=== PATIENT | male | born 2000 | race African-American/Black ===

== ENCOUNTER 2021-04-18 11:58 | Inpatient (IN) | payer MEDICAID, OTHER ==
--- NOTE | 2021-04-18 12:45 | ED ---
Psych HPI - General Source: patient, family, RN notes reviewed Mode of arrival: ambulatory Limitations: no limitations <Reno Castillo - Last Filed: 04/18/21 12:44> <Roberto Ortiz - Last Filed: 04/18/21 16:31> - General Chief Complaint: Psychiatric Symptoms Stated Complaint: Mental Health Time Seen by Provider: 04/18/21 12:15 - History of Present Illness Initial Comments: This a 21-year-old male presents emergency from for evaluation of psychiatric issues. Patient states he stressed out needs help he is not very forthcoming on information per family patient reportedly has been using drugs. Patient does admit to some drug use but states it was only marijuana reports includes use of acid. Denies being suicidal denies any current L call use but states that he occasionally uses. No physical complaints. (Reno Castillo) - Related Data Allergies Allergy/AdvReac Type Severity Reaction Status Date / Time No Known Allergies Allergy Verified 04/18/21 12:12 Review of Systems ROS Other: All systems not noted in ROS Statement are negative. <Reno Castillo - Last Filed: 04/18/21 12:44> ROS Other: All systems not noted in ROS Statement are negative. <Roberto Ortiz - Last Filed: 04/18/21 16:31> ROS Statement: Those systems with pertinent positive or pertinent negative responses have been documented in the HPI. Past Medical History Past Medical History: No Reported History History of Any Multi-Drug Resistant Organisms: None Reported Past Surgical History: No Surgical Hx Reported Past Psychological History: No Psychological Hx Reported Smoking Status: Vaper Past Alcohol Use History: Occasional Past Drug Use History: Marijuana <Reno Castillo - Last Filed: 04/18/21 12:44> General Exam Limitations: no limitations General appearance: alert, in no apparent distress Head exam: Present: atraumatic, normocephalic, normal inspection Eye exam: Present: normal appearance, PERRL, EOMI. Absent: scleral icterus, conjunctival injection, periorbital swelling ENT exam: Present: normal exam, normal oropharynx, mucous membranes moist Neck exam: Present: normal inspection, full ROM. Absent: tenderness, meningismus, lymphadenopathy Respiratory exam: Present: normal lung sounds bilaterally. Absent: respiratory distress, wheezes, rales, rhonchi, stridor Cardiovascular Exam: Present: regular rate, normal rhythm, normal heart sounds. Absent: systolic murmur, diastolic murmur, rubs, gallop, clicks Neurological exam: Present: alert, oriented X3 Skin exam: Present: warm, dry, intact, normal color. Absent: rash <Reno Castillo - Last Filed: 04/18/21 12:44> Course Vital Signs 04/18/21 12:05 Temperature 97.7 F Pulse Rate 68 Respiratory 18 Rate Blood Pressure 118/76 O2 Sat by Pulse 96 Oximetry Medical Decision Making <Roberto Ortiz - Last Filed: 04/18/21 16:31> - Medical Decision Making Patient reevaluated and reexamined by myself, Dr. Ortiz. Patient resting comfortably in bed. I do agree with. Findings. This includes diagnostic patient and treatment plan. Positive clinical certificate was completed. Patient was earlier seen by mental health services who did recommend admission. (Roberto Ortiz) - Lab Data Lab Results 04/18/21 Range/Units 13:05 Urine Opiates Screen Not Detected (NotDetected) Ur Oxycodone Screen Not Detected (NotDetected) Urine Methadone Screen Not Detected (NotDetected) Ur Propoxyphene Screen Not Detected (NotDetected) Ur Barbiturates Screen Not Detected (NotDetected) U Tricyclic Antidepress Not Detected (NotDetected) Ur Phencyclidine Scrn Not Detected (NotDetected) Ur Amphetamines Screen Not Detected (NotDetected) U Methamphetamines Scrn Not Detected (NotDetected) U Benzodiazepines Scrn Not Detected (NotDetected) Urine Cocaine Screen Not Detected (NotDetected) U Marijuana (THC) Screen Detected H (NotDetected) Disposition <Reno Castillo - Last Filed: 04/18/21 12:44> Is patient prescribed a controlled substance at d/c from ED?: No Decision Time: 16:31 <Roberto Ortiz - Last Filed: 04/18/21 16:31> Clinical Impression: Acute psychosis, Depression Disposition: TRANSFER TO PSYCH HOSP/UNIT Referrals: None,Stated [Primary Care Provider] - 1-2 days
[2021-04-18 13:47] LABS: Amphetamine Screen,Urine Not Detected (NotDetected); Barbiturate Screen,Urine Not Detected (NotDetected); Benzodiazepines Screen,Urine Not Detected (NotDetected); Cocaine Screen,Urine Not Detected (NotDetected); Methadone Screen, Urine Not Detected (NotDetected); Opiate Screen,Urine Not Detected (NotDetected); Oxycodone Screen, Urine Not Detected (NotDetected); Phencyclidine Screen,Urine Not Detected (NotDetected); Tricyclic Antidepressant,Urine Not Detected (NotDetected); Urn Cannabinoid Scrn Detected (NotDetected)
[2021-04-18 20:00] VITALS: RESP 16
[2021-04-18] MEDS ORDERED: LORazepam 2 MG/ML INJ IM PRN (20:17)
[2021-04-18] MEDS ORDERED: HALOPERIDOL LACTATE 5 MG/ML 1 ML VIAL IM STA (20:19)
[2021-04-18] MEDS ORDERED: HALOPERIDOL LACTATE 5 MG/ML 1 ML VIAL IM PRN (20:19)
[2021-04-18] MEDS ORDERED: LORazepam 2 MG/ML INJ IM STA (20:19)
[2021-04-18] MEDS ORDERED: ACETAMINOPHEN TAB 325 MG TAB PO PRN (20:20)
[2021-04-18] MEDS ORDERED: LORazepam 1 MG TAB PO PRN (20:20)
[2021-04-18] MEDS ORDERED: MAGNESIUM HYDROXIDE 2,400 MG/10 ML CUP PO PRN (20:20)
[2021-04-18] MEDS ORDERED: MAG HYDROX/AL HYDROX/SIMETH 30 ML CUP PO PRN (20:20)
--- NOTE | 2021-04-19 00:49 | P.PN ---
Progress Note - Text Progress Note Date: 04/19/21 The patient was sedated and couldn't be evaluated. Will attempt again tomorrow.
[2021-04-19 07:33] LABS: ALT 13 U/L (4-49); AST 29 U/L (17-59); African American GFR (CKD) >90 (>60 ml/min/1.73 sqM); Albumin 4.7 g/dL (3.5-5.0); Alkaline Phosphatase 54 U/L (38-126); Anion Gap 7 mmol/L; Blood Urea Nitrogen 13 mg/dL (9-20); Calcium 9.7 mg/dL (8.4-10.2); Carbon Dioxide 28 mmol/L (22-30); Chloride 105 mmol/L (98-107); Glucose 95 mg/dL (74-99); Non-African American GFR(CKD) >90 (>60 ml/min/1.73 sqM); Potassium 4.4 mmol/L (3.5-5.1); Sodium 140 mmol/L (137-145); Total Bilirubin 1.1 mg/dL (0.2-1.3); Total Protein 7.3 g/dL (6.3-8.2)
[2021-04-19 07:35] LABS: Basophils % (A) 0 %; Eosinophils % (A) 1 %; HCT 44.6 % (39.0-53.0); HGB 14.7 gm/dL (13.0-17.5); Lymphocytes % (A) 29 %; MCHC 33.1 g/dL (31.0-37.0); MCV 87.9 fL (80.0-100.0); Mean Platelet Volume 6.8; Monocytes # (A) 0.2 k/uL (0-1.0); Monocytes % (A) 6 %; Neutrophils # (A) 2.1 k/uL (1.3-7.7); Neutrophils % (A) 62 %; Platelet Count 253 k/uL (150-450); RBC 5.07 m/uL (4.30-5.90); RDW 13.6 % (11.5-15.5); WBC 3.5 k/uL (4.0-11.0)
[2021-04-19] MEDS: OLANZapine 10 MG TAB PO SCH (21:54)
--- NOTE | 2021-04-19 23:18 | HP ---
HISTORY AND PHYSICAL DATE OF SERVICE: 04/19/2021 IDENTIFYING DATA: The patient is a 21-year-old male. He apparently is homeless. He presented to the ED on petition signed by his aunt. CHIEF COMPLAINT: The patient was hallucinating and had disorganized behavior. HISTORY OF PRESENTING ILLNESS: The patient was not able to provide any reliable information about his current circumstances. The purpose for admission is related primarily to what was documented on the petition that the aunt initiated. According to the petition, the patient was responding to internal stimuli. He was "talking to himself and not making any sense. Asking do we hear the voices and whispering that he's hearing. Tell us the TV is asking hi8m to do things. He asked my daughters do they hear the voices, and that if they see the color red or black that it was bad." He was making bizarre and disorganized statements. He made nonsense statements much of the time. He has not had a prior psychiatric hospitalization or other mental health intervention, according to the patient. The patient provided some information and suggested at one point that he was living with his girlfriend though perhaps has moved out. When I questioned this in more detail, he gave conflicting information. He said that he was living on [address], though also said that he had spent the past 2 nights at his aunt's house. His uncle was at the house and had made statements that he was acting very strange. The patient could not provide more information about what was documented in the petition. In fact, he was very adamant about the idea that the petition was not accurate. He said the only difficulties he was having were that he was having spells of being hot and cold. He could not give any more details of how that impacted his coming to the hospital. The patient apparently has not been on any psychotropic medications, either in the recent past or in the more distant past. The patient himself denied having hallucinations, delusions, depression, anxiety or post-traumatic symptoms. On the other hand, the petition clearly documents thought disorder. The patient did not feel he needed to be in the hospital and was requesting discharge. I did make a telephone contact with the patient's aunt with the patient in the room, though she did not answer. I left a message for a return call. The patient is admitted for further evaluation. SUBSTANCE USE HISTORY: The only reliable information is that the urine drug screen was positive for marijuana. The patient seemed to indicate he did not use other abusive substances. PAST MEDICAL HISTORY: None reported. FAMILY AND SOCIAL HISTORY: No information available. MENTAL STATUS EXAMINATION: The patient was quite restless. He gave fairly good eye contact. He would respond to questions with fairly clear thoughts, though mostly he responded in an argumentative way, saying that the questions I was asking him were irrelevant. He tended to ramble and would veer off into different subjects. At times it was hard to follow his train of thought. He would make statements about things in the distant past when I was asking questions about what was documented in the petition. At one point he started making some comments about being forced to wear white underwear, though he could not explain what he meant by that or what that situation could have been. His affect was intense. He had an angry manner. His mood was depressed. He was significantly distressed. He has been having auditory hallucinations and suggestions of paranoid delusions. It was difficult to assess for thoughts of harm. On cognitive exam, the patient did not answer formal cognitive questions. He was aware of circumstances and surroundings. He was able to make reference to recent events that were consistent with what is documented in the medical record. PHYSICAL EXAMINATION: As per medical consultation. ASSESSMENT: This is a 21-year-old male who is diagnosed with psychosis. Given that there is such limited information, it is difficult to make any assessment of what factors may be in play or what might be the most reasonable options for a treatment plan. Strengths include the patient's [place] intelligence. Weaknesses include disorganized thinking. DIAGNOSES: 1. Psychosis not otherwise specified. 2. Marijuana use. RECOMMENDATIONS: Patient will be admitted for comprehensive medical, psychiatric and psychosocial evaluation. We will engage the patient in individual and group therapeutic activities. I indicated to the patient that we could start some medication that might be helpful. The patient was not inclined to be taking medications. I did write an order for Zyprexa 10 mg at bedtime and indicated if he thought that he could use some help in terms of a medication that might improve his thinking and processing, that he could ask for the medication. As noted, I have a telephone call into with a message for a call back. I will make another call in the morning. I had an extensive discussion with the patient regarding the petition process. We will focus on stabilization and discharge planning. ISIAH / TOMY: [id number] / GALINDO
--- NOTE | 2021-04-20 01:10 | P.CONS ---
History of Present Illness - Reason for Consult Consult date: 04/20/21 - History of Present Illness Patient is a 21-year-old male with a PMH of marijuana abuse who presented to the emergency room with complaints of feeling stressed out and needing help. The patient was admitted to the mental health unit where he was seen and evaluated for medical consult. He reported feeling well and denied active complaints. He denied taking any medications including any [id number]-[id number] ones at home. Denied any mental history. Denied chest pain, shortness of breath, fever, chills, cough. Denied abdominal pain, nausea, vomiting, diarrhea. Laboratory evaluation was reviewed and was unremarkable. Review of Systems Pertinent positives and negatives as discussed in HPI, a complete review of systems was performed and all other systems are negative. Past Medical History Past Medical History: No Reported History History of Any Multi-Drug Resistant Organisms: None Reported Past Surgical History: No Surgical Hx Reported Past Psychological History: No Psychological Hx Reported Smoking Status: Vaper Past Alcohol Use History: Occasional Past Drug Use History: Marijuana Medications and Allergies Home Medications Medication Instructions Recorded Confirmed Type No Known Home Medications 04/18/21 04/18/21 History Allergies Allergy/AdvReac Type Severity Reaction Status Date / Time No Known Allergies Allergy Verified 04/18/21 17:01 Physical Exam General: non toxic, no distress, appears at stated age, normal weight Derm: no unusual rashes/lesions no unusual ecchymoses, warm, dry Head: atraumatic, normocephalic, symmetric Eyes: EOMI, no lid lag, anicteric sclera, pupils equal round reactive to light ENT: Nose and ears atraumatic, no thrush, no pharyngeal erythema Neck: No thyromegaly, no cervical lymphadenopathy, trachea midline, supple Mouth: no lip lesion, mucus membranes moist Cardiovascular: S1S2 reg, no murmur, positive posterior tibial pulse bilateral, no edema, capillary refill less than 2 seconds Lungs: CTA bilateral, no rhonchi, no rales , no accessory muscle use Abdominal: soft, nontender to palpation, no guarding, no appreciable organome carly, normal bowel sounds Ext: no gross muscle atrophy, muscle strength 5 out of 5 in all 4 extremities grossly, no contractures, Neuro: CN II-XI grossly intact, light touch intact all 4 extremities, finger to nose within normal limits, Psych: Alert, oriented, appropriate affect Results CBC & Chem 7: 04/19/21 06:45 04/19/21 06:45 Labs: Abnormal Lab Results - Last 24 Hours (Table) 04/19/21 Range/Units 06:45 WBC 3.5 L (4.0-11.0) k/uL Assessment and Plan Plan: Marijuana abuse -Advised on the importance of cessation Psychosis -As per psychiatry Thank you for allowing us to participate in the care of this patient. We will follow peripherally. Do not hesitate to contact us with questions. Someone can be reached from the [facility] hospitalist group at all hours of the day at [phone].
--- NOTE | 2021-04-20 16:41 | PN ---
PROGRESS NOTE DATE OF SERVICE: 04/20/2021. CHIEF COMPLAINT: The patient was hallucinating and had disorganized behavior. INTERVAL HISTORY: The patient has been doing fair. He had a quiet day yesterday. He does come out in the day area some. He does not interact too much with others. He will wander around. He did attend one group in the afternoon. For the most part, he keeps to himself. It is noteworthy that last evening he did except the Zyprexa in spite of the statements he made when I interviewed him that he did not see reason to take any medications. He slept well last night. Today he has been up. Again he has been wandering around some though mostly keeps to himself. When I talked to him today, it was noted that he talked in a very soft voice and had a very constrained manner. He would respond appropriately to questions, though only said 1 or 2 words in response. It is also noted that his thoughts were clear and coherent. He did not make any unusual or disconnected statements. He was polite and appropriate in his manner. His affect was constricted. His mood reserved. He seemed somewhat distressed and appeared to have a worried manner. He does not show any outward signs of disorganized thoughts from his psychotic symptoms he was having. He made no indications of thoughts of harm. He was oriented and alert. ASSESSMENT: I will continue the current diagnosis and treatment plan. We will continue to engage the patient in individual and group therapeutic activities. The patient is showing some progress in terms of his thoughts being a little clearer. That may be the impact of the 1st dose of Zyprexa that he took. At this point, we will continue him on just 10 mg a day. If he shows a little more progress tomorrow, there might be consideration for increasing his dose to potentially benefit him long-term. On the other hand, I am somewhat reluctant about pushing issues regarding medications until he shows some clear comfort with that part of the treatment. We will focus on stabilization and discharge planning. MMAPRYLL / TOMY: [id number] /
[2021-04-20] MEDS: OLANZapine 10 MG TAB PO SCH (20:57)
--- NOTE | 2021-04-21 12:29 | PN ---
PROGRESS NOTE DATE OF SERVICE: 04/21/2021 CHIEF COMPLAINT: The patient was hallucinating and had disorganized behavior. INTERVAL HISTORY: The patient has been doing fair. He had a quiet day yesterday. He comes out on the unit. He will wander about. At times he almost appears as if he has a bewildered manner. He pays some attention to things going on around him. He will interact a little, though he has a very quiet manner in his interaction. He attended two groups yesterday. It is noted that when I saw him for the interview and wrote my progress note, the patient presented in a very calm, reserved manner. He was somewhat apologetic. He was very polite. He had no complaints and seemed to be showing improvement. Later on in the day he came back to the office and he was in a more intense manner. He has gone back to making some complaints about why he is in the hospital and things about the petition process. He said it took him a while to fall asleep last night though he did some reading and got sleepy after he took his evening medication. Today he is up. He did attend a group this morning. Today when he is talking to me it is noted that he is in a very calm way. He, again, said thank you for the treatment that he has been receiving. He said he thinks the medications are helping him and he recognizes that he probably has been needing medications. He was not reluctant at all in regard to continuing in the hospital and continuing on medications. Seemed to be quite accepting of the plan for following through with a likely deferral and then setting up outpatient followup. He says he is comfortable going to [facility]. He anticipates living with his aunt in the interim and then hopefully getting set up in his own living situation. He tolerates his psychotropic medications. MENTAL STATUS: Patient sat with a little slowness in his movements. He gave fairly good eye contact. He talked in a soft voice. His kayleigh was somewhat slow. He answered questions with brief responses. He made some spontaneous comments, mainly in a very pleasant manner. His mood was reserved. He did not seem to be significantly distressed. He expressed no thoughts of harm to self or others. He does seem to suggest some continued issues of thought disorder, though is improving. He is oriented and alert. ASSESSMENT: I will continue the current diagnosis and treatment plan. I will increase Zyprexa to 15 mg at bedtime. The patient does seem to be showing progress. I discussed discharge planning issues with the patient. We will need to work on setting up followup through [facility] and possibly may need to make some contacts with family as far as living circumstances. We will focus on stabilization and discharge planning. ISIAH / TOMY: [id number] /
[2021-04-21 17:21] LABS: Amorphous Sediment,Urine Rare /hpf; Appearance,Urine Turbid (Clear); Bacteria,Urine Occasional /hpf; Bilirubin,Urine Negative (Negative); Blood,Urine Negative (Negative); Color,Urine Yellow; Glucose,Urine (UA) Negative (Negative); Ketones,Urine Negative (Negative); Leukocyte Esterase,Urine Trace (Negative); Mucus,Urine Rare /hpf; Nitrite,Urine Negative (Negative); Protein,Urine 1+ (Negative); RBC,Urine 2 /hpf (0-5); Specific Gravity,Urine 1.022 (1.001-1.035); Squamous Epithelial Cell,Urine 1 /hpf (0-4)
[2021-04-21] MEDS ORDERED: OLANZapine 10 MG TAB PO SCH (21:00)
--- NOTE | 2021-04-22 10:32 | P.PN ---
Progress Note - Text Progress Note Date: 04/22/21 Interval History: Patient was seen lying in his bed this morning and was directable and agreeable to speak with writer technical publications in the office. Patient appears to have fair hygiene and grooming and appeared to have a depressive affect. He spoke briefly about why he came in the hospital and states that he was seen things and hearing voices. He claims that he was hallucinating at home. He was fairly vague about his living situation and claims that now he is "kind of homeless". He claims that he has the motivation now to "buy a car and buy a house and get ". He states that he wants to be discharged so he can accomplish these goals. He was not able to describe the steps that he needs to take to achieve this. He states that his mood is depressed at times. He is denying any anxiety today. He states that she does hear voices at times however understands that they are people walking outside of his room. He states that he did not sleep well last night. At this time patient denies any suicidal or homical ideations, intent or plan. Patient denies any visual hallucinations and denies any paranoia or delusions. Patient denies any side effects from the medications and has been compliant with meds. Mental Status Exam: General Appearance: [Patient appears to be short in stature, well dressed, stated age is alert, directable, and cooperative.] Behavior: [Patient is calmly seated without any agitated behavior.] Constricted Speech: Patient's speech is fluent and nonpressured. Soft tone Mood/Affect: Mood is depressed however improving mildly, affect is congruent and constricted. Suicidality/Homicidality: Patient denies having any suicidal or homicidal ideation intent or plan. Perceptions: Patient denies any visual hallucinations [and denies any auditory hallucinations] Though content/process: Patient rambles, is tangential and circumstantial. Vague. Memory and concentration: AOX3, grossly intact for the purposes of this session Judgment and insight: Poor, Improving mildly Assessment Psychosis unspecified Cannabis use disorder Plan: -Patient continues to meet criteria for inpatient psychiatric admission for symptom stabilization and safety. Patient has [not] signed [adult voluntary form and] [medication consent] and was placed in patient's chart. -Medications: Decrease Zyprexa down to 10 mg daily at bedtime for psychosis/insomnia as patient does look oversedated. Added melatonin 5 mg daily at bedtime for sleep. Added Prozac 20 mg daily for mood/anxiety -When necessary Ativan and Haldol for agitation/aggression. -NRT - not needed as patient does not smoke -SW on board for discharge planning. Encouraged the patient to participate in milieu. Likely discharge in 2-3 days.
[2021-04-22] MEDS: FLUoxetine HCL 20 MG CAP PO SCH (12:08)
[2021-04-22] MEDS ORDERED: OLANZapine 10 MG TAB PO SCH (21:00)
[2021-04-22] MEDS ORDERED: MELATONIN 5 MG TABLET PO SCH (21:00)
[2021-04-23] MEDS: FLUoxetine HCL 20 MG CAP PO SCH (08:25)
[2021-04-23] MEDS ORDERED: diphenhydrAMINE 25 MG CAP PO PRN (10:25)
--- NOTE | 2021-04-23 10:26 | P.PN ---
Progress Note - Text Progress Note Date: 04/23/21 Interval History: Patient was seen lying in his bed this morning and was directable and agreeable to speak with sql report writer in the office. Patient appears to have fair hygiene and grooming. Patient was earlier seen in group. He continues to have a soft tone of voice however appeared to be more logical and communicative with sql report writer today. He claims that the voices have subsided for the most part however continues to state that "I hear voices outside the door" referring to staff and other patients in the hallways. He was fairly vague about his living situation once again however did state that he wants to be discharged today and go to his aunt's house. He continues to display fairly poor insight into his condition however is agreeable to continue with treatment and take his medications. He continues to claim that he wants to be discharged so he can reach his goals of "buy a car and buy a house and get ". He claims that his mood has been improving and is denying any anxiety today. He states that he did not sleep well last night. At this time patient denies any suicidal or homical ideations, intent or plan. Patient denies any visual hallucinations and denies any paranoia or delusions. Patient denies any side effects from the medications and has been compliant with meds. Mental Status Exam: General Appearance: Patient appears to be short in stature, well dressed, stated age is alert, directable, and cooperative. Behavior: Patient is calmly seated without any agitated behavior. Constricted Speech: Patient's speech is fluent and nonpressured. Soft tone Mood/Affect: Mood is improving mildly, affect is congruent and constricted. Suicidality/Homicidality: Patient denies having any suicidal or homicidal ideation intent or plan. Perceptions: Patient denies any visual hallucinations and denies any auditory hallucinations Though content/process: More goal oriented today. Not endorsing any delusions or paranoia. Memory and concentration: AOX3, grossly intact for the purposes of this session Judgment and insight: Improving mildly Assessment Psychosis unspecified Cannabis use disorder Plan: -Patient continues to meet criteria for inpatient psychiatric admission for symptom stabilization and safety. Patient has not signed adult voluntary form and medication consent and was placed in patient's chart. -Medications: Increased Zyprexa down to 15 mg daily at bedtime for psychosis/insomnia. Increased melatonin 10 mg daily at bedtime for sleep. Co ntinue with Prozac 20 mg daily for mood/anxiety. Added Benadryl 25 mg when necessary for insomnia. -When necessary Ativan and Haldol for agitation/aggression. -NRT - not needed as patient does not smoke -SW on board for discharge planning. Encouraged the patient to participate in milieu. Likely discharge in 1-2 days.
[2021-04-23] MEDS ORDERED: MELATONIN 5 MG TABLET PO SCH (21:00)
[2021-04-23] MEDS ORDERED: OLANZapine 5 MG TAB PO SCH (21:00)
[2021-04-24] MEDS: FLUoxetine HCL 20 MG CAP PO SCH (09:54)
[2021-04-24 10:05] VITALS: BP 122/64; PULSE 84; TEMP 97.5
--- NOTE | 2021-04-24 11:15 | P.DS ---
Providers Date of admission: 04/18/21 19:45 Expected date of discharge: 04/24/21 Attending physician: Filiberto Pearce MD Consults: 04/18/21 20:20 Consult Physician Routine Consulting Provider: Rajan Sloan Consult Reason/Comments: history and physical/medical management Do you want consulting provider notified?: Yes Primary care physician: Stated None - Discharge Diagnosis(es) (1) Unspecified psychosis Current Visit: Yes Status: Acute Priority: High (2) Cannabis abuse Current Visit: Yes Status: Acute Priority: Medium Hospital Course: Admission HPI: Admission note was completed by Dr. Huntley "patient is a 21-year-old male. He apparently is homeless. He presented to the ED on petition signed by his aunt. Patient was hallucinating and had disorganized behavior. The patient was not able to provide any reliable information about his current circumstances. The purpose for admission is related primarily to what was documented on the petition that the aunt initiated. According to the petition, the patient was responding to internal stimuli. He was "talking to himself and not making any sense". Asking to hear voices whispering that he is hearing. s do things. He asked my daughter's do they hear the voices, and if they see the color red or black that it was bad." He has not had any prior psychiatric hospitalization or mental health intervention, according to the patient. The patient provided some information and suggested one point that he was living with his girlfriend through though perhaps has moved out. When I questioned this in more detail he gave conflicting information. He said that he was living on [address], though also said that he had spent the last 2 nights it is intense. His uncle was at the house and had made statements that he was acting very strange. The patient could not provide more information about what was documented in the petition. In fact, he was very adamant about the idea that the petition was not accurate. He said the only difficulties he was having where that he was having spells of being hot and cold. He could not give any more details of how that impacted his coming to the hospital. The patient apparently has not been on any psychotropic medications, either in the recent past or in the more distant past. The patient himself denied having hallucinations, delusions, depression, anxiety or PTSD symptoms. On the other hand, the petition clearly documents thought disorder. The patient did not feel he needed to be in the hospital was requesting discharge. I did make a telephone contact with the patient's aunt with the patient in the room though she did not answer. I left a message for a return call. The patient is admitted for further evaluation. " Hospital course: Upon admission to the unit patient was initially bizarre and psychotic. Patient was however initially reluctant to take medications however with time and treatment patient gradually began being more compliant with treatment on the unit. Patient got along well with other patients on the unit and followed unit protocol. Patient was compliant with the medications and denied any side effects throughout hospital course. Patient was started on Zyprexa and titrated to a dose of 15 mg daily at bedtime for psychosis/insomnia. Patient was also started on melatonin and titrated up to dose of 10 mg daily at bedtime for sleep. Patient was also started on Prozac 20 mg daily for mood/anxiety.. Patient spoke of his stressors and engaged in therapy both group and individual. Patient was also seen by medical team for history and physical exam. Throughout the course of the hospitalization patient gradually improved with regards to psychosis, mood, anxiety, sleep and became more future oriented with improved insight and judgment. On the day of discharge patient denied any suicidal or homicidal ideations intent or plan denied any auditory or visual hallucinations. Patient endorsed wanting to live for his future and family and also to get a job in a house. The patient denied any access to guns or weapons. Patient denied any paranoia and did not endorse any delusions. Patient does have a significant history of substance abuse and was counseled on abstaining from all substances including alcohol and marijuana. Patient was offered however declined inpatient substance-abuse rehab. Patient was also counseled on the medications and need for regular compliance and was encouraged to follow-up with their outpatient appointment for mental health and also for primary care. Prior to discharge a family meeting will be arranged by social work msw to answer any questions and ensure safety upon discharge. Mental status exam: General Appearance: Patient appears to be short in stature, well dressed, stated age is alert, pleasant, and cooperative. Patient is in no acute distress and has improved hygiene and grooming Behavior: Patient is calmly seated without any agitated behavior. Speech: Patient's speech is fluent and nonpressured. Mood/Affect: Patient reports their mood is "better", affect is congruent and euthymic. Suicidality/Homicidality: Patient denies having any suicidal or homicidal ideation intent or plan. Perceptions: Patient denies any auditory or visual hallucinations. Though content/process: There is no evidence of any delusional thought content and thought process is linear and goal-directed. Memory and concentration: AOX3, grossly intact for the purposes of this session. Can spell "WORLD" backwards correctly. Judgment and insight: chronically poor, however has improved with guarded prognosis Impression: Psychosis unspecified Cannabis use disorder Plan: -Continue with discharge today as patient has improved and stabilized psychiatrically and is not currently an imminent threat to himself and/or others. Patient will remain at chronically elevated risk for harm to self and/or others due to his substance abuse. -Continue medications: Zyprexa 15 mg daily at bedtime for psychosis/insomnia, melatonin 10 mg for insomnia and prozac 20mg daily for mood/anxiety. -Patient was counseled on the need for medication compliance and appropriate follow-up at mental health and also primary care for medical issues. Patient verbalized understanding and agreed. -Social work to arrange for and conduct family meeting to ensure safety upon discharge and answer any questions/concerns. Social work also to arrange for patients follow up appointments with [facility] for psychiatric care along with follow up with primary care provider. Patient will be going back to stay with his aunt upon discharge. -Patient counseled on abstaining from recreational drugs and marijuana and alcohol. Was informed/educated on the adverse effects on their physical and mental health. Patient verbally agreed and understood. Patient was offered substance abuse treatment however declined at this time. -Patient was instructed to return to the hospital or seek immediate medical care if their psychiatric or medical symptoms do worsen or reoccur. Allergies Allergy/AdvReac Type Severity Reaction Status Date / Time No Known Allergies Allergy Verified 04/18/21 17:01 Laboratory Results WBC 3.5 k/uL (4.0-11.0) L 04/19/21 06:45 RBC 5.07 m/uL (4.30-5.90) 04/19/21 06:45 Hgb 14.7 gm/dL (13.0-17.5) 04/19/21 06:45 Hct 44.6 % (39.0-53.0) 04/19/21 06:45 MCV 87.9 fL (80.0-100.0) 04/19/21 06:45 MCH 29.0 pg (25.0-35.0) 04/19/21 06:45 MCHC 33.1 g/dL (31.0-37.0) 04/19/21 06:45 RDW 13.6 % (11.5-15.5) 04/19/21 06:45 Plt Count 253 k/uL (150-450) 04/19/21 06:45 MPV 6.8 04/19/21 06:45 Neutrophils % 62 % 04/19/21 06:45 Lymphocytes % 29 % 04/19/21 06:45 Monocytes % 6 % 04/19/21 06:45 Eosinophils % 1 % 04/19/21 06:45 Basophils % 0 % 04/19/21 06:45 Neutrophils # 2.1 k/uL (1.3-7.7) 04/19/21 06:45 Lymphocytes # 1.0 k/uL (1.0-4.8) 04/19/21 06:45 Monocytes # 0.2 k/uL (0-1.0) 04/19/21 06:45 Eosinophils # 0.0 k/uL (0-0.7) 04/19/21 06:45 Basophils # 0.0 k/uL (0-0.2) 04/19/21 06:45 Sodium 140 mmol/L (137-145) 04/19/21 06:45 Potassium 4.4 mmol/L (3.5-5.1) 04/19/21 06:45 Chloride 105 mmol/L (98-107) 04/19/21 06:45 Carbon Dioxide 28 mmol/L (22-30) 04/19/21 06:45 Anion Gap 7 mmol/L 04/19/21 06:45 BUN 13 mg/dL (9-20) 04/19/21 06:45 Creatinine 1.09 mg/dL (0.66-1.25) 04/19/21 06:45 Est GFR (CKD-EPI)AfAm >90 (>60 ml/min/1.73 sqM) 04/19/21 06:45 Est GFR (CKD-EPI)NonAf >90 (>60 ml/min/1.73 sqM) 04/19/21 06:45 Glucose 95 mg/dL (74-99) 04/19/21 06:45 Calcium 9.7 mg/dL (8.4-10.2) 04/19/21 06:45 Total Bilirubin 1.1 mg/dL (0.2-1.3) 04/19/21 06:45 AST 29 U/L (17-59) 04/19/21 06:45 ALT 13 U/L (4-49) 04/19/21 06:45 Alkaline Phosphatase 54 U/L (38-126) 04/19/21 06:45 Total Protein 7.3 g/dL (6.3-8.2) 04/19/21 06:45 Albumin 4.7 g/dL (3.5-5.0) 04/19/21 06:45 TSH 2.150 mIU/L (0.465-4.680) 04/19/21 06:45 Urine Color Yellow 04/21/21 17:04 Urine Appearance Turbid (Clear) 04/21/21 17:04 Urine pH 7.0 (5.0-8.0) 04/21/21 17:04 Ur Specific [place] 1.022 (1.001-1.035) 04/21/21 17:04 Urine Protein 1+ (Negative) H 04/21/21 17:04 Urine Glucose (UA) Negative (Negative) 04/21/21 17:04 Urine Ketones Negative (Negative) 04/21/21 17:04 Urine Blood Negative (Negative) 04/21/21 17:04 Urine Nitrite Negative (Negative) 04/21/21 17:04 Urine Bilirubin Negative (Negative) 04/21/21 17:04 Urine Urobilinogen 3.0 mg/dL (<2.0) 04/21/21 17:04 Ur Leukocyte Esterase Trace (Negative) H 04/21/21 17:04 Urine RBC 2 /hpf (0-5) 04/21/21 17:04 Ur Squamous Epith Cells 1 /hpf (0-4) 04/21/21 17:04 Amorphous Sediment Rare /hpf (None) H 04/21/21 17:04 Urine Bacteria Occasional /hpf (None) H 04/21/21 17:04 Urine Mucus Rare /hpf (None) H 04/21/21 17:04 Urine Opiates Screen Not Detected (NotDetected) 04/18/21 13:05 Ur Oxycodone Screen Not Detected (NotDetected) 04/18/21 13:05 Urine Methadone Screen Not Detected (NotDetected) 04/18/21 13:05 Ur Propoxyphene Screen Not Detected (NotDetected) 04/18/21 13:05 Ur Barbiturates Screen Not Detected (NotDetected) 04/18/21 13:05 U Tricyclic Antidepress Not Detected (NotDetected) 04/18/21 13:05 Ur Phencyclidine Scrn Not Detected (NotDetected) 04/18/21 13:05 Ur Amphetamines Screen Not Detected (NotDetected) 04/18/21 13:05 U Methamphetamines Scrn Not Detected (NotDetected) 04/18/21 13:05 U Benzodiazepines Scrn Not Detected (NotDetected) 04/18/21 13:05 Urine Cocaine Screen Not Detected (NotDetected) 04/18/21 13:05 U Marijuana (THC) Screen Detected (NotDetected) H 04/18/21 13:05 Coronavirus (PCR) Not Detected (Not Detectd) 04/18/21 16:11 Vital Signs Temp 97.5 F L 04/24/21 09:56 Pulse 84 04/24/21 09:56 Resp 16 04/24/21 09:56 BP 122/64 04/24/21 09:56 Pulse Ox 96 04/24/21 09:56 Patient Condition at Discharge: Stable Plan - Discharge Summary New Discharge Prescriptions: New Melatonin 10 mg PO HS 30 Days tablet FLUoxetine HCL [PROzac] 20 mg PO DAILY 30 Days cap OLANZapine [ZyPREXA] 15 mg PO HS 30 Days tablet Discharge Medication List FLUoxetine HCL [PROzac] 20 mg PO DAILY 30 Days cap 04/24/21 [Rx] Melatonin 10 mg PO HS 30 Days tablet 04/24/21 [Rx] OLANZapine [ZyPREXA] 15 mg PO HS 30 Days tablet 04/24/21 [Rx] Follow up Appointment(s)/Referral(s): None,Stated [Primary Care Provider] - 1-2 days Activity/Diet/Wound Care/Special Instructions: Activity and diet as tolerated. Avoid the use of street drugs and alcohol. Take all medications as prescribed. When you are in need of refills on your medications please contact your medical provider and/or outpatient psychiatrist to have this done. Please go to scheduled outpatient appointment for aftercare treatment. If symptoms return or become worse, call the crisis line at and/or go to the nearest emergency room for evaluation. Discharge Disposition: HOME SELF-CARE
== END 2021-04-24 15:21 | disposition home or self-care (01) | DRG 885 ==
LOC: EDSEX → EC 11:58 → 3MHU 19:45
PROVIDERS: ADMIT Psychiatry & Neurology Psychiatry; ATTEND Psychiatry & Neurology Psychiatry
DX: F23 Brief psychotic disorder (principal); F32.9 Major depressive disorder, single episode, unspecified; F12.10 Cannabis abuse, uncomplicated; F41.9 Anxiety disorder, unspecified; G47.00 Insomnia, unspecified; Z59.0 Homelessness; Z20.822 Contact with and (suspected) exposure to COVID-19
CPT/HCPCS: 80053; 80306; 81001; 84443; 85025; 87635; 99285

== ENCOUNTER 2021-04-27 21:31 | Inpatient (IN) | payer MEDICAID, OTHER ==
--- NOTE | 2021-04-27 22:22 | ED ---
Psych HPI - General Chief Complaint: Psychiatric Symptoms Stated Complaint: Mental Health Time Seen by Provider: 04/27/21 22:14 Source: patient, police, RN notes reviewed, old records reviewed Mode of arrival: ambulatory Limitations: no limitations - History of Present Illness Initial Comments: This is a 21 old male to the ER for evaluation patient presents today for evaluation regarding mental health. A short PD under petition. Patient's hearing hallucinations seeing things and acutely psychotic. Poor historian history obtained from EMS PD and patient's prior charting MD Complaint: altered mental status -: unknown Associated Psychiatric Symptoms: racing thoughts, auditory hallucinations Quality: constant Improves With: none Worsens With: none Context: not taking psychiatric medications, significant life stressor Associated Symptoms: denies other symptoms Treatments Prior to Arrival: placed on mental health hold - Related Data Previous Rx's Medication Instructions Recorded FLUoxetine HCL [PROzac] 20 mg PO DAILY 30 Days cap 04/24/21 Melatonin 10 mg PO HS 30 Days tablet 04/24/21 OLANZapine [ZyPREXA] 15 mg PO HS 30 Days tablet 04/24/21 Allergies Allergy/AdvReac Type Severity Reaction Status Date / Time No Known Allergies Allergy Verified 04/28/21 07:53 Review of Systems ROS Statement: Those systems with pertinent positive or pertinent negative responses have been documented in the HPI. ROS Other: All systems not noted in ROS Statement are negative. Past Medical History Past Medical History: No Reported History History of Any Multi-Drug Resistant Organisms: None Reported Past Surgical History: No Surgical Hx Reported Past Psychological History: Bipolar, Depression Smoking Status: Vaper Past Alcohol Use History: Occasional Past Drug Use History: Marijuana General Exam Limitations: no limitations General appearance: alert, in no apparent distress Head exam: Present: atraumatic, normocephalic, normal inspection Eye exam: Present: normal appearance, PERRL, EOMI. Absent: scleral icterus, conjunctival injection, periorbital swelling ENT exam: Present: normal exam, mucous membranes moist Neck exam: Present: normal inspection. Absent: tenderness, meningismus, lymphadenopathy Respiratory exam: Present: normal lung sounds bilaterally. Absent: respiratory distress, wheezes, rales, rhonchi, stridor Cardiovascular Exam: Present: regular rate, normal rhythm, normal heart sounds. Absent: systolic murmur, diastolic murmur, rubs, gallop, clicks GI/Abdominal exam: Present: soft, normal bowel sounds. Absent: distended, tenderness, guarding, rebound, rigid Extremities exam: Present: normal inspection, full ROM, normal capillary refill. Absent: tenderness, pedal edema, joint swelling, calf tenderness Back exam: Present: normal inspection Neurological exam: Present: alert, oriented X3, CN II-XII intact Psychiatric exam: Present: normal affect, normal mood Skin exam: Present: warm, dry, intact, normal color. Absent: rash Course Vital Signs 04/27/21 21:59 Temperature 97.8 F Pulse Rate 67 Respiratory 20 Rate Blood Pressure 115/76 O2 Sat by Pulse 99 Oximetry - Reevaluation(s) Reevaluation #1: Medically clear for psychiatric evaluation Medical Decision Making - Medical Decision Making 21 male seen evaluation psychiatry, patient be admitted for psychiatric evaluation and treatment - Lab Data Lab Results 04/27/21 04/27/21 Range/Units 22:26 23:28 Urine Color Colorless Urine Appearance Clear (Clear) Urine pH 6.0 (5.0-8.0) Ur Specific [place] 1.004 (1.001-1.035) Urine Protein Negative (Negative) Urine Glucose (UA) Negative (Negative) Urine Ketones Negative (Negative) Urine Blood Negative (Negative) Urine Nitrite Negative (Negative) Urine Bilirubin Negative (Negative) Urine Urobilinogen <2.0 (<2.0) mg/dL Ur Leukocyte Esterase Negative (Negative) Urine Opiates Screen Not Detected (NotDetected) Ur Oxycodone Screen Not Detected (NotDetected) Urine Methadone Screen Not Detected (NotDetected) Ur Propoxyphene Screen Not Detected (NotDetected) Ur Barbiturates Screen Not Detected (NotDetected) U Tricyclic Antidepress Not Detected (NotDetected) Ur Phencyclidine Scrn Not Detected (NotDetected) Ur Amphetamines Screen Not Detected (NotDetected) U Methamphetamines Scrn Not Detected (NotDetected) U Benzodiazepines Scrn Not Detected (NotDetected) Urine Cocaine Screen Not Detected (NotDetected) U Marijuana (THC) Screen Detected H (NotDetected) Coronavirus (PCR) Not Detected (Not Detectd) Disposition Clinical Impression: Acute psychosis, Unspecified psychosis Disposition: TRANSFER TO PSYCH HOSP/UNIT Condition: Fair Is patient prescribed a controlled substance at d/c from ED?: No
[2021-04-27 22:36] LABS: Appearance,Urine Clear (Clear); Bilirubin,Urine Negative (Negative); Blood,Urine Negative (Negative); Color,Urine Colorless; Glucose,Urine (UA) Negative (Negative); Ketones,Urine Negative (Negative); Leukocyte Esterase,Urine Negative (Negative); Nitrite,Urine Negative (Negative); Protein,Urine Negative (Negative); Specific Gravity,Urine 1.004 (1.001-1.035); Urobilinogen,Urine <2.0 mg/dL (<2.0)
[2021-04-27 22:45] LABS: Amphetamine Screen,Urine Not Detected (NotDetected); Barbiturate Screen,Urine Not Detected (NotDetected); Benzodiazepines Screen,Urine Not Detected (NotDetected); Cocaine Screen,Urine Not Detected (NotDetected); Methadone Screen, Urine Not Detected (NotDetected); Opiate Screen,Urine Not Detected (NotDetected); Oxycodone Screen, Urine Not Detected (NotDetected); Phencyclidine Screen,Urine Not Detected (NotDetected); Tricyclic Antidepressant,Urine Not Detected (NotDetected); Urn Cannabinoid Scrn Detected (NotDetected)
[2021-04-28] MEDS ORDERED: MAG HYDROX/AL HYDROX/SIMETH 30 ML CUP PO PRN (00:21)
[2021-04-28] MEDS ORDERED: ACETAMINOPHEN TAB 325 MG TAB PO PRN (00:21)
[2021-04-28] MEDS ORDERED: MAGNESIUM HYDROXIDE 2,400 MG/10 ML CUP PO PRN (00:21)
[2021-04-28] MEDS: OLANZapine 7.5 MG TAB PO SCH ×2 (01:21→20:13)
[2021-04-28] MEDS: HALOPERIDOL LACTATE 5 MG/ML 1 ML VIAL IM PRN (02:05)
[2021-04-28] MEDS: LORazepam 2 MG/ML INJ IM PRN (02:05)
[2021-04-28] MEDS ORDERED: chlorproMAZINE 25 MG/ML 2 ML AMP IM STA (02:34)
[2021-04-28] MEDS ORDERED: LORazepam 2 MG/ML INJ IM STA (02:35)
--- NOTE | 2021-04-28 02:43 | P.MHFACE ---
Face to Face Restrain/Seclus - Evaluation Patient's Immediate Situation: Violent behavior, Other (see comment) Patient's Immediate Situation - Comment: not following care orders , not cooperative with staff. violent behavior resisting care Patient's Reaction to the Intervention: Appropriate, Calm, Relaxed, Cooperative Patient's Medical & Behavioral Condition: Awake, Alert, Follows directions Need to Continue or Terminate Restraint or Seclusion: Terminate Face to Face Eval of Restraint Date: 04/28/21 Face to Face Eval of Restraint Time: 02:30
[2021-04-28] MEDS: FLUoxetine HCL 20 MG CAP PO SCH ×2 (11:22→11:52)
[2021-04-28] MEDS: NICOTINE 21MG/24HR PATCH TRANSDERM SCH ×2 (11:22→11:52)
--- NOTE | 2021-04-28 13:03 | P.HP ---
Psychiatric H&P - . H&P Date: 04/28/21 History & Physical: IDENTIFYING Data: Alexx Castaneda is a 21-year-old single male, who is currently homeless, unemployed, has psychiatric history of psychosis, and no reported medical history who was discharged from this unit last week, and brought back yesterday by the police because of psychotic and disorganized behavior. The patient has been admitted to our inpatient psychiatric services after been transferred from ED. The patient has been admitted on involuntary basis to our service. CHIEF COMPLAINT: Patient presented confused, disorganized and not able to give any specific complaint but states "I shouldn't be here" HISTORY OF PRESENT ILLNESS: the patient was recently discharged from this unit on 04/24/21 with discharge diagnosis of psychosis and was prescribed on discharge Prozac 20 mg daily, Zyprexa 15 mg at bedtime, and melatonin at bedtime. The patient was brought back to the hospital by the police yesterday after apparently his aunt called them. As per petition paper by the uniform patrol police officer; the patient presented confused, disoriented, and speaking statement didn't make sense such as "he couldn't be himself if he was facing the wall". According to his aunt "Vandana" the patient was not taking his medications and was hallucinating. Patient was saying people on the TV are out to get him and he was hearing erratic conversation on the TV. Also, she added patient was always acting very agitated. After the patient brought to the hospital and admitted to the unit, he became very agitated at the unit,refused admission, resisted security and was trying to get out of the wheelchair and probably elope. According to the nursing note, patient continued to be agitated was bizarre thoughts. Patient begun to take threatening position with clenching his fists and ready to fight. He refused to cooperate, and started to flight staff. More supportive the staff called to the unit and the patient was medicated with Haldol 5 mg IM and Ativan 1 mg and the patient was placed in 4-point restraints for safety. Based on evaluation today,the patient was calm but not cooperative, very guarded, paranoid, and internally preoccupied. The patient was not able to give informative history, or explain why he was brought back to the hospital. He was talking about try to get his phone from his aunt, and he should not be here. Patient was talking bizarre and nonsensical that when he asking about paranoid thoughts or any delusions, answered "I'm feeling alone", "I have abandonment issue". Patient reports that he doesn't like to be around people but he didn't answer questions about delusions, hallucinations, or paranoid thoughts. He was asking me to write down that his thoughts are in peace. Didn't answer question if he was taking medications are not after discharge, but apparently he was not taking medications. Patient refused to sign consent to take his psychiatric medications during this hospitalization after he read the consent for more than 10 minutes. Patient continued to state "I shouldn't be here", but he didn't show any aggressive or agitated behavior today. Patient didn't answer anymore questions, and he left. Generally, the patient presented disorganized, with very poor eye contact and at times confused. PAST PSYCHIATRIC HISTORY: Previous diagnoses: psychosis NOS, cannabis use disorder Previous psychiatric hospitalizations: patient was recently discharged from this unit on 04/24/21. Previous suicide attempts: none reported Previous outpatient psychiatric treatment: none reported. Patient reports didn't follow with any outpatient treatment. Current psychiatric medications: patient was discharged last week on medications Zyprexa, Prozac, and melatonin SUBSTANCE ABUSE HISTORY: patient is very poor historian due to disorganized thoughts. No information available, but according to his previous admission he was positive for marijuana. This time drug screen was negative. Social History: no information available. Patient is homeless, on Social Security disability. Patient refused to give consent to speak to his aunt. History of psychological trauma: none reported FAMILY HISTORY: no information available Medical History: none reported MENTAL STATUS EVALUATION: Appearance: Appears stated age, not-well groomed, average body built, and no specific features. Gait/ posture: Steady gait, normal arm swinging, no abnormal movements, with relaxed posture. Attitude and Behavior: Not cooperative, not engaged, poor eye contact during course of interview. Motor Activity: decreased psychomotor activity. Speech: spontaneous, slow rate, rhythm, and articulation. soft volume. Not pressured. Mood: "anxious" Affect: flat Thought process: disorganized. Thought content: Paranoid delusions, no report of suicidal thoughts, homicidal thoughts, intentions, or plans. Perception: Patient seems internally preoccupied. Reportedly has auditory hallucinations. Alertness: No impairment. Concentration: impaired Orientation: Oriented to time, place, person and situation Insight regarding psychiatric condition: very limited Judgment regarding daily activities and social situation: limited Impulse control: limited Strengths: stable general medical condition. Financial income. Challenges: poor compliance with treatment. Homeless. Limited social supports. Allergies Allergy/AdvReac Type Severity Reaction Status Date / Time No Known Allergies Allergy Verified 04/28/21 07:53 Vital Signs Temp 97.4 F L 04/28/21 02:10 Pulse 80 04/28/21 02:10 Resp 18 04/28/21 02:10 BP 114/56 04/28/21 02:10 Pulse Ox 97 04/28/21 02:10 Intake & Output 04/27/21 04/28/21 04/28/21 18:59 06:59 18:59 Weight 68.039 kg Review of Lab results: Laboratory Last Values Urine Color Colorless 04/27/21 22:26 Urine Appearance Clear (Clear) 04/27/21 22:26 Urine pH 6.0 (5.0-8.0) 04/27/21 22:26 Ur Specific [place] 1.004 (1.001-1.035) 04/27/21 22:26 Urine Protein Negative (Negative) 04/27/21 22:26 Urine Glucose (UA) Negative (Negative) 04/27/21 22:26 Urine Ketones Negative (Negative) 04/27/21 22:26 Urine Blood Negative (Negative) 04/27/21 22:26 Urine Nitrite Negative (Negative) 04/27/21 22:26 Urine Bilirubin Negative (Negative) 04/27/21 22:26 Urine Urobilinogen <2.0 mg/dL (<2.0) 04/27/21 22:26 Ur Leukocyte Esterase Negative (Negative) 04/27/21 22:26 Urine Opiates Screen Not Detected (NotDetected) 04/27/21 22:26 Ur Oxycodone Screen Not Detected (NotDetected) 04/27/21 22:26 Urine Methadone Screen Not Detected (NotDetected) 04/27/21 22:26 Ur Propoxyphene Screen Not Detected (NotDetected) 04/27/21 22:26 Ur Barbiturates Screen Not Detected (NotDetected) 04/27/21 22:26 U Tricyclic Antidepress Not Detected (NotDetected) 04/27/21 22:26 Ur Phencyclidine Scrn Not Detected (NotDetected) 04/27/21 22:26 Ur Amphetamines Screen Not Detected (NotDetected) 04/27/21 22:26 U Methamphetamines Scrn Not Detected (NotDetected) 04/27/21 22:26 U Benzodiazepines Scrn Not Detected (NotDetected) 04/27/21 22:26 Urine Cocaine Screen Not Detected (NotDetected) 04/27/21 22:26 U Marijuana (THC) Screen Detected (NotDetected) H 04/27/21 22:26 Coronavirus (PCR) Not Detected (Not Detectd) 04/27/21 23:28 Assessment: psychosis unspecified. Rule out schizoaffective disorder. Rule out schizophrenia. TREATMENT PLAN/RECOMMENDATIONS: Medical Decision making: The patient presented with psychotic bizarre behavior. The patient at high risk to hurt self and others if he is not in the inpatient setting. The patient's psychiatric symptoms are not stable and he needs further management of psychiatric medications and further planning for discharge. Therefore, inpatient level of care is needed. Continue the patient inpatient for safety. Continue the patient under 15 minutes safe check for safety. Continue treatment of psychotic and mood symptoms. Psych education regarding his diagnosis, and treatment option. The patient will also be provided with individual therapy, group therapy, substance abuse counseling, gain insight, and coping skills. Consider medical consultation if any acute medical issue arise. Medications: Continue previous psychiatric medications including Prozac 20 mg daily for depression, Zyprexa 10 mg at bedtime for psychosis and mood stabilization, and melatonin 10 mg at bedtime for insomnia Labs: none Prognosis is guarded, contingent on patient compliance with his medications and has been followed up closely with outpatient mental health provider after discharge. The patient will be assessed on daily basis, and will be discharged back to his outpatient mental health provider upon stabilization. EXPECTED LENGTH OF STAY: 7 days. 04/28/21 12:25
[2021-04-28] MEDS: MELATONIN 5 MG TABLET PO SCH (22:00)
[2021-04-29] MEDS: NICOTINE 21MG/24HR PATCH TRANSDERM SCH (08:51)
[2021-04-29] MEDS: FLUoxetine HCL 20 MG CAP PO SCH (08:52)
--- NOTE | 2021-04-29 10:07 | P.PN ---
Progress Note - Text Progress Note Date: 04/29/21 Interval History: Patient was seen laying in his bed this morning with the sheets covering his f sabi. Patient did not respond to advertising writer when he was called and simply "his eyes looked up advertising writer and then continue to close his eyes. He did not respond to any verbal commands. According to RN today patient was very hesitant in taking his a.m. medications. patient has been compliant with his medications for the most part well on the unit. Patient refused to answer any questions with advertising writer carleen winter the evaluation. Mental Status Exam: General Appearance: Patient appears to be stated age, short in stature, is somnolent and uncooperative. Behavior: Patient is calmly laying in his bed without any agitated behavior. somnolent Speech: unable to assess Mood/Affect: unable to assess Suicidality/Homicidality: unable to assess Perceptions: unable to assess. Though content/process: unable to assess Memory and concentration: unable to assess Judgment and insight: poor Assessment psychosis unspecified Cannabis use disorder Nicotine dependence Plan: -Patient continues to meet criteria for inpatient psychiatric admission for symptom stabilization and safety. Patient has signed [adult voluntary form and was placed in patient's chart. -Medications: discontinued Prozac and Zyprexa due to patient's noncompliance. We will start paliperidone by mouth 3 mg daily at bedtime for psychosis and also started Zoloft on Thursday 50 mg daily for mood -When necessary Ativan and Haldol for agitation/aggression. -NRT - nicotine patch -SW on board for discharge planning. Encouraged the patient to participate in milieu. Currently awaiting deferral with trust and estates attorney and court date
--- NOTE | 2021-04-29 15:22 | P.HPMEDMHU ---
History of Present Illness H&P Date: 04/29/21 Chief Complaint: Brought in by police for psychotic behavior Patient is a 21-year-old male with past medical history of psychosis and is currently homeless who was brought in by police for psychotic and disorganized behavior. Patient was recently discharged from the inpatient psych unit one week ago. Patient currently states that he feels fine and he does not believe he needs to be in the hospital. Patient refused physical exam. Patient states that he does not take any medications. Review of Systems 10 ROS reviewed and are negative except as noted in HPI Past Medical History Past Medical History: No Reported History History of Any Multi-Drug Resistant Organisms: None Reported Past Surgical History: No Surgical Hx Reported Past Psychological History: Bipolar, Depression Smoking Status: Former smoker Past Alcohol Use History: None Reported Additional Past Alcohol Use History / Comment(s): pt states that he has not smoked for the past month. pt denies having used vape pen. Past Drug Use History: Marijuana Medications and Allergies Home Medications Medication Instructions Recorded Confirmed Type FLUoxetine HCL [PROzac] 20 mg PO DAILY 30 Days cap 04/24/21 04/28/21 Rx Melatonin 10 mg PO HS 30 Days tablet 04/24/21 04/28/21 Rx OLANZapine [ZyPREXA] 15 mg PO HS 30 Days tablet 04/24/21 04/28/21 Rx Allergies Allergy/AdvReac Type Severity Reaction Status Date / Time No Known Allergies Allergy Verified 04/28/21 07:53 Physical Exam Vitals: Vital Signs Temp Pulse Resp BP 04/29/21 09:26 97.8 F 04/29/21 07:29 97.7 F 52 L 16 101/55 Intake and Output 04/29/21 04/29/21 04/29/21 06:59 14:59 22:59 Other: Weight 60.8 kg Patient refused physical exam Cranial Nerve Examination - Cranial Nerves Cranial Nerve II- Optic: Intact (Patient refused all examination) Cranial Nerve III- Oculomotor: Intact Cranial Nerve IV- Trochlear: Intact Cranial Nerve V- Trigeminal: Intact Cranial Nerve - Abducens: Intact Cranial Nerve VII- Facial: Intact Cranial Nerve VIII- Auditory: Intact Cranial Nerve IX- Glossopharyngeal: Intact Cranial Nerve X- Vagus: Intact Cranial Nerve XI- Accessory: Intact Cranial Nerve XII- Hypoglossal: Intact Thrombosis Risk Factor Assmnt - Choose All That Apply Any of the Below Risk Factors Present?: No Other Risk Factors: No Other congenital or acquired thrombophilia - If yes, enter type in comment: No Thrombosis Risk Factor Assessment Level: Very Low Risk Assessment and Plan Assessment: -As per your psychiatry management Marijuana abuse -Patient counseled on cessation Thank you for allowing us to participate in the care of this patient. We will follow peripherally. Do not hesitate to contact us with questions.
[2021-04-29] MEDS ORDERED: PALIPERIDONE 3 MG TAB.ER.24 PO SCH (21:00)
[2021-04-29] MEDS: MELATONIN 5 MG TABLET PO SCH (21:11)
[2021-04-30] MEDS: NICOTINE 21MG/24HR PATCH TRANSDERM SCH (08:28)
--- NOTE | 2021-04-30 09:30 | P.PN ---
Progress Note - Text Progress Note Date: 04/30/21 Interval History: Patient was seen wandering the hallways this morning and was agreeable to speak to real estate underwriter in the office. Patient was fairly argumentative with real estate underwriter today and continues to demand discharge. He has very poor insight into his mental illness and his need for hospitalization and treatment. He continues to say "I don't have a mental illness out of need to be her in the hospital at me go". He claims that the hospital is violating his rights. He did not offer any overnight complaints and states that he slept fairly. He is denying any depression or anxiety today. He claims that he is taking his medications however states that when he leaves the hospital she does not want to take any more medications". Today patient is denying any auditory or visual hallucinations and denying any suicidal or homicidal ideations intent or plan. Mental Status Exam: General Appearance: Patient appears to be stated age, short in stature, is alert, well-dressed, uncooperative and argumentative. Behavior: Patient is sitting in the chair, no agitation. Uncooperative. Speech: Fluent and nonpressured. Mood/Affect: Patient claims that his mood is "fine" and affect is incongruent. Suicidality/Homicidality: Denies Perceptions: Denies any auditory or visual hallucinations. Though content/process: Preoccupied with discharge. Very poor insight into his condition. Argumentative and demanding. Memory and concentration: Alert and oriented 3, fair attention span. Judgment and insight: poor Assessment psychosis unspecified Cannabis use disorder Nicotine dependence Plan: -Patient continues to meet criteria for inpatient psychiatric admission for symptom stabilization and safety. Patient has not signed adult voluntary form and was placed in patient's chart. -Medications: Increased paliperidone by mouth 6 mg daily at bedtime for psychosis. start Zoloft on Thursday 50 mg daily for mood -When necessary Ativan and Haldol for agitation/aggression. -NRT - nicotine patch -SW on board for discharge planning. Encouraged the patient to participate in milieu. Demand for hearing was filed and waiting on court date.
[2021-04-30] MEDS: haloperidoL 5 MG TAB PO PRN (14:11)
[2021-04-30] MEDS: LORazepam 1 MG TAB PO PRN (14:11)
[2021-04-30] MEDS ORDERED: LORazepam 2 MG/ML INJ IM STA (14:20)
[2021-04-30] MEDS ORDERED: LORazepam 1 MG TAB PO STA (14:20)
[2021-04-30] MEDS: MELATONIN 5 MG TABLET PO SCH (20:48)
[2021-04-30] MEDS ORDERED: PALIPERIDONE 6 MG TAB.ER.24 PO SCH (21:00)
[2021-05-01] MEDS: SERTRALINE 50 MG TAB PO SCH (08:20)
[2021-05-01] MEDS: NICOTINE 21MG/24HR PATCH TRANSDERM SCH (08:20)
--- NOTE | 2021-05-01 09:15 | P.PN ---
Progress Note - Text Progress Note Date: 05/01/21 Interval History: Patient was seen wandering the hallways this morning and was up near the nurse's desk requesting his court papers and was agreeable to speak to ad writer in the office. Patient was very fixated today once again on being discharged and answered questions very superficially and quickly changes the subject back to his discharge. He continues to state that "I'm doing everything you want you guys are still violating my rights". He wanted to keep the door open in the office as he states that "I dont know what shenanigans you guys are doing and I want people to hear this". He was fairly paranoid today. He claims that he has been taking his medications and is denying any side effects. He claims that he is eating fairly and taking a shower. He continues to state that he wants to be with his family and continues to display very poor insight and judgment. He did not offer any overnight complaints and states that he slept fairly. He is denying any depression or anxiety today. Today patient is denying any auditory or visual hallucinations and denying any suicidal or homicidal ideations intent or plan. Mental Status Exam: General Appearance: Patient appears to be stated age, short in stature, is alert, well-dressed, uncooperative and argumentative. Behavior: Patient is sitting in the chair, no agitation. Demanding Speech: Fluent and nonpressured. Mood/Affect: Patient claims that his mood is "ok" and affect is incongruent and constricted. Suicidality/Homicidality: Denies Perceptions: Denies any auditory or visual hallucinations. Though content/process: Preoccupied with discharge. Very poor insight into his condition. Argumentative and demanding. Memory and concentration: Alert and oriented 3, fair attention span. Judgment and insight: poor Assessment psychosis unspecified Cannabis use disorder Nicotine dependence Plan: -Patient continues to meet criteria for inpatient psychiatric admission for symptom stabilization and safety. Patient has not signed adult voluntary form and was placed in patient's chart. -Medications: changed paliperidone by mouth 6 mg daily for psychosis. continue with Zoloft 50 mg daily for mood -When necessary Ativan and Haldol for agitation/aggression. -NRT - nicotine patch -SW on board for discharge planning. Encouraged the patient to participate in milieu. Patient has his demand court date set for 05/15/21
[2021-05-01] MEDS: LORazepam 1 MG TAB PO PRN (09:27)
[2021-05-01] MEDS: PALIPERIDONE 6 MG TAB.ER.24 PO SCH (09:27)
[2021-05-01] MEDS: MELATONIN 5 MG TABLET PO SCH (20:59)
[2021-05-02] MEDS: PALIPERIDONE 6 MG TAB.ER.24 PO SCH (08:22)
[2021-05-02] MEDS: NICOTINE 21MG/24HR PATCH TRANSDERM SCH (08:22)
[2021-05-02] MEDS: SERTRALINE 50 MG TAB PO SCH (08:22)
--- NOTE | 2021-05-02 12:33 | P.PN ---
Progress Note - Text Progress Note Date: 05/02/21 Interval History: Patient was seen wandering the hallways this morning and was up near the nurse's desk and was agreeable to seek to show card writer in the office today. Patient continues to be fairly preoccupied with discharged. He states that he is willing to sign "anything" and is agreeable to sign the waive and stip to agree to the treatment. He continues to have fairly poor insight and judgment however today he was more cooperative and less argumentative with show card writer. He was more directable during the conversation. He claims that his mood and anxiety have been gradually improving on the unit. He states that he has been dealing with depression for several years now. He claims that he is able to sleep fairly last night however did not have appetite this morning. Today patient is denying any auditory or visual hallucinations and denying any suicidal or homicidal ideations intent or plan. Mental Status Exam: General Appearance: Patient appears to be stated age, short in stature, is alert, well-dressed, more cooperative today. Behavior: Patient is sitting in the chair, no agitation. less Demanding Speech: Fluent and nonpressured. Mood/Affect: Patient claims that his mood is "fine" and affect is incongruent and constricted. Suicidality/Homicidality: Denies Perceptions: Denies any auditory or visual hallucinations. Though content/process: Preoccupied with discharge. Very poor insight into his condition. Calmer today. Memory and concentration: Alert and oriented 3, fair attention span. Judgment and insight: poor, improving mildly Assessment psychosis unspecified Cannabis use disorder Nicotine dependence Plan: -Patient continues to meet criteria for inpatient psychiatric admission for symptom stabilization and safety. Patient has not signed adult voluntary form and was placed in patient's chart. -Medications: Continue with paliperidone by mouth 6 mg daily for psychosis. Will adjust invega accordingly and likely transition patient onto Invega sustenna AKERS to ensure compliance. continue with Zoloft 50 mg daily for mood -When necessary Ativan and Haldol for agitation/aggression. -NRT - nicotine patch -SW on board for discharge planning. Encouraged the patient to participate in milieu. Patient has his demand court date set for 05/15/21. Patient was requestin g to sign the waive and stip with his claim attorney.
[2021-05-02] MEDS: MELATONIN 5 MG TABLET PO SCH (21:26)
[2021-05-03] MEDS: PALIPERIDONE 6 MG TAB.ER.24 PO SCH (08:38)
[2021-05-03] MEDS: SERTRALINE 50 MG TAB PO SCH (08:38)
[2021-05-03] MEDS: NICOTINE 21MG/24HR PATCH TRANSDERM SCH (08:42)
[2021-05-03] MEDS: LORazepam 1 MG TAB PO PRN ×2 (11:22→16:47)
[2021-05-03] MEDS ORDERED: PALIPERIDONE IM 234 MG/1.5 ML SYG IM STA (12:08)
[2021-05-03] MEDS: haloperidoL 5 MG TAB PO PRN (16:47)
[2021-05-03] MEDS: HALOPERIDOL LACTATE 5 MG/ML 1 ML VIAL IM PRN (16:59)
[2021-05-03] MEDS: LORazepam 2 MG/ML INJ IM PRN (16:59)
--- NOTE | 2021-05-03 18:38 | PN ---
PROGRESS NOTE DATE OF SERVICE: 05/03/2021 CHIEF COMPLAINT: The patient was confused, disorganized, and was hallucinating. He was just discharged on 04/24/2021 from this unit. INTERVAL HISTORY: The patient has been doing fair. He continues with ups and downs in his function as well as thought process. Yesterday he was out in the day area a fair amount. He will make random comments. It is not clear he really interacts to any significant degree with others. He did attend groups. Sometimes he seems more organized in his thoughts and other times not. He often will approach staff mainly hoping to be discharged. He had his court hearing and is now under a treatment order. He slept fairly well last night. Today he has been up. He continues to do about the same. He wanders about. He will often approach staff where he will bring up a subject and then can perseverate on that. One example was around 12:30 he kept seeking out staff saying he was hungry even though he knew lunch was ready at 1:00. He got into an episode this morning where he started swearing and became verbally aggressive towards others. He said he wanted something to calm down though when offered a p.r.n. he declined it. He requested a snack and then declined the snack as well. Eventually he seemed to be able to get back to his baseline where he would walk around. He would have a slight smile on his face. He continues to seem quite confused and disorganized in thoughts. He tolerates his psychotropic medications. MENTAL STATUS: Patient was a little restless. He responded to questions in a soft, at times almost airy voice. He generally would give answers that were somewhat tangential. He perseverated on discharge as well as needing lunch. He had a blunted affect. His mood was down. He seemed moderately distressed. He continues to show indications of paranoid delusions and does respond to apparent internal stimuli night. He voiced no thoughts of harm to self. He did make an effort to answer formal cognitive questions though was oriented to circumstances and surroundings. ASSESSMENT: I will continue the current diagnosis and treatment plan. The patient is currently on Invega 6 mg oral now that he has the treatment order and within his history it is noted that he does not comply with his medications when outside the hospital. I will initiate Invega Sustenna 234 mg IM. I reviewed issues with the patient in regards to management of long-acting injectables. We discussed discharge planning. The patient understands that we likely need several more days to see how he does with the IM injectable as well as to see if he is responding to his medications. We may need to look towards going up on his oral Invega. He will be due for a followup injection of Invega Sustenna 156 mg IM next Thursday. We will focus on stabilization and discharge planning. MMAPRYLL / IJN: [id number] /
[2021-05-03] MEDS: MELATONIN 5 MG TABLET PO SCH (21:44)
[2021-05-04] MEDS: NICOTINE 21MG/24HR PATCH TRANSDERM SCH (09:26)
[2021-05-04] MEDS: SERTRALINE 50 MG TAB PO SCH (09:26)
[2021-05-04] MEDS: PALIPERIDONE 6 MG TAB.ER.24 PO SCH (09:26)
--- NOTE | 2021-05-04 12:50 | P.PN ---
Progress Note - Text Progress Note Date: 05/04/21 Interval History: Patient was seen seen in his room and was directable and agreeable to speak with screen writer . He is very preoccupied with his discharge. He was admitted about one week ago with psychosis. He told me he can be his own doctor and that he should be released. He stated that he does not need a doctor. He is not sleeping well.. At this time patient denies any suicidal or homical ideations, intent or plan. Patient denies any auditory, visual hallucinations and denies any paranoia or delusions. Patient denies any side effects from the medications and has been compliant with meds. Mental Status Exam: General Appearance: Patient appears to be stated age and is not cooperative. Behavior: Patient is showing agitation and his behavior. Speech: Patient's speech is fluent and pressured. Mood/Affect: Mood is angry and affect is labile. Suicidality/Homicidality: Patient denies having any suicidal or homicidal ideation intent or plan. Perceptions: Patient denies any visual hallucinations and denies any auditory hallucinations Though content/process: Patient does show evidence of disorder of thought content but not thought process. Memory and concentration: His concentration is poor and her memory could not be tested Judgment and insight: He has no insight into his problems. Assessment: This patient continues to show symptoms of psychosis and is out of touch with reality. Plan: -Patient continues to meet criteria for inpatient psychiatric admission for symptom stabilization and safety. -Medications: Continue medication as such -When necessary Ativan and Haldol for agitation/aggression. -SW on board for discharge planning. Encouraged the patient to participate in milieu.
[2021-05-04] MEDS: MELATONIN 5 MG TABLET PO SCH (21:35)
[2021-05-05] MEDS: SERTRALINE 50 MG TAB PO SCH (09:32)
[2021-05-05] MEDS: PALIPERIDONE 6 MG TAB.ER.24 PO SCH (09:32)
[2021-05-05] MEDS: NICOTINE 21MG/24HR PATCH TRANSDERM SCH (09:34)
--- NOTE | 2021-05-05 13:08 | P.PN ---
Progress Note - Text Progress Note Date: 05/05/21 Interval History: Patient was seen in the room and was directable and agreeable to speak with verse writer. He continues to be preoccupied with his discharge and does not want to talk about anything else. He has been observed to be talking to himself.. At this time patient denies any suicidal or homical ideations, intent or plan. Patient denies any side effects from the medications and has been compliant with meds. Mental Status Exam: General Appearance: Patient appears to be stated age Behavior: Patient is calm without any agitated behavior. Speech: Patient's speech is fluent and pressured. Mood/Affect: Mood is improving mildly, affect is labile. Suicidality/Homicidality: Patient denies having any suicidal or homicidal ideation intent or plan. Perceptions: Patient appears to be responding to some unknown internal stimuli Though content/process: This patient is a paranoid] Memory and concentration: This patient is not able to concentrate on task Judgment and insight: His insight is poor and judgment is impaired Assessment This patient was admitted to Hospital with the symptoms of psychosis. He is taking his medication and psychosis is less than before. He has no insight into his problems Plan: -Patient continues to meet criteria for inpatient psychiatric admission for symptom stabilization and safety. -Medications: Continue medication as before -When necessary Ativan and Haldol for agitation/aggression. -SW on board for discharge planning. Encouraged the patient to participate in milieu.
[2021-05-05 15:43] LABS: Appearance,Urine Clear (Clear); Bilirubin,Urine Negative (Negative); Blood,Urine Negative (Negative); Color,Urine Light Yellow; Glucose,Urine (UA) Negative (Negative); Ketones,Urine Negative (Negative); Leukocyte Esterase,Urine Trace (Negative); Mucus,Urine Rare /hpf; Nitrite,Urine Negative (Negative); PH, Urine 7.5 (5.0-8.0); Protein,Urine Negative (Negative); RBC,Urine <1 /hpf (0-5); Specific Gravity,Urine 1.009 (1.001-1.035); Squamous Epithelial Cell,Urine <1 /hpf (0-4); Urobilinogen,Urine <2.0 mg/dL (<2.0); WBC,Urine 2 /hpf (0-5)
[2021-05-05] MEDS: MELATONIN 5 MG TABLET PO SCH (20:56)
[2021-05-06] MEDS: SERTRALINE 50 MG TAB PO SCH ×2 (09:12→12:07)
[2021-05-06] MEDS: PALIPERIDONE 6 MG TAB.ER.24 PO SCH ×2 (09:13→12:07)
[2021-05-06] MEDS: NICOTINE 21MG/24HR PATCH TRANSDERM SCH (09:13)
--- NOTE | 2021-05-06 09:30 | P.PN ---
Progress Note - Text Progress Note Date: 05/06/21 Interval History: Patient was seen sitting in the lounge this morning and was agreeable to seek to technical writer and editor in the office today. Patient continues to be fairly preoccupied with discharged. He claims that he had no issues over the weekend. He claims that he misses his "baby girl". He continues to have very poor insight into his condition and also into the court process. Sheet Metal Foreman explained to patient once again about the court hearing and also the treatment order and patient continues to claim that he does not need medications and refused to take it this morning. He states that he has been going to groups however was fairly concrete and did not share much about what he is learning. He states that his mood is "okay" and is denying any anxiety today. States that he was able sleep 7 hours last night. He is less argumentative with technical writer and editor. He was more directable during the conversation. Today patient is denying any auditory or visual hallucinations and denying any suicidal or homicidal ideations intent or plan. Mental Status Exam: General Appearance: Patient appears to be stated age, short in stature, is alert, well-dressed, more cooperative today. Behavior: Patient is sitting in the chair, no agitation. less Demanding Speech: Fluent and nonpressured. Mood/Affect: Patient claims that his mood is "ok" and affect is incongruent and constricted. Suicidality/Homicidality: Denies Perceptions: Denies any auditory or visual hallucinations. Though content/process: Preoccupied with discharge. Very poor insight into his condition. Calmer today. Memory and concentration: Alert and oriented 3, fair attention span. Judgment and insight: poor, improving mildly Assessment psychosis unspecified Cannabis use disorder Nicotine dependence Plan: -Patient continues to meet criteria for inpatient psychiatric admission for symptom stabilization and safety. Patient has not signed adult voluntary form and was placed in patient's chart. -Medications: Continue with paliperidone by mouth 6 mg daily for psychosis. Will adjust invega accordingly and likely transition patient onto Invega sustenna AKERS to ensure compliance. continue with Zoloft 50 mg daily for mood. Patient refused his meds today. -When necessary Ativan and Haldol for agitation/aggression. -NRT - nicotine patch -SW on board for discharge planning. Encouraged the patient to participate in milieu. Patient has his demand court date set for 05/15/21.
[2021-05-06] MEDS ORDERED: flUPHENAZine 2.5 MG/ML (MDV) 10 ML VIAL IM PRN (11:11)
[2021-05-06] MEDS: MELATONIN 5 MG TABLET PO SCH (21:00)
[2021-05-07] MEDS: SERTRALINE 50 MG TAB PO SCH (08:10)
[2021-05-07] MEDS: NICOTINE 21MG/24HR PATCH TRANSDERM SCH (08:10)
[2021-05-07] MEDS ORDERED: PALIPERIDONE 3 MG TAB.ER.24 PO SCH (09:00)
--- NOTE | 2021-05-07 09:55 | P.PN ---
Progress Note - Text Progress Note Date: 05/07/21 Interval History: Patient was seen sitting in the [facility] attending group this morning and was ag reeable to seek to teletypewriter installer in the office today. Patient was more cooperative and calmer with teletypewriter installer during interview today. He was not as persistent on discharge today and is argumentative and irritable. He claims that he spoke with his girlfriend yesterday and claims that he misses her and that she misses him as well. Patient's insight and judgment have been gradually improving with the current medications. He states that he is going to group and mainly listening to other people speak and participate. He states that his mood is "okay" and is denying any anxiety today. States that he was able sleep 6-7 hours last night. He was more directable during the conversation. Today patient is denying any auditory or visual hallucinations and denying any suicidal or homicidal ideations intent or plan. Mental Status Exam: General Appearance: Patient appears to be stated age, short in stature, is alert, well-dressed, more cooperative today. Behavior: Patient is sitting in the chair, no agitation. less Demanding Speech: Fluent and nonpressured. Mood/Affect: Patient claims that his mood is "fine" and affect is incongruent and constricted. Suicidality/Homicidality: Denies Perceptions: Denies any auditory or visual hallucinations. Though content/process: more gola oriented. Poor insight into his condition, improving mildly. Calmer today. Memory and concentration: Alert and oriented 3, fair attention span. Judgment and insight: poor, improving mildly Assessment psychosis unspecified Cannabis use disorder Nicotine dependence Plan: -Patient continues to meet criteria for inpatient psychiatric admission for symptom stabilization and safety. Patient has not signed adult voluntary form and was placed in patient's chart. -Medications: Continue with paliperidone by mouth 3 mg daily for psychosis. Patient received Invega sustenna 234mg IM loading dose on 05/03 and will be due for his 156 mg IM dose on 05/09 and maintenance dose of 117mg IM next on 05/30/21. continue with Zoloft 50 mg daily for mood. -When necessary Ativan and Haldol for agitation/aggression. -NRT - nicotine patch -SW on board for discharge planning. Encouraged the patient to participate in milieu. Patient has signed a waive and stip and agreeable to court order on 05/02. Likely discharge after second dose on thursday.
[2021-05-07] MEDS: MELATONIN 5 MG TABLET PO SCH (21:34)
[2021-05-08] MEDS ORDERED: PALIPERIDONE 3 MG TAB.ER.24 PO STA (08:39)
--- NOTE | 2021-05-08 08:45 | P.PN ---
Progress Note - Text Progress Note Date: 05/08/21 Interval History: Patient was seen this morning and was agreeable to seek to narrative writer in the office today. Her to be fairly frustrated today and stated multiple times "I'm tired of people messing with my head, I'm sick and tired of taking medications". She was persistent once again today about being discharged and wanting to see his "girl". He states that he is doing "fine" and has an incongruent affect. He denied any problems asleep last night. He did endorse some paranoia towards other people on the unit today and was difficult to redirect today due to his frustration and irritability. He continues to have poor insight and judgment when speaking about his medications and treatment. Today patient is denying any auditory or visual hallucinations and denying any suicidal or homicidal ideations intent or plan. Mental Status Exam: General Appearance: Patient appears to be stated age, short in stature, is alert, well-dressed, attempts to be cooperative Behavior: Patient is sitting in the chair, no agitation. Demanding. Speech: Fluent and nonpressured. Mood/Affect: Patient claims that his mood is "ok" and affect is incongruent and constricted. Suicidality/Homicidality: Denies Perceptions: Denies any auditory or visual hallucinations. Though content/process: more goal oriented. Poor insight into his condition. Focused on discharge. Memory and concentration: Alert and oriented 3, fair attention span. Judgment and insight: poor Assessment psychosis unspecified Cannabis use disorder Nicotine dependence Plan: -Patient continues to meet criteria for inpatient psychiatric admission for symptom stabilization and safety. Patient has not signed adult voluntary form and was placed in patient's chart. -Medications: Increased paliperidone by mouth 6 mg daily for psychosis. Patient received Invega sustenna 234mg IM loading dose on 05/03 and will be due for his 156 mg IM dose on 05/09 and maintenance dose of 156mg IM next on 05/30/21. continue with Zoloft 50 mg daily for mood. -When necessary Ativan and Haldol for agitation/aggression. -NRT - nicotine patch -SW on board for discharge planning. Encouraged the patient to participate in milieu. Patient has signed a waive and stip and agreeable to court order on 05/02. Likely discharge after second dose on thursday.
[2021-05-08] MEDS: PALIPERIDONE 6 MG TAB.ER.24 PO SCH (09:51)
[2021-05-08] MEDS: NICOTINE 21MG/24HR PATCH TRANSDERM SCH (09:51)
[2021-05-08] MEDS: SERTRALINE 50 MG TAB PO SCH (09:51)
[2021-05-08 12:04] VITALS: BMI 24.8
[2021-05-08] MEDS: MELATONIN 5 MG TABLET PO SCH (22:14)
[2021-05-09 07:15] VITALS: RESP 18
[2021-05-09] MEDS: NICOTINE 21MG/24HR PATCH TRANSDERM SCH (09:29)
[2021-05-09] MEDS: PALIPERIDONE 6 MG TAB.ER.24 PO SCH (09:30)
[2021-05-09] MEDS: SERTRALINE 50 MG TAB PO SCH (09:30)
[2021-05-09] MEDS ORDERED: PALIPERIDONE IM 156 MG/ML SYG IM STA (11:29)
--- NOTE | 2021-05-09 12:29 | P.PN ---
Progress Note - Text Progress Note Date: 05/09/21 Interval History: Patient was seen this morning and was agreeable to speek to song writer in the office today. Today patient once again asked about discharge and the different steps that he needs to accomplish to get discharged from the hospital. He states that he slept fairly last night and is denying any overnight problems. She continues to have chronically poor insight into his condiiton. First he was surprised that he was getting get a second injection however quickly became agreeable to it once again. He believes that he is under voluntary admission. He continues to state that he misses his "girl" and spoke about her briefly. He states that he's been talking with her over the phone. He states that he is doing "fine" and has an incongruent affect. He denied any problems asleep last night. He is denying any paranoia today and not endorsing any delusions. Today patient is denying any auditory or visual hallucinations and denying any suicidal or homicidal ideations intent or plan. Mental Status Exam: General Appearance: Patient appears to be stated age, short in stature, is alert, well-dressed, attempts to be cooperative Behavior: Patient is sitting in the chair, no agitation. Demanding. Speech: Fluent and nonpressured. Mood/Affect: Patient claims that his mood is "fine" and affect is incongruent and constricted. Suicidality/Homicidality: Denies Perceptions: Denies any auditory or visual hallucinations. Though content/process: more goal oriented. Poor insight into his condition. Focused on discharge. Memory and concentration: Alert and oriented 3, fair attention span. Judgment and insight: Chronically poor Assessment psychosis unspecified Cannabis use disorder Nicotine dependence Plan: -Patient continues to meet criteria for inpatient psychiatric admission for symptom stabilization and safety. Patient has not signed adult voluntary form and was placed in patient's chart. -Medications: Continue with paliperidone by mouth 6 mg daily for psychosis. Patient received Invega sustenna 234mg IM loading dose on 05/03 and will be due for his 156 mg IM dose on 05/09 and maintenance dose of 156mg IM next on 05/30/21. continue with Zoloft 50 mg daily for mood. -When necessary Ativan and Haldol for agitation/aggression. -NRT - nicotine patch -SW on board for discharge planning. Encouraged the patient to participate in milieu. Patient has signed a waive and stip and agreeable to court order on 05/02. Likely discharge after second dose on thursday.
[2021-05-10] MEDS: MELATONIN 5 MG TABLET PO SCH ×2 (00:53→21:29)
[2021-05-10] MEDS: SERTRALINE 50 MG TAB PO SCH (09:23)
[2021-05-10] MEDS: NICOTINE 21MG/24HR PATCH TRANSDERM SCH (09:23)
[2021-05-10] MEDS: PALIPERIDONE 6 MG TAB.ER.24 PO SCH (09:23)
--- NOTE | 2021-05-10 11:36 | P.PN ---
Progress Note - Text Progress Note Date: 05/10/21 Interval History: Patient was seen this morning and was agreeable to speek to financial underwriter in the office today. Patient was fairly persistent once again with financial underwriter to be discharged. He was only wanting to speak about discharge and "holding my end of the bargain". He continues to believe that he does not have a mental illness and does not need medications. He continues to have poor frustration tolerance and lack of insight. He is denying any overnight complaints and states that he slept well. He claims that he has been taking his medications. Patient apparently was agitated and paranoid/bizarre with the nurse yesterday and was not directable. During team meeting, staff members claims that patient continues to endorse paranoia and acting bizarre while on the unit at times and has been inappropriate. He states that he is doing "fine" and has an incongruent affect. He denied any problems asleep last night. He is denying any paranoia today and not endorsing any delusions. Today patient is denying any auditory or visual hallucinations and denying any suicidal or homicidal ideations intent or plan. Paper Baling Machine Operator spoke with Velma, pts girlfriend at [phone] claims that for the past few months patient has been more bizarre and has been fairly fixated on seeing her. She states that whenever he is ready to be discharged that she can pick him up and drive him to his mother's house in [place]. Paper Baling Machine Operator also spoke with patient's mother Yulisa over the phone at [phone] who states that she spoke with patient on several occasions during his hospitalization. She states that he has made bizarre statements to her over the phone and continues to claim that he is not going to take his medications when he leaves. She claims that he does have a long history of mental illness and it runs in the family. She states that he has received care from numerous psychiatric clinics in [place] however he went into foster care and she lost touch with him and what was happening with his mental health until recently. She claims that she does not feel comfortable taking patient at this time due to his mental state however claims that she will take him and once he is stabilized. Mental Status Exam: General Appearance: Patient appears to be stated age, short in stature, is alert, well-dressed, argumentative today and confrontational Behavior: Patient is sitting in the chair, no agitation. Demanding. Speech: Fluent and nonpressured. Mood/Affect: Patient claims that his mood is "fine" and affect is incongruent and constricted. Suicidality/Homicidality: Denies Perceptions: Denies any auditory or visual hallucinations. Though content/process: Bizarre at times. Paranoia. Poor insight into his condition. Focused on discharge. Memory and concentration: Alert and oriented 3, fair attention span. Judgment and insight: Chronically poor Assessment psychosis unspecified Cannabis use disorder Nicotine dependence Plan: -Patient continues to meet criteria for inpatient psychiatric admission for symptom stabilization and safety. Patient has not signed adult voluntary form and was placed in patient's chart. -Medications: d/c invega po as pt received Invega sustenna 234mg IM loading dose on 05/03 and 156 mg IM dose on 05/09 and maintenance dose of 156mg IM next on 05/30/21. continue with Zoloft 50 mg daily for mood. -When necessary Ativan and Haldol for agitation/aggression. -NRT - nicotine patch -SW on board for discharge planning. Encouraged the patient to participate in [facility]. Patient has signed a waive and stip and agreeable to court order on 05/02.
[2021-05-11] MEDS: SERTRALINE 50 MG TAB PO SCH (08:26)
[2021-05-11] MEDS: LORazepam 1 MG TAB PO PRN (08:27)
[2021-05-11] MEDS: NICOTINE 21MG/24HR PATCH TRANSDERM SCH (08:48)
[2021-05-11] MEDS ORDERED: PALIPERIDONE 3 MG TAB.ER.24 PO ONE (09:00)
[2021-05-11] MEDS ORDERED: PALIPERIDONE 3 MG TAB.ER.24 PO SCH (09:00)
[2021-05-11] MEDS: MELATONIN 5 MG TABLET PO SCH (21:18)
--- NOTE | 2021-05-11 21:34 | P.PN ---
Progress Note - Text Progress Note Date: 05/11/21 Subjective: Patient was seen today as a cross coverage for Dr. Pearce. The patient was evaluated, chart reviewed, case discussed with the treatment team. Patient reports fair sleep last night, and appetite was reported as "great". Patient has been going to groups and other unit activities. The patient is compliant with his medications and denies any adverse reactions. Pt. reports feeling stable emotionally and denies any active symptoms of depression, anxiety, or severe mood swings. Denies any manic or psychotic symptoms. Objective: Vitals has been reviewed. Mental status examination; Appearance: The patient appears stated age, adequately groomed and dressed, no specific features. Gait/posture: Normal gait, Normal arm swinging: No abnormal movements. Attitude and behavior: engaged, cooperative, eye contact. Motor activity: Normal psychomotor activity Speech: Normal rate, tone. Mood: "fine" Affect: Constricted Thought form: goal-directed, linear, coherent. Thought content: Non-delusional, denies suicidal thoughts, denies homicidal thoughts, denies intentions or plans. Perception: Denies any auditory or visual hallucinations Attention: No impairment. Orientation: Patient patient was fully oriented to time place person and situation. Insight: Patient has fair insight about his psychiatric disorder. Judgment: Patient has fair judgment about his psychiatric treatment. Assessment: psychosis unspecified Cannabis use disorder Nicotine dependence Plan: Continue inpatient level of care due to need for further monitoring and discharge planning Precautions: Continue 15 minutes check for safety. Consider medical consultation if any acute medical issues arise. Provide the patient individual, group therapy, substance use disorder counseling to give better insight and learn coping skills. Medications: Zoloft for depression and anxiety, Melatonin for insomnia, and NRT Pt received Invega Sustenna loading dose 234 mg im and maintenance dose of 156 mg Continue as needed medications for psychiatric emergencies including psychosis, agitation and anxiety. Continue non-psychiatric medications for medical conditions as recommended by the medical team. Discharge patient to OUTPATIENT services upon a stabilization
[2021-05-12 06:48] VITALS: BP 104/51; PULSE 55; TEMP 97.7
[2021-05-12] MEDS: SERTRALINE 50 MG TAB PO SCH (08:27)
[2021-05-12] MEDS: NICOTINE 21MG/24HR PATCH TRANSDERM SCH (08:27)
[2021-05-12] MEDS: MELATONIN 5 MG TABLET PO SCH (21:42)
--- NOTE | 2021-05-13 00:39 | P.PN ---
Progress Note - Text Progress Note Date: 05/12/21 Subjective: Patient was seen today as a cross coverage for Dr. Pearce. The patient was evaluated, chart reviewed, case discussed with the treatment team. Patient reports feeling stable emotionally and he denies any active symptoms of depression, anxiety, or mood instability. He denies any suicidal or homicidal ideation. He denies any hallucinations, paranoid ideation, or delusions. No manic symptoms reported or noticed. Patient continues to have fair sleep and appetite, attends groups and other unit activities, and takes his medications as prescribed with no side effects reported. He requested discharge and was educated to discuss discharge planning with primary team. Objective: Vitals has been reviewed. Mental status examination; Appearance: The patient appears stated age, adequately groomed and dressed, no specific features. Gait/posture: Normal gait, Normal arm swinging: No abnormal movements. Attitude and behavior: engaged, cooperative, eye contact. Motor activity: Normal psychomotor activity Speech: Normal rate, tone. Mood: "fine" Affect: Constricted Thought form: goal-directed, linear, coherent. Thought content: Non-delusional, denies suicidal thoughts, denies homicidal thoughts, denies intentions or plans. Perception: Denies any auditory or visual hallucinations Attention: No impairment. Orientation: Patient patient was fully oriented to time place person and situation. Insight: Patient has fair insight about his psychiatric disorder. Judgment: Patient has fair judgment about his psychiatric treatment. Assessment: psychosis unspecified Cannabis use disorder Nicotine dependence Plan: Continue inpatient level of care due to need for further monitoring and discharge planning Precautions: Continue 15 minutes check for safety. Consider medical consultation if any acute medical issues arise. Provide the patient individual, group therapy, substance use disorder counseling to give better insight and learn coping skills. Medications: Zoloft for depression and anxiety, Melatonin for insomnia, and NRT Pt received Invega Sustenna loading dose 234 mg im and maintenance dose of 156 mg Continue as needed medications for psychiatric emergencies including psychosis, agitation and anxiety. Continue non-psychiatric medications for medical conditions as recommended by the medical team. Discharge patient to OUTPATIENT services upon a stabilization
[2021-05-13] MEDS: MELATONIN 5 MG TABLET PO SCH (01:24)
[2021-05-13] MEDS: SERTRALINE 50 MG TAB PO SCH (09:57)
[2021-05-13] MEDS: NICOTINE 21MG/24HR PATCH TRANSDERM SCH (09:58)
--- NOTE | 2021-05-13 11:34 | P.DS ---
Providers Date of admission: 04/27/21 23:55 Expected date of discharge: 05/13/21 Attending physician: Filiberto Pearce MD Consults: 04/28/21 00:21 Consult Physician Routine Consulting Provider: Rajan Physician Consult Reason/Comments: h and p Do you want consulting provider notified?: Yes, Notify in am Primary care physician: Stated None - Discharge Diagnosis(es) (1) Unspecified psychosis Current Visit: Yes Status: Acute Priority: High (2) Cannabis use disorder, mild, abuse Current Visit: Yes Status: Acute Priority: High (3) Nicotine dependence Current Visit: Yes Status: Acute Priority: Low Hospital Course: Admission HPI: Admission note was completed by Dr. Huerta "Alexx Castaneda is a 21-year-old single male, who is currently homeless, unemployed, has psychiatric history of psychosis, and no reported medical history who was discharged from this unit last week, and brought back yesterday by the police because of psychotic and disorganized behavior. The patient has been admitted to our inpatient psychiatric services after been transferred from ED. The patient has been admitted on involuntary basis to our service. Patient presented confused, disorganized and not able to give any specific complaint but states "I shouldn't be here" the patient was recently discharged from this unit on 04/24/21 with discharge diagnosis of psychosis and was prescribed on discharge Prozac 20 mg daily, Zyprexa 15 mg at bedtime, and melatonin at bedtime. The patient was brought back to the hospital by the police yesterday after apparently his aunt called them. As per petition paper by the police lieutenant precinct; the patient presented confused, disoriented, and speaking statement didn't make sense such as "he couldn't be himself if he was facing the wall". According to his aunt "Vandana" the patient was not taking his medications and was hallucinating. Patient was saying people on the TV are out to get him and he was hearing erratic conversation on the TV. Also, she added patient was always acting very agitated. After the patient brought to the hospital and admitted to the unit, he became very agitated at the unit,refused admission, resisted security and was trying to get out of the wheelchair and probably elope. According to the nursing note, patient continued to be agitated was bizarre thoughts. Patient begun to take threatening position with clenching his fists and ready to fight. He refused to cooperate, and started to flight staff. More supportive the staff called to the unit and the patient was medicated with Haldol 5 mg IM and Ativan 1 mg and the patient was placed in 4-point restraints for safety. Based on evaluation today,the patient was calm but not cooperative, very guarded, paranoid, and internally preoccupied. The patient was not able to give informative history, or explain why he was brought back to the hospital. He was talking about try to get his phone from his aunt, and he should not be here. Patient was talking bizarre and nonsensical that when he asking about paranoid thoughts or any delusions, answered "I'm feeling alone", "I have abandonment issue". Patient reports that he doesn't like to be around people but he didn't answer questions about delusions, hallucinations, or paranoid thoughts. He was asking me to write down that his thoughts are in peace. Didn't answer question if he was taking medications are not after discharge, but apparently he was not taking medications. Patient refused to sign consent to take his psychiatric medications during this hospitalization after he read the consent for more than 10 minutes. Patient continued to state "I shouldn't be here", but he didn't show any aggressive or agitated behavior today. Patient didn't answer anymore questions, and he left. Generally, the patient presented disorganized, with very poor eye contact and at times confused." Hospital course: Upon admission to the unit patient was initially was psychotic and argumentative. Patient was however admitted on a deferral involuntarily and a court heaering was scheduled due to non compliance of meds and rehsopitalization. Patient ended up singing a waive and stip and was agreeable to the court order on 05/02 with his commonwealth attorney. Patient got along well with other patients on the unit and followed unit protocol. Patient was compliant with the medications and denied any side effects throughout hospital course. Patient was started on paliperidone by mouth and was transitioned onto Invega Sustenna 234 mg IM loading dose which was given on 05/03 and patient received his second dose on 05/09 of 156 mg IM and will be due for his next maintenance dose of 156 mg IM on . Patient was also placed on Zoloft 50 mg daily for mood and melatonin 10 mg daily at bedtime for insomnia. Patient spoke of his stressors and engaged in therapy both group and individual. Patient was also seen by medical team for history and physical exam. Throughout the course of the hospitalization patient gradually improved with regards to mood, anxiety, psychosis, sleep and had improvement in his insight and judgment despite it being relatively chronically poor. On the day of discharge patient denied any suicidal or homicidal ideations intent or plan denied any auditory or visual hallucinations. Patient endorsed wanting to live for his health and family. The patient denied any access to guns or weapons. Patient denied any paranoia and did not endorse any delusions. Patient does have a significant history of substance abuse and was counseled on abstaining from all substances including alcohol and marijuana. Patient elected to do outpatient substance use treatment program through [facility]. Patient was also counseled on the medications and need for regular compliance and was encouraged to follow-up with their outpatient appointment for mental health and also for primary care. Prior to discharge a family meeting will be arranged by social services specialist to answer any questions and ensure safety upon discharge. Patient will be getting picked up by his girlfriend and taken to his mother in [place] where he will be staying. Mental status exam: General Appearance: Patient appears to be short in stature, stated age is alert, directable, and cooperative. Patient is in no acute distress and has improved hygiene and grooming Behavior: Patient is calmly seated without any agitated behavior. Speech: Patient's speech is fluent and nonpressured. Mood/Affect: Patient reports their mood is "better", affect is congruent and constricted Suicidality/Homicidality: Patient denies having any suicidal or homicidal ideation intent or plan. Perceptions: Patient denies any auditory or visual hallucinations. Though content/process: There is no evidence of any delusional thought content and thought process is linear and goal-directed. [place] Memory and concentration: AOX3, grossly intact for the purposes of this session. Can spell "WORLD" backwards correctly. Judgment and insight: chronically poor, however has improved with guarded prognosis Impression: Psychosis unspecified, likely schizophrenia Cannabis use disorder Nicotine dependence Plan: -Continue with discharge today as patient has improved and stabilized psychiatrically and is not currently an imminent threat to himself and/or others. Patient will remain at chronically elevated risk for harm to self and/or others due to his impulsivity and substance abuse. -Continue medications: Patient had received 234 mg IM loading dose of Invega Sustenna on 05/03 and also given 156 mg IM dose on 05/09 and maintenance dose of 156 mg IM will be due on . Continue with Zoloft 50 mg daily for mood and melatonin 10 mg daily at bedtime for insomnia. -Patient was counseled on the need for medication compliance and appropriate follow-up at mental health and also primary care for medical issues. Patient verbalized understanding and agreed. -Social work to arrange for and conduct family meeting to ensure safety upon discharge and answer any questions/concerns. Social work also to arrange for patients follow up appointments with [facility] for psychiatric care along with follow up with primary care provider. -Patient counseled on abstaining from recreational drugs and marijuana and alcohol. Was informed/educated on the adverse effects on their physical and mental health. Patient verbally agreed and understood. -Patient was instructed to return to the hospital or seek immediate medical care if their psychiatric or medical symptoms do worsen or reoccur. Allergies Allergy/AdvReac Type Severity Reaction Status Date / Time No Known Allergies Allergy Verified 04/28/21 07:53 Laboratory Results Urine Color Light Yellow 05/05/21 15:30 Urine Appearance Clear (Clear) 05/05/21 15:30 Urine pH 7.5 (5.0-8.0) 05/05/21 15:30 Ur Specific [place] 1.009 (1.001-1.035) 05/05/21 15:30 Urine Protein Negative (Negative) 05/05/21 15:30 Urine Glucose (UA) Negative (Negative) 05/05/21 15:30 Urine Ketones Negative (Negative) 05/05/21 15:30 Urine Blood Negative (Negative) 05/05/21 15:30 Urine Nitrite Negative (Negative) 05/05/21 15:30 Urine Bilirubin Negative (Negative) 05/05/21 15:30 Urine Urobilinogen <2.0 mg/dL (<2.0) 05/05/21 15:30 Ur Leukocyte Esterase Trace (Negative) H 05/05/21 15:30 Urine RBC <1 /hpf (0-5) 05/05/21 15:30 Urine WBC 2 /hpf (0-5) 05/05/21 15:30 Ur Squamous Epith Cells <1 /hpf (0-4) 05/05/21 15:30 Urine Mucus Rare /hpf (None) H 05/05/21 15:30 Urine Opiates Screen Not Detected (NotDetected) 04/27/21 22:26 Ur Oxycodone Screen Not Detected (NotDetected) 04/27/21 22:26 Urine Methadone Screen Not Detected (NotDetected) 04/27/21 22:26 Ur Propoxyphene Screen Not Detected (NotDetected) 04/27/21 22:26 Ur Barbiturates Screen Not Detected (NotDetected) 04/27/21 22:26 U Tricyclic Antidepress Not Detected (NotDetected) 04/27/21 22:26 Ur Phencyclidine Scrn Not Detected (NotDetected) 04/27/21 22:26 Ur Amphetamines Screen Not Detected (NotDetected) 04/27/21 22:26 U Methamphetamines Scrn Not Detected (NotDetected) 04/27/21 22:26 U Benzodiazepines Scrn Not Detected (NotDetected) 04/27/21 22:26 Urine Cocaine Screen Not Detected (NotDetected) 04/27/21 22:26 U Marijuana (THC) Screen Detected (NotDetected) H 04/27/21 22:26 Coronavirus (PCR) Not Detected (Not Detectd) 04/27/21 23:28 Vital Signs Temp 97.7 F 05/12/21 06:48 Pulse 55 L 05/12/21 06:48 Resp 18 05/12/21 06:48 BP 104/51 05/12/21 06:48 Pulse Ox 97 05/10/21 16:06 Intake & Output 05/12/21 05/13/21 05/13/21 18:59 06:59 18:59 Weight 62.2 kg Patient Condition at Discharge: Stable Plan - Discharge Summary Discharge Rx Participant: No New Discharge Prescriptions: New Paliperidone IM [Invega Sustenna] 156 mg IM QMONTHLY #1 syr Nicotine 21Mg/24Hr Patch [Habitrol] 1 patch TRANSDERM DAILY 14 Days patch Sertraline [Zoloft] 50 mg PO DAILY 30 Days tab Continue Melatonin 10 mg PO HS 30 Days tablet Discontinued FLUoxetine HCL [PROzac] 20 mg PO DAILY 30 Days cap OLANZapine [ZyPREXA] 15 mg PO HS 30 Days tablet Discharge Medication List Melatonin 10 mg PO HS 30 Days tablet 05/13/21 [Rx] Nicotine 21Mg/24Hr Patch [Habitrol] 1 patch TRANSDERM DAILY 14 Days patch 05/13/21 [Rx] Paliperidone IM [Invega Sustenna] 156 mg IM QMONTHLY #1 syr 05/13/21 [Rx] Sertraline [Zoloft] 50 mg PO DAILY 30 Days tab 05/13/21 [Rx] Follow up Appointment(s)/Referral(s): None,Stated [Primary Care Provider] - 1-2 days Activity/Diet/Wound Care/Special Instructions: Activity and diet as tolerated. Avoid the use of street drugs and alcohol. Take all medications as prescribed. When you are in need of refills on your medications please contact your medical provider and/or outpatient psychiatrist to have this done. Please go to scheduled outpatient appointment for aftercare treatment. If symptoms return or become worse, call the crisis line at and/or go to the nearest emergency room for evaluation. Discharge Disposition: HOME SELF-CARE
== END 2021-05-13 14:46 | disposition home or self-care (01) | DRG 885 ==
LOC: EC 21:31 → 3MHU 23:55
PROVIDERS: ADMIT Psychiatry & Neurology Psychiatry; ATTEND Psychiatry & Neurology Psychiatry
DX: F20.9 Schizophrenia, unspecified (principal); F31.9 Bipolar disorder, unspecified; Z59.0 Homelessness; Z78.1 Physical restraint status; F12.10 Cannabis abuse, uncomplicated; F17.200 Nicotine dependence, unspecified, uncomplicated; G47.00 Insomnia, unspecified; Z91.14 Patient's other noncompliance with medication regimen; Z20.822 Contact with and (suspected) exposure to COVID-19
CPT/HCPCS: 80306; 81001; 81003; 82075; 87635; 99285

== ENCOUNTER 2022-01-22 18:35 | Emergency (ER) | payer OTHER ==
--- NOTE | 2022-01-22 20:35 | ED ---
General Adult HPI - General Chief complaint: Nausea/Vomiting/Diarrhea Stated complaint: vomiting Time Seen by Provider: 01/22/22 20:17 Source: patient Mode of arrival: ambulatory Limitations: no limitations - History of Present Illness Initial comments: This 22-year-old male presents emergency department requesting "I need a clearance to go back to work." Patient states today he ate a really spicey [employer] meat stick, which he has never had an about 1-2 hours later he vomited that up. Patient states he was sent here by work to get cleared to go back to work. Patient currently denies nausea, vomiting, fever. Patient states "I feel great and I don't have any complaints, I just need a note for work that I don't have Covid." Patient denies any hemoptysis, hematochezia. Patient denies any upper respiratory symptoms, chest pain, shortness of breath, abdominal pain, headache, dizziness, lightheadedness, blurred vision, visual changes, change in bowel or bladder, back pain. - Related Data Home Medications Medication Instructions Recorded Confirmed No Known Home Medications 01/22/22 01/22/22 Allergies Allergy/AdvReac Type Severity Reaction Status Date / Time No Known Allergies Allergy Verified 01/22/22 20:43 Review of Systems ROS Statement: Those systems with pertinent positive or pertinent negative responses have been documented in the HPI. ROS Other: All systems not noted in ROS Statement are negative. Past Medical History Past Medical History: No Reported History History of Any Multi-Drug Resistant Organisms: None Reported Past Surgical History: No Surgical Hx Reported Past Psychological History: Bipolar, Depression Smoking Status: Vaper Past Alcohol Use History: Occasional Past Drug Use History: Marijuana General Exam Limitations: no limitations General appearance: alert, in no apparent distress Head exam: Present: atraumatic, normocephalic Eye exam: Present: normal appearance, PERRL, EOMI Pupils: Present: normal accommodation ENT exam: Present: mucous membranes moist Neck exam: Present: full ROM Respiratory exam: Present: normal lung sounds bilaterally. Absent: respiratory distress, wheezes, rales, rhonchi, stridor Cardiovascular Exam: Present: regular rate, normal rhythm, normal heart sounds. Absent: systolic murmur, diastolic murmur, rubs, gallop, clicks GI/Abdominal exam: Present: soft, normal bowel sounds. Absent: distended, tenderness, guarding, rebound, rigid Extremities exam: Present: full ROM, normal capillary refill. Absent: pedal edema, joint swelling, calf tenderness Back exam: Present: full ROM. Absent: tenderness, CVA tenderness (R), CVA tenderness (L), paraspinal tenderness, vertebral tenderness Neurological exam: Present: alert, oriented X3, CN II-XII intact, normal gait Psychiatric exam: Present: normal affect, normal mood Skin exam: Present: warm, dry, intact, normal color. Absent: rash Course Vital Signs 01/22/22 01/22/22 19:14 22:03 Temperature 98.1 F 98 F Pulse Rate 71 78 Respiratory 20 22 Rate Blood Pressure 97/61 105/63 O2 Sat by Pulse 99 97 Oximetry Medical Decision Making - Medical Decision Making This 22-year-old male presents emergency department for clearance for work after having one episode of vomiting earlier today. Vital signs unremarkable. Physical exam unremarkable. COVID-19 and influenza A and B both negative. Patient without any complaints and states he feels like usual. He denies any nausea, vomiting, abdominal pain or any other symptoms at this time. Strict return precautions were discussed. Patient to follow-up with primary care provider with any changes in the next couple of days. Patient verbally agreed to plan. Patient sent home in stable condition. Case discussed with my attending, . - Lab Data Lab Results 01/22/22 01/22/22 Range/Units 20:52 21:18 Coronavirus (PCR) Not Detected (Not Detectd) Influenza Type A RNA Not Detected (Not Detectd) Influenza Type B (PCR) Not Detected (Not Detectd) Disposition Clinical Impression: Vomiting, COVID-19 ruled out by laboratory testing Disposition: HOME SELF-CARE Condition: Stable Instructions (If sedation given, give patient instructions): Acute Nausea and Vomiting (ED) Additional Instructions: Please return to emergency department if any new, worsening, or concerning symptoms. Please follow up with primary care provider next 24-48 hours. Is patient prescribed a controlled substance at d/c from ED?: No Referrals: None,Stated [Primary Care Provider] - 1-2 days Time of Disposition: 21:50
[2022-01-22 22:04] VITALS: BP 105/63; PULSE 78; RESP 22; TEMP 98
== END 2022-01-22 22:04 | disposition home or self-care (01) ==
LOC: EC 18:35
DX: R11.10 Vomiting, unspecified (principal); F31.9 Bipolar disorder, unspecified; F17.290 Nicotine dependence, other tobacco product, uncomplicated; F12.90 Cannabis use, unspecified, uncomplicated; Z20.822 Contact with and (suspected) exposure to COVID-19
CPT/HCPCS: 87502; 87635; 99284

== ENCOUNTER 2022-03-19 11:07 | Inpatient (IN) | payer MEDICAID, OTHER ==
[2022-03-19] MEDS ORDERED: ZIPRASIDONE 20 MG VIAL IM STA (12:12)
[2022-03-19] MEDS ORDERED: LORazepam 2 MG/ML INJ IM STA (12:13)
--- NOTE | 2022-03-19 13:29 | ED ---
General Adult HPI - General Source: patient, family, RN notes reviewed, old records reviewed Mode of arrival: ambulatory Limitations: no limitations <Yeison Agustin - Last Filed: 03/19/22 14:59> <Az Lilly - Last Filed: 03/19/22 16:47> - General Chief complaint: Psychiatric Symptoms Stated complaint: Mental health Time Seen by Provider: 03/19/22 11:17 - History of Present Illness Initial comments: This is a 22-year-old male who presents emergency Department with a friend per the friend he is been brought in because he is acting bizarre. Patient himself is babbling and is very tangential thinking is not able to answer questions accurately and makes statements that are definitely not in reality. Patient is occasionally rapping a conversation but again even the rapping it does not make sense. Friend made the statement that the patient is making suicidal comments however he has not made any of those in my presence. (Yeison Agustin) - Related Data Home Medications Medication Instructions Recorded Confirmed No Known Home Medications 01/22/22 03/19/22 Allergies Allergy/AdvReac Type Severity Reaction Status Date / Time No Known Allergies Allergy Verified 03/19/22 14:30 Review of Systems ROS Other: All systems not noted in ROS Statement are negative. <Yeison Agustin - Last Filed: 03/19/22 14:59> ROS Other: All systems not noted in ROS Statement are negative. <Az Lilly - Last Filed: 03/19/22 16:47> ROS Statement: Those systems with pertinent positive or pertinent negative responses have been documented in the HPI. Past Medical History Past Medical History: No Reported History History of Any Multi-Drug Resistant Organisms: None Reported Past Surgical History: No Surgical Hx Reported Past Psychological History: Bipolar, Depression Smoking Status: Vaper Past Alcohol Use History: Occasional Past Drug Use History: Marijuana <Yeison Agustin - Last Filed: 03/19/22 14:59> General Exam Limitations: no limitations <Yeison Agustin - Last Filed: 03/19/22 14:59> - General Exam Comments Initial Comments: GENERAL: Patient is well-developed and well-nourished. Patient is nontoxic and well- hydrated and is in no acute distress. ENT: Neck is soft and supple. No significant lymphadenopathy is noted. Oropharynx is clear. Moist mucous membranes. Neck has full range of motion without eliciting any pain. EYES: The sclera were anicteric and conjunctiva were pink and moist. Extraocular movements were intact and pupils were equal round and reactive to light. Eyelids were unremarkable. PULMONARY: Unlabored respirations. Good breath sounds bilaterally. No audible rales rhonchi or wheezing was noted. CARDIOVASCULAR: There is a regular rate and rhythm without any murmurs gallops or rubs. ABDOMEN: Soft and nontender with normal bowel sounds. SKIN: Skin is clear with no lesions or rashes and otherwise unremarkable. NEUROLOGIC: Patient is alert and oriented 1. Cranial nerves II through XII are grossly intact. Motor and sensory are also intact. Normal speech, volume and content. Symmetrical smile. MUSCULOSKELETAL: Normal extremities with adequate strength and full range of motion. LYMPHATICS: No significant lymphadenopathy is noted PSYCHIATRIC: Patient is not making sense and making very bizarre statements. Patient is unable to focus at times answer even the simplest questions. (Yeison Agustin) Course Vital Signs 03/19/22 11:09 Temperature 97.6 F Pulse Rate 68 Respiratory 16 Rate Blood Pressure 119/79 O2 Sat by Pulse 98 Oximetry Procedures - Restraint - Face to Face Restraint Occurrence 1 Patient's Immediate Situation: Endangers self safety, Endangers others' safety Patient's Reaction to the Intervention: Uncooperative, Hostile, Belligerent, Aggressive, Combative Patient's Medical & Behavioral Condition: Awake, Alert Face to Face Eval of Restraint Date: 03/19/22 Face to Face Eval of Restraint Time: 12:12 <Yeison Agustin - Last Filed: 03/19/22 14:59> Medical Decision Making <Yeison Agustin - Last Filed: 03/19/22 14:59> <Az Lilly - Last Filed: 03/19/22 16:47> - Medical Decision Making Dr. Lilly will be taking over the care of this patient at 3 PM (Yeison Agustin) Patient's care is signed out at shift change awaiting EPS evaluation. Patient has been petitioned. He is under court order for mental health evaluation. His behavior is erratic and disorganized. He is paranoid. I did complete a clinical certification on this patient and the patient will be admitted to this institution for further psychiatric evaluation treatment. (Az Lilly) - Lab Data Lab Results 03/19/22 Range/Units 15:25 Urine Opiates Screen Not Detected (NotDetected) Ur Oxycodone Screen Not Detected (NotDetected) Urine Methadone Screen Not Detected (NotDetected) Ur Propoxyphene Screen Not Detected (NotDetected) Ur Barbiturates Screen Not Detected (NotDetected) U Tricyclic Antidepress Not Detected (NotDetected) Ur Phencyclidine Scrn Not Detected (NotDetected) Ur Amphetamines Screen Not Detected (NotDetected) U Methamphetamines Scrn Not Detected (NotDetected) U Benzodiazepines Scrn Not Detected (NotDetected) Urine Cocaine Screen Not Detected (NotDetected) U Marijuana (THC) Screen Detected H (NotDetected) Disposition <Yeison Agustin - Last Filed: 03/19/22 14:59> Is patient prescribed a controlled substance at d/c from ED?: No Time of Disposition: 16:47 <Az Lilly - Last Filed: 03/19/22 16:47> Clinical Impression: Acute psychosis, Unspecified psychosis Disposition: ADMITTED IP TO THIS [facility] Condition: Stable Referrals: None,Stated [Primary Care Provider] - 1-2 days
[2022-03-19 15:45] LABS: Amphetamine Screen,Urine Not Detected (NotDetected); Barbiturate Screen,Urine Not Detected (NotDetected); Benzodiazepines Screen,Urine Not Detected (NotDetected); Cocaine Screen,Urine Not Detected (NotDetected); Methadone Screen, Urine Not Detected (NotDetected); Opiate Screen,Urine Not Detected (NotDetected); Oxycodone Screen, Urine Not Detected (NotDetected); Phencyclidine Screen,Urine Not Detected (NotDetected); Tricyclic Antidepressant,Urine Not Detected (NotDetected); Urn Cannabinoid Scrn Detected (NotDetected)
[2022-03-19] MEDS ORDERED: NICOTINE 7MG/24HR PATCH TRANSDERM STA (16:28)
[2022-03-19] MEDS ORDERED: ACETAMINOPHEN TAB 325 MG TAB PO PRN (19:02)
[2022-03-19] MEDS ORDERED: MAG HYDROX/AL HYDROX/SIMETH 30 ML CUP PO PRN (19:02)
[2022-03-19] MEDS ORDERED: MAGNESIUM HYDROXIDE 2,400 MG/10 ML CUP PO PRN (19:02)
[2022-03-19] MEDS ORDERED: LORazepam 2 MG/ML INJ IM PRN (19:06)
[2022-03-19] MEDS ORDERED: QUEtiapine 50 MG TAB PO PRN (19:07)
[2022-03-19] MEDS ORDERED: ONDANSETRON 4 MG TAB PO PRN (19:08)
[2022-03-19] MEDS ORDERED: LORazepam 1 MG TAB PO STA (19:08)
[2022-03-19] MEDS ORDERED: diphenhydrAMINE 50 MG/ML 1 ML VIAL IM STA (19:51)
[2022-03-19] MEDS: HALOPERIDOL LACTATE 5 MG/ML 1 ML VIAL IM PRN (19:55)
--- NOTE | 2022-03-19 23:37 | P.MHFACE ---
Face to Face Restrain/Seclus - Evaluation Patient's Immediate Situation: Endangers self safety, Violent behavior Patient's Reaction to the Intervention: Calm, Uncooperative Patient's Medical & Behavioral Condition: Sleeping Need to Continue or Terminate Restraint or Seclusion: Continue Face to Face Eval of Restraint Date: 03/19/22 Face to Face Eval of Restraint Time: 21:08
--- NOTE | 2022-03-19 23:40 | P.CONS ---
History of Present Illness - Reason for Consult Consult date: 03/19/22 medical eval Requesting physician: Christopher Rockwell - Chief Complaint acute psychosis - History of Present Illness patient is in seclusion , initially was sleeping, but when awaken , she seemed agitated, not cooperating with exam or interview Review of Systems ROS unobtainable: due to mental status Past Medical History Past Medical History: No Reported History History of Any Multi-Drug Resistant Organisms: None Reported Past Surgical History: No Surgical Hx Reported Past Psychological History: Bipolar, Depression Smoking Status: Vaper Past Alcohol Use History: Occasional Past Drug Use History: Marijuana - Past Family History family Family Medical History: Unable to Obtain Medications and Allergies Home Medications Medication Instructions Recorded Confirmed Type No Known Home Medications 01/22/22 03/19/22 History Allergies Allergy/AdvReac Type Severity Reaction Status Date / Time No Known Allergies Allergy Verified 03/19/22 14:30 Physical Exam Vitals: Vital Signs Temp Pulse Pulse Resp BP BP Pulse Ox 03/19/22 20:15 97.1 F L 92 20 116/73 03/19/22 18:52 97.4 F L 55 L 18 121/81 100 03/19/22 11:09 97.6 F 68 16 119/79 98 Intake and Output 03/19/22 03/19/22 03/20/22 14:59 22:59 06:59 Other: Weight 53.524 kg 52.4 kg patient aggressive agitated, unable to exam at this time, uncooperative Results Labs: Abnormal Lab Results - Last 24 Hours (Table) 03/19/22 Range/Units 15:25 U Marijuana (THC) Screen Detected H (NotDetected) Assessment and Plan Assessment: acute psychosis and bizarre behavior management per psych follow up labs Thank you for allowing us to participate in the care of this patient. We will follow peripherally. Do not hesitate to contact us with questions. Someone can be reached from the [facility] hospitalist group at all hours of the day at [phone].
[2022-03-20] MEDS ORDERED: traZODone HCL 50 MG TAB PO PRN (09:02)
--- NOTE | 2022-03-20 09:05 | P.HP ---
Psychiatric H&P - . H&P Date: 03/20/22 History & Physical: Allergies Allergy/AdvReac Type Severity Reaction Status Date / Time No Known Allergies Allergy Verified 03/19/22 14:30 Vital Signs Temp 97.1 F L 03/19/22 20:15 Pulse 92 03/19/22 20:15 Resp 20 03/19/22 20:15 BP 116/73 03/19/22 20:15 Pulse Ox 100 03/19/22 18:52 Intake & Output 03/19/22 03/20/22 03/20/22 18:59 06:59 18:59 Weight 53.524 kg 52.4 kg Laboratory Last Values Urine Opiates Screen Not Detected (NotDetected) 03/19/22 15:25 Ur Oxycodone Screen Not Detected (NotDetected) 03/19/22 15:25 Urine Methadone Screen Not Detected (NotDetected) 03/19/22 15:25 Ur Propoxyphene Screen Not Detected (NotDetected) 03/19/22 15:25 Ur Barbiturates Screen Not Detected (NotDetected) 03/19/22 15:25 U Tricyclic Antidepress Not Detected (NotDetected) 03/19/22 15:25 Ur Phencyclidine Scrn Not Detected (NotDetected) 03/19/22 15:25 Ur Amphetamines Screen Not Detected (NotDetected) 03/19/22 15:25 U Methamphetamines Scrn Not Detected (NotDetected) 03/19/22 15:25 U Benzodiazepines Scrn Not Detected (NotDetected) 03/19/22 15:25 Urine Cocaine Screen Not Detected (NotDetected) 03/19/22 15:25 U Marijuana (THC) Screen Detected (NotDetected) H 03/19/22 15:25 Coronavirus (PCR) Not Detected (Not Detectd) 03/19/22 17:55 03/20/22 08:03 IDENTIFYING DATA: Patient is a 22-year-old male, claims that he currently lives with his girlfriend in an apartment, has no kids. HPI: Patient presented to the hospital yesterday accompanied by his friend. Apparently patient was acting bizarre and was tangential, disorganized in his speech and thoughts. Patient apparently was also wrapping in the ER however was not making much sense. Patient had a UDS which was positive for THC. He was admitted involuntarily to the mental health unit on a petition and certificate. Patient apparently was also in restraints last night for aggressive behavior and unable to be redirected. Patient has a history of psychosis and on his last psychiatric hospitalization one year ago, patient was placed on Invega Sustenna. Patient was seen today by mortgage loan underwriter. Patient wanted to speak in the hallways. He was fairly illogical, disorganized in his thought process and also his speech. Patient was difficult to redirect and answered questions inappropriately during conversations. He spoke about "needing space" and "people all up in my business". He claims that he does not know why he came to the hospital and was demanding to be discharged. He spoke negatively about medications and also previously being on a court order. He made several bizarre statements which were inappropriate. He appeared to be responding to internal stimuli and laughing at times. He claims that he is not going to take medications at this time and does not feel he needs antipsychotics. He claims that he has been smoking marijuana heavily daily. He also smokes cigarettes. He claims that his sleep has been fair, denying any mood symptoms or anxiety. Patient denies any suicidal or homicidal ideations intent or plan. At this time patient denies any auditory or visual hallucinations. Patient was previously on a court order for mental health treatment however this October 2021. PAST PSYCHIATRIC HISTORY: Patient has a history of psychosis and cannabis use. Patient was previously on Zoloft, melatonin and Invega Sustenna 156 mg IM maintenance. Patient has had several psychiatric admissions in the past and his last hospitalization on the mental health unit was in 04/19. Patient was following up with [facility]. He was previously on a court order however this in October 2021. Patient denies any history of suicide attempts in the past. PMH:denies ALLERGIES: as per EMR CHEMICAL DEPENDENCY HISTORY: as per HPI FAMILY PSYCHIATRIC/SUBSTANCE USE HISTORY: denies SOCIAL HISTORY: Quenching Machine Operator was unable to gather appropriate social history due to patient's mental status. He is currently living with his girlfriend and apartment has no kids. MENTAL STATUS EXAM: General Appearance: Patient appears to be short in stature, thin, stated age is alert, bizarre and difficult to redirect. Patient appears to have poor hygiene and grooming. Behavior: Patient is seated without any agitated behavior. Laughing at times inappropriately. Responding to internal stimuli. Speech: Patient's speech is disorganized. Mood/Affect: Patient reports their mood is "fine", affect is congruent and constricted. Suicidality/Homicidality: Patient denies having any homicidal ideation intent or plan. Denies any suicidal ideations intent or plan Perceptions: Patient denies any visual hallucinations and denies any auditory hallucinations Though content/process: Patient is rambling, illogical, loose associations. Bizarre statements. Inappropriately. Memory and concentration: AOX3, grossly intact for the purposes of this session. Can spell "WORLD" backwards Judgment and insight: poor STRENGTHS/WEAKNESSES: strength is that patient is resilient. Weakness is that patient has poor judgment and is impulsive INTELLECT: average IMPRESSIONS: Schizophrenia Cannabis use disorder Nicotine dependence PLAN: -Patient is admitted under involuntary status to MHU for stabilization of psychiatric symptoms and safety. Patient has not signed adult voluntary form and medication consent and is placed in patient's chart. A second certification was completed and along with petition will be filed for court. -Medications : Will start patient on paliperidone 3 mg daily at bedtime for psychosis. Plan will be to transition patient back on to [facility] due to high likelihood of noncompliance. trazodone 50 mg qhs prn for sleep. -Ativan and Haldol PRN for agitation/aggression -Patient was informed of the risks, benefits and side effects of the medication, patient claims that he will not take meds or sign the med consent form. -Internal Medicine consult to perform medical evaluation and physical. -NRT - nicotine patch -SW on board for discharge planning. Encourage patient to participate in groups to work on coping skills. Will await deferral and court date.
[2022-03-20] MEDS: NICOTINE 14MG/24HR PATCH TRANSDERM SCH (09:31)
[2022-03-20] MEDS: haloperidoL 5 MG TAB PO PRN (17:02)
[2022-03-20] MEDS ORDERED: PALIPERIDONE 3 MG TAB.ER.24 PO SCH (21:00)
[2022-03-21] MEDS: haloperidoL 5 MG TAB PO PRN ×2 (04:49→17:09)
[2022-03-21] MEDS: NICOTINE 14MG/24HR PATCH TRANSDERM SCH (08:15)
--- NOTE | 2022-03-21 09:14 | P.PN ---
Progress Note - Text Progress Note Date: 03/21/22 Interval History: Patient was seen wandering the hallways and was directable and agreeable to kelby ji with health technical writer in the office. Patient continues to ramble at times, tangential and continues to endorse some paranoia. He states that he wants to "take care of my business" and was fairly vague about the reasons why he wants to be discharged from the unit. He continues to have very poor insight and judgment. He states that he did take the medications last night however does not believe that he needs it. We spoke about the court process. He continues to mention bizarre comments at times and continues to be focused on discharge and "getting back to business". He states that he slept fairly last night and has a fair appetite. At this time patient denies any suicidal or homical ideations, intent or plan. Patient denies any auditory, visual hallucinations. Patient denies any side effects from the medications and has been compliant with meds. Mental Status Exam: General Appearance: Patient appears to be short in stature, thin, stated age is alert, bizarre and difficult to redirect, improving mildly. Patient appears to have improving hygiene and grooming. Behavior: Patient is seated without any agitated behavior. not Responding to internal stimuli. bizarre at times Speech: Patient's speech is disorganized. Mood/Affect: Patient reports their mood is "ok", affect is congruent and constricted. Suicidality/Homicidality: Patient denies having any homicidal ideation intent or plan. Denies any suicidal ideations intent or plan Perceptions: Patient denies any visual hallucinations and denies any auditory hallucinations Though content/process: Patient is rambling, illogical, loose associations. Bizarre statements. Focused on discharge. Memory and concentration: AOX3, grossly intact for the purposes of this session Judgment and insight: poor, improving mildly. IMPRESSIONS: Schizophrenia Cannabis use disorder Nicotine dependence Plan: -Patient continues to meet criteria for inpatient psychiatric admission for symptom stabilization and safety. Patient has not signed adult voluntary form and medication consent and was placed in patient's chart. -Medications: paliperidone 3 mg daily at bedtime for psychosis for tonight, then increase to 6 mg tomorrow night. Plan will be to transition patient back on to [facility] due to high likelihood of noncompliance. trazodone 50 mg qhs prn for sleep. -When necessary Ativan and Haldol for agitation/aggression. -NRT - nicotine patch -SW on board for discharge planning. Encouraged the patient to participate in milieu. Currently awaiting deferral with commercial litigation attorney and court date.
[2022-03-21] MEDS: HALOPERIDOL LACTATE 5 MG/ML 1 ML VIAL IM PRN (10:45)
[2022-03-21] MEDS: LORazepam 2 MG/ML INJ IM PRN (10:46)
[2022-03-21] MEDS: LORazepam 1 MG TAB PO PRN (17:09)
[2022-03-21] MEDS ORDERED: PALIPERIDONE 3 MG TAB.ER.24 PO ONE (21:00)
[2022-03-22] MEDS: HALOPERIDOL LACTATE 5 MG/ML 1 ML VIAL IM PRN (14:10)
[2022-03-22] MEDS: LORazepam 2 MG/ML INJ IM PRN (14:10)
[2022-03-22] MEDS: NICOTINE 14MG/24HR PATCH TRANSDERM SCH (14:29)
[2022-03-22] MEDS ORDERED: haloperidoL 5 MG TAB PO STA (15:29)
--- NOTE | 2022-03-22 20:27 | P.PN ---
Progress Note - Text Progress Note Date: 03/22/22 Interval History: Patient was evaluated in the conference room and is eating a bag of chips. Patient denies auditory or visual hallucinations. He does not endorse paranoid ideations. Thoughts are disorganized, difficult to follow. At this time patient denies any suicidal or homical ideations, intent or plan. Patient denies any auditory, visual hallucinations. Patient denies any side effects from the medications, except for drooling which objectively he does not appear to drool, and has been compliant with meds. Mental Status Exam: General Appearance: Patient appears to be thin, stated age. Hygiene is fair. Behavior: Patient is seated without any agitated behavior, but is odd. Speech: Patient's speech is disorganized. Mood/Affect: Patient reports their mood is "ok", affect is congruent and constricted. Suicidality/Homicidality: Patient denies having any homicidal or suicidal ideation intent or plan. Perceptions: Patient denies any visual hallucinations and denies any auditory hallucinations. Though content/process: Patient is rambling with loose associations. Memory and concentration: Grossly intact for the purposes of this session Judgment and insight: poor, improving mildly. IMPRESSIONS: Schizophrenia Cannabis use disorder Nicotine dependence Plan: -Patient continues to meet criteria for inpatient psychiatric admission for symptom stabilization and safety. Patient has not signed adult voluntary form and medication consent and was placed in patient's chart. -Medications: Increase Invega to 6 mg QHS starting tonight. Plan will be to transition patient back on to Invega Sustenna due to high likelihood of noncompliance. Continue Trazodone 50 mg qhs prn for sleep. -When necessary Ativan and Haldol for agitation/aggression. -NRT - nicotine patch -SW on board for discharge planning. Encouraged the patient to participate in milieu. Currently awaiting deferral with energy attorney and court date.
[2022-03-22] MEDS: PALIPERIDONE 6 MG TAB.ER.24 PO SCH (20:59)
[2022-03-23] MEDS: NICOTINE 14MG/24HR PATCH TRANSDERM SCH (08:08)
[2022-03-23] MEDS: LORazepam 1 MG TAB PO PRN ×2 (09:48→20:43)
[2022-03-23] MEDS: haloperidoL 5 MG TAB PO PRN ×2 (09:49→20:42)
--- NOTE | 2022-03-23 19:44 | P.PN ---
Progress Note - Text Progress Note Date: 03/23/22 Interval History: Patient was evaluated in the conference room. He was agitated earlier today and received Haldol 5 mg po x 1 and Ativan 1 mg po x 1 for agitation. He is calmer currently and does not become agitated. He denies medication side effects and is complaint with his medications. Patient denies auditory or visual hallucinations. He does not endorse paranoid ideations. Thought process is improving but still loosely organized. At this time patient denies any suicidal or homical ideations, intent or plan. Mental Status Exam: General Appearance: Patient appears to be thin, stated age. Hygiene is improved. Behavior: Patient is seated without any agitated behavior, but is odd. Speech: Patient's speech is disorganized but improving. Mood/Affect: Patient reports their mood is "ok", affect is congruent and constricted. Suicidality/Homicidality: Patient denies having any homicidal or suicidal ideation intent or plan. Perceptions: Patient denies any visual hallucinations and denies any auditory hallucinations. Though content/process: Patient is rambling with loose associations. Memory and concentration: Grossly intact for the purposes of this session Judgment and insight: poor, improving mildly. IMPRESSIONS: Schizophrenia Cannabis use disorder Nicotine dependence Plan: -Patient continues to meet criteria for inpatient psychiatric admission for symptom stabilization and safety. Patient has not signed adult voluntary form and medication consent and was placed in patient's chart. -Medications: Increase Invega to 6 mg QHS plus 3 mg daily in the morning starting tomorrow morning. Plan will be to transition patient back on to Invega Sustenna due to high likelihood of noncompliance. Continue Trazodone 50 mg qhs prn for sleep. -When necessary Ativan and Haldol for agitation/aggression. -NRT - nicotine patch -SW on board for discharge planning. Encouraged the patient to participate in milieu. Currently awaiting deferral with packaging sales consultant and court date.
[2022-03-23] MEDS: PALIPERIDONE 6 MG TAB.ER.24 PO SCH (20:18)
--- NOTE | 2022-03-24 11:02 | PN ---
PROGRESS NOTE INTERVAL HISTORY: The patient was seen today for psychiatric followup. He was noted to be attending group this morning. He was directable today and answering most questions appropriately. He states that he is doing better. He continues to have very superficial insight into his condition and believes that he came into the hospital for a "sore stomach." He claims that the medications have been helping; however, he was fairly vague as to what they are helping him with. He states that his hand is feeling much better and claims that he was "very upset" before punching the wall on Thursday. He appears to have a constricted affect. More directable today. He states that he is sleeping fairly throughout the night. He made some bizarre statements during conversation. He continues to be focused on discharge. It was explained that the pastry chef will come and speak with him today regarding his options for court versus signing a deferral. Patient does not report any suicidal or homicidal ideations, intent or plan today. He is not reporting any auditory or visual hallucinations. MENTAL STATUS EXAM: Patient appears to be short in stature, directable today, continues to be superficial. Improving hygiene and grooming. Patient's speech is concrete, fluent. He reports that his mood is "fine" and is denying any depression today. Affect is fairly constricted. Patient does not report any auditory or visual hallucinations, does not report any suicidal or homicidal ideations, intent or plan. His concentration and memory are alert and oriented x3 and concentration appears to be improving. Insight and judgment are poor, improving mildly. ASSESSMENT AND PLAN: Patient will continue with current assessment. Continue with current medications as prescribed. Patient will likely need to be transitioned back onto long-acting injection due to history of noncompliance with medications and treatment. Patient is currently involuntary and will be meeting with his pastry chef today for deferral. Continue to encourage patient's participation in milieu and group activities. Likely discharge in 2 to 3 days. MMODL / IJN: [id number] /
[2022-03-24] MEDS: PALIPERIDONE 3 MG TAB.ER.24 PO SCH (16:26)
[2022-03-24] MEDS: NICOTINE 14MG/24HR PATCH TRANSDERM SCH (16:26)
[2022-03-24] MEDS: PALIPERIDONE 6 MG TAB.ER.24 PO SCH (20:47)
[2022-03-25] MEDS: NICOTINE 14MG/24HR PATCH TRANSDERM SCH (08:19)
[2022-03-25] MEDS: PALIPERIDONE 3 MG TAB.ER.24 PO SCH (08:20)
--- NOTE | 2022-03-25 10:13 | P.PN ---
Progress Note - Text Progress Note Date: 03/25/22 Interval History: Patient was seen wandering the hallways and was directable and agreeable to sp pavank with development writer. Patient was attending group however left group early to speak with development writer. He is offering no complaints however does appear to be constricted in his affect. He states that he is not depressed or anxious today. He has poverty of content today in his speech. He denied any overnight complaints. He did make some bizarre statements at times however was fairly focused on discharge. Information Technology Manager asked patient what he spoke about with the claim attorney and he states "I have to take meds" however was fairly superficial. He continues to have very poor insight and judgment. Patient has been refusing his morning dose of invega for the past two days. we also spoke about transitioning him onto a long acting medication however he opposed this initially however was agreeable afterwards. He states that he slept fairly last night and has a fair appetite. At this time patient denies any suicidal or homical ideations, intent or plan. Patient denies any auditory, visual hallucinations. Patient denies any side effects from the medications and has been compliant with meds. Mental Status Exam: General Appearance: Patient appears to be short in stature, thin, stated age is alert, difficult to redirect, improving mildly. Patient appears to have improving hygiene and grooming. Behavior: Patient is seated without any agitated behavior. Not Responding to internal stimuli. Speech: Patient's speech is disorganized. Mood/Affect: Patient reports their mood is "fine", affect is congruent and constricted. Suicidality/Homicidality: Patient denies having any homicidal ideation intent or plan. Denies any suicidal ideations intent or plan Perceptions: Patient denies any visual hallucinations and denies any auditory hallucinations Though content/process: Patient is more logical today, loose associations. some Bizarre statements. Focused on discharge. Memory and concentration: AOX3, grossly intact for the purposes of this session Judgment and insight: chronically poor, improving mildly. IMPRESSIONS: Schizophrenia Cannabis use disorder Nicotine dependence Plan: -Patient continues to meet criteria for inpatient psychiatric admission for symptom stabilization and safety. Patient has not signed adult voluntary form and medication consent and was placed in patient's chart. -Medications: increase paliperidone 9 mg daily at bedtime for psychosis. Plan will be to transition patient back on to Invega Sustenna due to high likelihood of noncompliance, ordered loading dose of Invega sustenna today. trazodone 50 mg qhs prn for sleep. -When necessary Ativan and Haldol for agitation/aggression. -NRT - nicotine patch -SW on board for discharge planning. Encouraged the patient to participate in milieu. Patient signed the deferral with his claim attorney.
[2022-03-25] MEDS ORDERED: PALIPERIDONE IM 234 MG/1.5 ML SYG IM ONE (12:00)
[2022-03-25] MEDS ORDERED: PALIPERIDONE 3 MG TAB.ER.24 PO SCH (21:00)
[2022-03-26] MEDS: NICOTINE 14MG/24HR PATCH TRANSDERM SCH (08:02)
--- NOTE | 2022-03-26 11:28 | P.PN ---
Progress Note - Text Progress Note Date: 03/26/22 Interval History: Patient was seen wandering the hallways and was directable and agreeable to sp margy with service writer. Patient states that he is going to group and attempting to participate. He appeared to be less impulsive today and more directable during the interview. He states that he is doing "okay" and denies any overnight complaints. He states that he is sleeping fairly. He claims that he took the long-acting injection yesterday and tolerated it well. He states that he feels "calmer". He is denying any racing thoughts or flight of ideas today. Not responding to internal stimuli. Fair appetite. Continues to have superficial insight into his condition and is chronically poor. Patient was focused on discharge. At this time patient denies any suicidal or homical ideations, intent or plan. Patient denies any auditory, visual hallucinations. Patient denies any side effects from the medications and has been compliant with meds. Mental Status Exam: General Appearance: Patient appears to be short in stature, thin, stated age is alert, more directable, improving mildly. Patient appears to have improving hygiene and grooming. Behavior: Patient is seated without any agitated behavior. Not Responding to internal stimuli. Speech: Patient's speech is more organized today. concrete Mood/Affect: Patient reports their mood is "ok", affect is congruent and constricted. Suicidality/Homicidality: Patient denies having any homicidal ideation intent or plan. Denies any suicidal ideations intent or plan Perceptions: Patient denies any visual hallucinations and denies any auditory hallucinations Though content/process: Patient is more logical today, Focused on discharge. sup erficial insight into his need for meds and hospitalization. Memory and concentration: AOX3, grossly intact for the purposes of this session Judgment and insight: chronically poor, improving mildly. IMPRESSIONS: Schizophrenia Cannabis use disorder Nicotine dependence Plan: -Patient continues to meet criteria for inpatient psychiatric admission for symptom stabilization and safety. Patient has not signed adult voluntary form and medication consent and was placed in patient's chart. -Medications: paliperidone 9 mg daily at bedtime for psychosis then decrease down to 6 mg tomorrow. he received Invega Sustenna 234 mg IM on 03/25 and will be due for his next dose on 03/30 of 156 mg IM. trazodone 50 mg qhs prn for sleep. -When necessary Ativan and Haldol for agitation/aggression. -NRT - nicotine patch -SW on board for discharge planning. Encouraged the patient to participate in milieu. Patient signed the deferral with his commercial litigation attorney. patient will need to be hospitalized on the MHU until he receives his second dose of AKERS scheduled for thursday. likely discharge thursday.
[2022-03-26] MEDS: LORazepam 2 MG/ML INJ IM PRN (14:49)
[2022-03-26] MEDS: HALOPERIDOL LACTATE 5 MG/ML 1 ML VIAL IM PRN (14:49)
--- NOTE | 2022-03-26 17:43 | P.MHFACE ---
Face to Face Restrain/Seclus - Evaluation Patient's Immediate Situation - Comment: Pts immediate situation resolved, and now no longer requiring restraints. Patient's Reaction to the Intervention: Appropriate, Calm, Relaxed, Cooperative Patient's Medical & Behavioral Condition: Awake, Alert, Follows directions Need to Continue or Terminate Restraint or Seclusion: Terminate Face to Face Eval of Restraint Date: 03/26/22 Face to Face Eval of Restraint Time: 16:15
[2022-03-26] MEDS ORDERED: PALIPERIDONE 3 MG TAB.ER.24 PO ONE (21:00)
[2022-03-27] MEDS: NICOTINE 14MG/24HR PATCH TRANSDERM SCH (07:55)
--- NOTE | 2022-03-27 09:52 | P.PN ---
Progress Note - Text Progress Note Date: 03/27/22 Interval History: Patient was seen wandering the hallways and was directable and agreeable to sp eak with television script writer. Patient was fairly persistent in wanting to speak with television script writer this morning. He continues to be fairly concrete and superficial. He acknowledged that he went into seclusion yesterday however was fairly vague about why that occurred. He apologized for this incident to television script writer and states "it won't happen again". Pulverizer Tender also asked patient why he is hanging around the doors and attempting to elope and patient states that "I don't do that anymore I know I can't leave". He continues to be fairly superficial and focused on discharge. He was fairly concrete. Thought process appears to be mildly improving and he is less impulsive today. He did have an episode yesterday where he was agitated and not directable and needed seclusion late afternoon. He states that he feels "calmer". He is denying any racing thoughts or flight of ideas today. Not responding to internal stimuli. Fair appetite. Continues to have superficial insight into his condition and is chronically poor. At this time patient denies any suicidal or homical ideations, intent or plan. Patient denies any auditory, visual hallucinations. Patient denies any side effects from the medications and has been compliant with meds. Mental Status Exam: General Appearance: Patient appears to be short in stature, thin, stated age is alert, more directable, improving mildly. Patient appears to have improving hyg iene and grooming. Behavior: Patient is seated without any agitated behavior. Not Responding to internal stimuli. Superficial. Speech: Patient's speech is more organized today. concrete Mood/Affect: Patient reports their mood is "fine", affect is congruent and constricted. Suicidality/Homicidality: Patient denies having any homicidal ideation intent or plan. Denies any suicidal ideations intent or plan Perceptions: Patient denies any visual hallucinations and denies any auditory hallucinations Though content/process: Patient is more logical today, Focused on discharge. superficial insight Memory and concentration: AOX3, grossly intact for the purposes of this session Judgment and insight: chronically poor and superficial, improving mildly. IMPRESSIONS: Schizophrenia Cannabis use disorder Nicotine dependence Plan: -Patient continues to meet criteria for inpatient psychiatric admission for symptom stabilization and safety. Patient has not signed adult voluntary form and medication consent and was placed in patient's chart. -Medications: Continue with paliperidone 9 mg daily at bedtime for psychosis. he received Invega Sustenna 234 mg IM on 03/25 and will be due for his next dose on 03/30 of 156 mg IM if appropriate. if patient continues to worsen then will consider switching patient onto prolixin instead. trazodone 50 mg qhs prn for sleep. -When necessary Ativan and Haldol for agitation/aggression. -NRT - nicotine patch -SW on board for discharge planning. Encouraged the patient to participate in milieu. Patient signed the deferral with his compliance attorney. patient will need to be hospitalized on the [facility] until he receives his second dose of AKERS and is improving psychiatrically. possible discharge thursday.
[2022-03-27] MEDS: PALIPERIDONE 6 MG TAB.ER.24 PO SCH ×2 (21:12→21:14)
--- NOTE | 2022-03-28 11:35 | P.PN ---
Progress Note - Text Progress Note Date: 03/28/22 Interval History: Patient was seen wandering the hallways and was directable and agreeable to sp margy with keno writer. The patient did appear to be fairly polite with keno writer. He states that he did not take his medications last night and apparently was claiming that he was trying to prove that he does not need medications and can function without it. Patient appears to have some mild improvement in his insight however continues to be oppositional at times and disruptive on the unit. Patient sometimes is difficult to redirect during conversation. He claims that he does not have a problem with being on the unit. He states that he is not depressed or anxious. He is denying any racing thoughts or flight of ideas today. Not responding to internal stimuli. He claims that his sleep was fair last night. At this time patient denies any suicidal or homical ideations, intent or plan. Patient denies any auditory, visual hallucinations. He is denying any side effects. Mental Status Exam: General Appearance: Patient appears to be short in stature, thin, stated age is alert, more directable, improving mildly. Patient appears to have improving hygiene and grooming. Behavior: Patient is seated without any agitated behavior. Not Responding to internal stimuli. Superficial. Speech: Patient's speech is more organized today. concrete Mood/Affect: Patient reports their mood is "ok", affect is incongruent and constricted. Suicidality/Homicidality: Patient denies having any homicidal ideation intent or plan. Denies any suicidal ideations intent or plan Perceptions: Patient denies any visual hallucinations and denies any auditory hallucinations Though content/process: Patient is more logical today, Focused on discharge. superficial insight. This evening at times. Memory and concentration: AOX3, grossly intact for the purposes of this session Judgment and insight: chronically poor and superficial IMPRESSIONS: Schizophrenia Cannabis use disorder Nicotine dependence Plan: -Patient continues to meet criteria for inpatient psychiatric admission for symptom stabilization and safety. Patient has not signed adult voluntary form and medication consent and was placed in patient's chart. -Medications: Continue with paliperidone 6 mg daily at bedtime for psychosis. he received Invega Sustenna 234 mg IM on 03/25 and will be due for his next dose likely thursday. if patient continues to worsen then will consider switching patient onto prolixin instead. trazodone 50 mg qhs prn for sleep. -When necessary Ativan and Haldol for agitation/aggression. -NRT - nicotine patch -SW on board for discharge planning. Encouraged the patient to participate in milieu. Patient signed the deferral with his business attorney however due to non compliance with meds, will be filing demand for hearing today. patient will need to be hospitalized on the [facility] until he receives his second dose of AKERS and is i mproving psychiatrically
[2022-03-28] MEDS ORDERED: diphenhydrAMINE 50 MG/ML 1 ML VIAL IM STA (14:49)
[2022-03-28] MEDS: HALOPERIDOL LACTATE 5 MG/ML 1 ML VIAL IM PRN (14:52)
[2022-03-28] MEDS: LORazepam 2 MG/ML INJ IM PRN (14:52)
[2022-03-28] MEDS: diphenhydrAMINE 50 MG/ML 1 ML VIAL IM PRN (15:05)
--- NOTE | 2022-03-29 10:28 | P.PN ---
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 I sometimes uses cannabis I'm not hearing any voices or seeing things I do not believe that I have any disorder and I do not need any medications Objective data: Patient was pleasant in interaction Affect at this time was euthymic and bright Thought processes are concrete delusional projective and patient seems to rationalize and intellectualize Insight into his problem is poor Patient is not exhibiting any EPS tremors or any signs of tardive dyskinesia Plan: We'll continue current medications as prescribed Continue supportive care Patient continues to be in need of current hospitalization for safety and stabilization [facility] 03/29/2022 Objective - Vital Signs Vital signs: Vital Signs Temp 97.8 F 03/29/22 04:26 Pulse 98 03/29/22 04:26 Resp 16 03/29/22 04:26 BP 105/60 03/29/22 04:26 Pulse Ox 100 03/28/22 06:47
[2022-03-30] MEDS ORDERED: PALIPERIDONE IM 234 MG/1.5 ML SYG IM ONE (09:00)
[2022-03-30] MEDS: LORazepam 1 MG TAB PO PRN (09:34)
[2022-03-30] MEDS: haloperidoL 5 MG TAB PO PRN (09:34)
--- NOTE | 2022-03-31 10:28 | P.PN ---
Progress Note - Text Progress Note Date: 03/31/22 Interval History: Patient was seen sitting in a group this morning and signwriter approach patient to speak with him. Patient continues to be fairly superficial and concrete. He continues to have very poor insight and judgment into his condition and need for medications. He continues to state that he does not need medications and signwriter spoke with him about the court process which she answered questions about. Patient claims that "today was the day was supposed to be discharged" and claims that he does not care about the court process or seeing the operational risk manager. He continues to have poor impulse control and makes bizarre statements at times. has been noticed to be responding to internal stimuli. He claims that his sleep was fair last night. At this time patient denies any suicidal or homical ideations, intent or plan. Patient denies any auditory, visual hallucinations. He is denying any side effects. Mental Status Exam: General Appearance: Patient appears to be short in stature, thin, stated age is alert, bizzare, concrete, improving mildly. Patient appears to have improving hygiene and grooming. Behavior: Patient is seated without any agitated behavior. Responding to internal stimuli. Superficial. Speech: Patient's speech is more organized today. concrete Mood/Affect: Patient reports their mood is "ok", affect is incongruent and constricted. Suicidality/Homicidality: Patient denies having any homicidal ideation intent or plan. Denies any suicidal ideations intent or plan Perceptions: Patient denies any visual hallucinations and denies any auditory hallucinations Though content/process: Patient is illogical today, Focused on discharge. demanding, superficial insight Memory and concentration: AOX3, grossly intact for the purposes of this session Judgment and insight: chronically poor and superficial IMPRESSIONS: Schizophrenia Cannabis use disorder Nicotine dependence Plan: -Patient continues to meet criteria for inpatient psychiatric admission for symptom stabilization and safety. Patient has not signed adult voluntary form and medication consent and was placed in patient's chart. -Medications: He received Invega Sustenna 234 mg IM on 03/25 however due to the severity of patients psychosis we will need to change the antipsychotic. Prolixin PO increased to 5mg tid for psychosis. trazodone 50 mg qhs prn for sleep. -When necessary Ativan, benadryl and Haldol for agitation/aggression. -NRT - nicotine patch -SW on board for discharge planning. Encouraged the patient to participate in milieu. Patient signed the deferral with his balling head tender however due to non compliance with meds, filed demand for hearing which will take place thuApril 02.
[2022-03-31 13:59] VITALS: BMI 25.3
[2022-03-31] MEDS: LORazepam 1 MG TAB PO PRN (15:33)
[2022-03-31] MEDS: haloperidoL 5 MG TAB PO PRN (15:39)
[2022-04-01 07:16] VITALS: TEMP 97.9
--- NOTE | 2022-04-01 10:17 | P.PN ---
Progress Note - Text Progress Note Date: 04/01/22 Interval History: Patient was seen coming out of his room today after using the restroom. Firebrick Layer Helper approached patient to be interviewed. Patient states that "I don't have much to say today". He continued to walk down the hallway as proposal writer was speaking with him. He appeared to have improvement in his impulse control and was not irritable today. He was fairly concrete and constricted in his affect. He states that he is doing "a lot better" and has no complaints about the medications. He has superficial insight however was agreeable to continue on with the medications. We spoke briefly about the court process. He states that he slept fairly last night. Patient was more appropriate today and not responding to internal stimuli. At this time patient denies any suicidal or homical ideations, intent or plan. Patient denies any auditory, visual hallucinations. He is denying any side effects. Mental Status Exam: General Appearance: Patient appears to be short in stature, thin, stated age is alert, concrete, improving mildly. Patient appears to have improving hygiene and grooming. Behavior: Patient is seated without any agitated behavior. Superficial. More directable today. Speech: Patient's speech is more organized today. concrete Mood/Affect: Patient reports their mood is "fine", affect is congruent and constricted. Suicidality/Homicidality: Patient denies having any homicidal ideation intent or plan. Denies any suicidal ideations intent or plan Perceptions: Patient denies any visual hallucinations and denies any auditory hallucinations Though content/process: Patient is logical today, superficial insight. [place], poverty of content. Memory and concentration: AOX3, grossly intact for the purposes of this session Judgment and insight: chronically poor and superficial, improving mildly. IMPRESSIONS: Schizophrenia Cannabis use disorder Nicotine dependence Plan: -Patient continues to meet criteria for inpatient psychiatric admission for symptom stabilization and safety. Patient has not signed adult voluntary form and medication consent and was placed in patient's chart. -Medications: He received Invega Sustenna 234 mg IM on 03/25 however due to the severity of patients psychosis we will need to change the antipsychotic. Prolixin PO 5mg bid for psychosis. trazodone 50 mg qhs prn for sleep. plan will be to transition patient onto prolixin D prioir to discharge. -When necessary Ativan, benadryl and Haldol for agitation/aggression. -NRT - nicotine patch -SW on board for discharge planning. Encouraged the patient to participate in milieu. Patient signed the deferral with his estate attorney however due to non compliance with meds. Patients demand hearing date will be thuApril 02.
--- NOTE | 2022-04-02 09:57 | P.PN ---
Progress Note - Text Progress Note Date: 04/02/22 Interval History: Patient was seen wandering the hallways today. Patient was approached by business writer and patient continued to walk past business writer in the hallway. Patient claims that he is doing okay and denied any overnight complaints. He states that he spoke with his family over the phone yesterday. He continues to be fairly superficial and concrete. He states that he has been taking his medication and case claims that he is feeling "good". She is denying any depression today or any anxiety. He appeared to have improvement in his impulse control and was not irritable today. He was not making any bizarre comments today. He claims that he did not go to group this morning however was encouraged to do so. He has superficial insight however was agreeable to continue on with the medications. We spoke briefly about the court process. He states that he slept fairly last night. Patient was more appropriate today and not responding to internal stimuli. At this time patient denies any suicidal or homical ideations, intent or plan. Patient denies any auditory, visual hallucinations. He is denying any side effects. Mental Status Exam: General Appearance: Patient appears to be short in stature, thin, stated age is alert, concrete, improving mildly. Patient appears to have improving hygiene and grooming. Behavior: Patient is seated without any agitated behavior. Superficial. More directable today. Speech: Patient's speech is more organized today. concrete Mood/Affect: Patient reports their mood is "good", affect is congruent and constricted. Suicidality/Homicidality: Patient denies having any homicidal ideation intent or plan. Denies any suicidal ideations intent or plan Perceptions: Patient denies any visual hallucinations and denies any auditory hallucinations Though content/process: Patient is logical today, superficial insight. [place], poverty of content. more cooperative Memory and concentration: AOX3, grossly intact for the purposes of this session Judgment and insight: chronically poor and superficial, improving mildly. IMPRESSIONS: Schizophrenia Cannabis use disorder Nicotine dependence Plan: -Patient continues to meet criteria for inpatient psychiatric admission for symptom stabilization and safety. Patient has not signed adult voluntary form and medication consent and was placed in patient's chart. -Medications: He received Invega Sustenna 234 mg IM on 03/25 however due to the severity of patients psychosis we changed the antipsychotic. Prolixin PO 5mg bid for psychosis. trazodone 50 mg qhs prn for sleep. plan will be to transition patient onto prolixin D prioir to discharge. -When necessary Ativan, benadryl and Haldol for agitation/aggression. -NRT - nicotine patch -SW on board for discharge planning. Encouraged the patient to participate in milieu. Patient signed the deferral with his district attorney however due to non compliance with meds. Patients demand hearing date will be thuApril 02.
[2022-04-02] MEDS ORDERED: flUPHENAZine 2.5 MG/ML (MDV) 10 ML VIAL IM PRN (12:10)
[2022-04-03 07:53] VITALS: BP 122/58; PULSE 92; RESP 20
--- NOTE | 2022-04-03 08:33 | P.PN ---
Progress Note - Text Progress Note Date: 04/03/22 Interval History: Patient was seen wandering the hallways today after breakfast and approached magaly lorenz in his office wanting to speak to him. Patient continues to have a constricted affect. He was carrying a bag with some of his closing it. He continues to deny any side effects or any problems of his medications at this time. He states that he just finished breakfast and has been eating fairly. He claims that he is sleeping fairly at night. He is not endorsing any paranoia or delusions today. He appears to be improving in terms of his cooperativeness and is less irritable. He is not mentioning any bizarre statements today. We spoke about his mental health condition however he continues to believe that he does not need medications. He is agreeable however to take the Prolixin D injection today. He states that the sueding and buffing machine operator "echoed what ever you guys sad" and claimed that he did not understand the court process yesterday however is agreeable to continue on with the treatment and court order. Patient was more appropriate today and not responding to internal stimuli. At this time patient denies any suicidal or homical ideations, intent or plan. Patient denies any auditory, visual hallucinations. He is denying any side effects. Mental Status Exam: General Appearance: Patient appears to be short in stature, thin, stated age is alert, concrete, improving mildly. Patient appears to have improving hygiene and grooming. Behavior: Patient is seated without any agitated behavior. Superficial. More directable today. Speech: Patient's speech is more organized today. concrete Mood/Affect: Patient reports their mood is "ok", affect is congruent and constricted. Suicidality/Homicidality: Patient denies having any homicidal ideation intent or plan. Denies any suicidal ideations intent or plan Perceptions: Patient denies any visual hallucinations and denies any auditory hallucinations Though content/process: Patient is logical today, superficial insight. [place], poverty of content. more cooperative Memory and concentration: AOX3, grossly intact for the purposes of this session Judgment and insight: chronically poor and superficial, improving mildly. IMPRESSIONS: Schizophrenia Cannabis use disorder Nicotine dependence Plan: -Patient continues to meet criteria for inpatient psychiatric admission for symptom stabilization and safety. Patient has not signed adult voluntary form and medication consent and was placed in patient's chart. -Medications: He received Invega Sustenna 234 mg IM on 03/25 however due to the severity of patients psychosis we changed the antipsychotic. Prolixin PO 7 mg bid for psychosis. trazodone 50 mg qhs prn for sleep. Patient will receive 50 mg IM prolixin D today. -When necessary Ativan, benadryl and Haldol for agitation/aggression. -NRT - nicotine patch -SW on board for discharge planning. Encouraged the patient to participate in milieu. Patient received court order for mental health treatment on April 02. Will give Im prolixin D today and likely prepare for discharge tomorrow.
[2022-04-03] MEDS ORDERED: flUPHENAZine 2.5 MG/ML (MDV) 10 ML VIAL IM PRN (11:39)
[2022-04-03] MEDS: diphenhydrAMINE 50 MG/ML 1 ML VIAL IM PRN (11:39)
[2022-04-03] MEDS: LORazepam 2 MG/ML INJ IM PRN (11:39)
[2022-04-03] MEDS: HALOPERIDOL LACTATE 5 MG/ML 1 ML VIAL IM PRN (11:39)
[2022-04-03] MEDS ORDERED: fluPHENAZine DECANOATE 25 MG/ML 5ML MDV IM ONE (12:00)
[2022-04-03] MEDS ORDERED: DIVALPROEX ER 500 MG TAB.ER.24H PO SCH (21:00)
--- NOTE | 2022-04-04 11:45 | P.DS ---
Providers Date of admission: 03/19/22 18:32 Expected date of discharge: 04/04/22 Attending physician: Fiilberto Pearce MD Consults: 03/19/22 19:02 Consult Physician Routine Consulting Provider: Rajan Sloan Consult Reason/Comments: history and physical/medical management Do you want consulting provider notified?: Yes Primary care physician: Stated None - Discharge Diagnosis(es) (1) Schizophrenia Current Visit: Yes Status: Acute Priority: High (2) Cannabis abuse Current Visit: Yes Status: Acute Priority: High (3) Nicotine dependence Current Visit: Yes Status: Acute Priority: Low Hospital Course: Admission HPI: Admission note was completed by auto service writer "Patient is a 22-year-old male, claims that he currently lives with his girlfriend in an apartment, has no kids. Patient presented to the hospital yesterday accompanied by his friend. Apparently patient was acting bizarre and was tangential, disorganized in his speech and thoughts. Patient apparently was also wrapping in the ER however was not making much sense. Patient had a UDS which was po sitive for THC. He was admitted involuntarily to the mental health unit on a petition and certificate. Patient apparently was also in restraints last night for aggressive behavior and unable to be redirected. Patient has a history of psychosis and on his last psychiatric hospitalization one year ago, patient was placed on Invega Sustenna. Patient was seen today by auto service writer. Patient wanted to speak in the hallways. He was fairly illogical, disorganized in his thought process and also his speech. Patient was difficult to redirect and answered questions inappropriately during conversations. He spoke about "needing space" and "people all up in my business". He claims that he does not know why he came to the hospital and was demanding to be discharged. He spoke negatively about medications and also previously being on a court order. He made several bizarre statements which were inappropriate. He appeared to be responding to internal stimuli and laughing at times. He claims that he is not going to take medications at this time and does not feel he needs antipsychotics. He claims that he has been smoking marijuana heavily daily. He also smokes cigarettes. He claims that his sleep has been fair, denying any mood symptoms or anxiety. Patient denies any suicidal or homicidal ideations intent or plan. At this time patient denies any auditory or visual hallucinations. Patient was previously on a court order for mental health treatment however this October 2021." Hospital course: Upon admission to the unit patient was admitted involuntarily on a petition and certificate and a second certificate was completed and faxed with the courts. Patient ended up signing a deferral with the converter supervisor and agreeing to treatment. However shortly after patient began stopped taking his medications and was refusing treatment and therefore a demand for hearing was filed with the courts and patient had a hearing on April 02 which resulted in a mental health treatment in order. Patient was noted to be responding to internal stimuli during his hospitalization which gradually improved. He was fairly focused on discharge, did have some episodes of aggression and attempting to elope from the unit. Patient was started on invega po and given AKERS invega sustenna loading dose however patient was continuing to exhbit psychotic sx. His medication was changed to prolixin and increased to an oral dose of 10 mg bid and improved much more along with depakote 500 mg qhs for mood stabilziation. He was given Prolixin D 50 mg IM on 04/03 and tolerated it well. He got along well with other patients and attend some groups. He denied any side effects throughout hospital course. Patient spoke of his stressors . Patient was also seen by medical team for history and physical exam. Throughout the course of the hospitalization patient gradually improved with regards to mood, psychosis/delusions/aggression, sleep and returned back to their baseline level of functioning. Patient cont inues to have superficial insight and judgment. On the day of discharge patient denied any suicidal or homicidal ideations intent or plan denied any auditory or visual hallucinations. Patient endorsed wanting to live for his health and future. The patient denied any access to guns or weapons. Patient denied any paranoia and did not endorse any delusions. Patient does have a significant history of substance abuse and was counseled on abstaining from all substances including alcohol and marijuana. Patient elected to do outpatient substance use treatment program through [facility]. Patient was also counseled on the medications and need for regular compliance and was encouraged to follow-up with their outpatient appointment for mental health and also for primary care. Prior to discharge SW will attempt to reach out to his family to ensure they are ok with having him stay with them and the enviroment is safe. Patient is his own gaurdian at this point and if he is not allowed to go back to friends/families house then he will be given the option for potential shelters. Mental status exam: General Appearance: Patient appears to be short in stature,stated age is alert, pleasant, and attempts to be cooperative. Patient is in no acute distress and has improved hygiene and grooming Behavior: Patient is calmly seated without any agitated behavior. Calmer today. Speech: Patient's speech is fluent and nonpressured. Monotone Mood/Affect: Patient reports their mood is "better", affect is congruent and constricted Suicidality/Homicidality: Patient denies having any suicidal or homicidal i deation intent or plan. Perceptions: Patient denies any auditory or visual hallucinations. Though content/process: There is no evidence of any delusional thought content and thought process is linear and goal-directed. Independence. Memory and concentration: AOX3, grossly intact for the purposes of this session. Can spell "WORLD" backwards correctly. Judgment and insight: chronically poor, however has improved with guarded prognosis Impression: Schizophrenia Cannabis abuse Nicotine dependence Plan: -Continue with discharge today as patient has improved and stabilized psychiatrically and is not currently an imminent threat to himself and/or others. Patient will remain at chronically elevated risk for harm to self and/or others due to his impulsivity and substance abuse and chronically poor insight. -Continue medications: Prolixin by mouth 10 mg twice a day for psychosis for 4 days then discontinue. Patient was given Prolixin D 50 mg IM injection on 04/03 and will be due in 2 weeks on 04/17 for his next dose. Depakote ER 500 mg daily at bedtime for mood stabilization. -Patient was counseled on the need for medication compliance and appropriate follow-up at mental health and also primary care for medical issues. Patient verbalized understanding and agreed. -Social work to arrange for and conduct family meeting to ensure safety upon discharge and answer any questions/concerns. If patient is not allowed back at families house then he will be given referral to long-term if needed. Social work also to arrange for patients follow up appointments with [facility] for psychiatric care along with follow up with primary care provider. -Patient counseled on abstaining from recreational drugs and marijuana and alcohol. Was informed/educated on the adverse effects on their physical and mental health. Patient verbally agreed and understood. Patient was offered substance abuse treatment however declined at this time. -Patient was instructed to return to the hospital or seek immediate medical care if their psychiatric or medical symptoms do worsen or reoccur. Allergies Allergy/AdvReac Type Severity Reaction Status Date / Time No Known Allergies Allergy Verified 03/19/22 14:30 Laboratory Results Urine Opiates Screen Not Detected (NotDetected) 03/19/22 15:25 Ur Oxycodone Screen Not Detected (NotDetected) 03/19/22 15:25 Urine Methadone Screen Not Detected (NotDetected) 03/19/22 15:25 Ur Propoxyphene Screen Not Detected (NotDetected) 03/19/22 15:25 Ur Barbiturates Screen Not Detected (NotDetected) 03/19/22 15:25 U Tricyclic Antidepress Not Detected (NotDetected) 03/19/22 15:25 Ur Phencyclidine Scrn Not Detected (NotDetected) 03/19/22 15:25 Ur Amphetamines Screen Not Detected (NotDetected) 03/19/22 15:25 U Methamphetamines Scrn Not Detected (NotDetected) 03/19/22 15:25 U Benzodiazepines Scrn Not Detected (NotDetected) 03/19/22 15:25 Urine Cocaine Screen Not Detected (NotDetected) 03/19/22 15:25 U Marijuana (THC) Screen Detected (NotDetected) H 03/19/22 15:25 Coronavirus (PCR) Not Detected (Not Detectd) 03/19/22 17:55 Vital Signs Temp 97.9 F 04/01/22 07:15 Pulse 92 04/03/22 07:00 Resp 20 04/03/22 07:00 BP 122/58 04/03/22 07:00 Pulse Ox 98 04/01/22 07:15 Patient Condition at Discharge: Stable Plan - Discharge Summary New Discharge Prescriptions: New Divalproex ER [Depakote ER] 500 mg PO HS 30 Days fluPHENAZine [Prolixin] 10 mg PO BID 4 Days tab fluPHENAZine decanoate [Prolixin Decanoate] 50 mg IM [id number] #1 each Discharge Medication List Divalproex ER [Depakote ER] 500 mg PO HS 30 Days 04/04/22 [Rx] fluPHENAZine [Prolixin] 10 mg PO BID 4 Days tab 04/04/22 [Rx] fluPHENAZine decanoate [Prolixin Decanoate] 50 mg IM [id number] #1 each 04/04/22 [Rx] Follow up Appointment(s)/Referral(s): None,Stated [Primary Care Provider] - 1-2 days Activity/Diet/Wound Care/Special Instructions: Activity and diet as tolerated. Avoid the use of street drugs and alcohol. Take all medications as prescribed. When you are in need of refills on your medications please contact your medical provider and/or outpatient psychiatrist to have this done. Please go to scheduled outpatient appointment for aftercare treatment. If symptoms return or become worse, call the crisis line at and/or go to the nearest emergency room for evaluation Discharge Disposition: OTHER INSTITUTION NOT DEFINED
--- NOTE | 2022-04-07 15:14 | CDI ---
Documentation Clarification Form Date: 04/07/2022 03:04:00 PM From: Steph Barnardsamsonmarkie Phone: If questions, call [phone] (between 8 am and 5pm thursday thru thursday) Admit Date: 03/19/2022 06:32:00 PM Patient Name: Alexx Castaneda Visit Number: [id number] Discharge Date: 04/04/2022 02:02:00 PM ATTENTION: The Clinical Documentation Specialists (CDI) and HIM Coding Staff appreciate your assistance in clarifying documentation. Please respond to the clarification below the line at the bottom and electronically sign. Please note: Queries are made part of the Legal Health Record. If you have any questions, please contact the author of this message via ITS. Dr. Filiberto Pearce Cannabis abuse is documented in Discharge Summary. However, all of the progress notes in the record state cannabis use disorder. Additional clarification regarding the status of this due to conflicting documentation. Please clarify : Cannabis Abuse or Cannabis Use Disorder. Yes, I would like to change it to cannabis abuse as it was used signifcantly and liked caused social and interpersonal issues along with health concerns. MTDD
== END 2022-04-04 14:02 | disposition home or self-care (01) | DRG 885 ==
LOC: EC 11:07 → 3MHU 18:32
PROVIDERS: ADMIT Psychiatry & Neurology Psychiatry; ATTEND Psychiatry & Neurology Psychiatry
DX: F20.9 Schizophrenia, unspecified (principal); F17.210 Nicotine dependence, cigarettes, uncomplicated; F12.10 Cannabis abuse, uncomplicated; Z78.1 Physical restraint status; Z79.899 Other long term (current) drug therapy; Z91.14 Patient's other noncompliance with medication regimen; Z91.19 Patient's noncompliance with other medical treatment and regimen; Z20.822 Contact with and (suspected) exposure to COVID-19
CPT/HCPCS: 80306; 82075; 87635; 96372; 99285

== ENCOUNTER 2024-05-24 08:22 | Inpatient (IN) | payer MEDICAID, OTHER ==
--- NOTE | 2024-05-24 09:42 | ED ---
General Adult HPI - General Chief complaint: Altered Mental Status Stated complaint: AMS Time Seen by Provider: 05/24/24 08:25 Source: patient, EMS Mode of arrival: EMS - History of Present Illness Initial comments: Dictation was produced using [employer] dictation software. please excuse any grammatical, word or spelling errors. Chief Complaint: 24-year-old male presents emergency department for feeling hungry and upset that he got a girl History of Present Illness: Patient 24-year-old male he initially called 911 for being upset. He was initially cleared by EMS. He called 911 again and EMS brought him into the emergency department for altered mental status. At the bedside patient states that he is just hungry and upset because he got ago . Denies any suicidal homicidal ideation. Patient has no visual auditory hallucinations. Patient denies any physical complaints. The ROS documented in this emergency department record has been reviewed and c onfirmed by me. Those systems with pertinent positive or negative responses have been documented in the HPI. All other systems are other negative and/or noncontributory. - Related Data Home Medications Medication Instructions Recorded Confirmed No Known Home Medications 05/24/24 05/24/24 Allergies Allergy/AdvReac Type Severity Reaction Status Date / Time No Known Allergies Allergy Verified 05/24/24 09:41 Review of Systems ROS Statement: Those systems with pertinent positive or pertinent negative responses have been documented in the HPI. ROS Other: All systems not noted in ROS Statement are negative. Past Medical History Past Medical History: No Reported History History of Any Multi-Drug Resistant Organisms: None Reported Past Surgical History: No Surgical Hx Reported Past Psychological History: Bipolar, Depression Smoking Status: Vaper Past Alcohol Use History: Occasional Past Drug Use History: Marijuana - Past Family History family Family Medical History: Unable to Obtain General Exam - General Exam Comments Initial Comments: General: Well-appearing, nontoxic, no acute distress, alert and oriented x 4 Head: Normocephalic, atraumatic Eyes: PERRLA, EOMI ENT: Airway patent Chest: Nonlabored breathing Skin: No visual rash, normal skin tone Neuro: Alert and oriented 3 Musculoskeletal: No gross abnormalities Course Vital Signs 05/24/24 08:37 Temperature 98.2 F Pulse Rate 52 L Respiratory 16 Rate Blood Pressure 109/81 O2 Sat by Pulse 100 Oximetry Medical Decision Making - Medical Decision Making Was pt. sent in by a medical professional or institution (, PA, [facility], urgent care, hospital, or [place] [facility] [place] facility...) When possible be specific @ -No Did you speak to anyone other than the patient for history (EMS, parent, family, police, friend...)? What history was obtained from this source @ -No Did you review nursing and triage notes (agree or disagree)? Why? @ -I reviewed and agree with nursing and triage notes Were old charts reviewed (outside hosp., previous admission, EMS record, old EKG, old radiological studies, urgent care reports/EKG's, [place] health [place] facility records)? Report findings @ -No old charts were reviewed Differential Diagnosis (chest pain, altered mental status, abdominal pain women, abdominal pain men, vaginal bleeding, musculoskeletal, weakness, fever, dyspnea, syncope, headache, dizziness, GI bleed, back pain, seizure, CVA, palpatations, m ental health)? @ -Differential Mental Health: Depression, anxiety, bipolar, psychosis, schizophrenia, borderline personality, situational depression, adjustment disorder, behavioral disorder, brain tumor, malingering, substance abuse, encephalopathy, medication reaction, dementia, hypothyroidism, degenerative neurologic disorder, lupus.... This is not meant to be all-inclusive list EKG interpreted by me (3pts min.). @ -None done X-rays interpreted by me (1pt min.). @ -None done CT interpreted by me (1pt min.). @ -None done U/S interpreted by me (1pt. min.). @ -None done What testing was considered but not performed or refused? (CT, X-rays, U/S, labs)? Why? @ -None What meds were considered but not given or refused? Why? @ -None Was smoking cessation discussed for >3mins.? @ -No Were there social determinants of health that impacted care today? How? (Homelessness, low income, unemployed, alcoholism, drug addiction, transportation, low edu. Level, literacy, decrease access to med. care, halfway, rehab)? @ -No Was there de-escalation of care discussed even if they declined (Discuss DNR or withdrawal of care, Hospice)? DNR status @ -No What co-morbidities impacted this encounter? (DM, HTN, Smoking, COPD, CAD, Cancer, CVA, ARF, Chemo, Hep., AIDS, mental health diagnosis, sleep apnea, morbid obesity)? @ -None Was patient admitted / discharged? Hospital course, mention meds given and route, prescriptions, significant lab abnormalities, going to OR and other pertinent info. @ -24-year-old male states that he is here today because he is hungry and upset that he got a girl . Vital signs are stable. Patient well-appearing at the bedside. Patient not psychotic. Patient given food discharge. Did you discuss the management of the patient with other professionals (professionals i.e. , PA, [facility], lab, RT, psych nurse, social professionals, wood chopper, teacher, chief analytics officer, case management director)? Give summary @ -No Was critical care preformed (if so, how long)? @ -No Undiagnosed new problem with uncertain prognosis? @ -No Drug Therapy requiring intensive monitoring for toxicity (Heparin, Nitro, Insulin, Cardizem)? @ -No Were any procedures done? @ -No Diagnosis/symptom? Acute, or Chronic, or Acute on Chronic? Uncomplicated (without systemic symptoms) or Complicated (systemic symptoms)? @ -Hunger Side effects of treatment? @ -No Exacerbation, Progression, or Severe Exacerbation? @ -No Poses a threat to life or bodily function? How? (Chest pain, [place], [place], pneumonia, PE, COPD, DKA, ARF, appy, cholecystitis, CVA, Diverticulitis, Homicidal, Suicidal, threat to staff... and all critical care pts) @ -No Disposition Clinical Impression: Hungry Disposition: HOME SELF-CARE Condition: Good Instructions (If sedation given, give patient instructions): Altered Mental Status (ED) Is patient prescribed a controlled substance at d/c from ED?: No Referrals: None,Stated [Primary Care Provider] - 1-2 days Time of Disposition: 09:42
--- NOTE | 2024-05-24 10:04 | ED ---
Medical Decision Making - Medical Decision Making Patient was to be discharged however EPS nurse walked by and states that he recognized the patient and felt that patient needed to be evaluated for inpatient placement. Apparently has a history of bipolar disease follows up with [facility] has been admitted to inpatient psych before. EPS nurse time wanted to evaluate the patient Patient evaluated by EPS. Recommended hospital admission for concerns of bizarre behavior. Clinical certification documentation completed. - Lab Data Lab Results 05/24/24 Range/Units 10:10 Urine Opiates Screen Not Detected (NotDetected) Ur Oxycodone Screen Not Detected (NotDetected) Urine Methadone Screen Not Detected (NotDetected) Ur Barbiturates Screen Not Detected (NotDetected) U Tricyclic Antidepress Not Detected (NotDetected) Ur Phencyclidine Scrn Not Detected (NotDetected) Ur Amphetamines Screen Not Detected (NotDetected) U Methamphetamines Scrn Not Detected (NotDetected) U Benzodiazepines Scrn Not Detected (NotDetected) Urine Cocaine Screen Not Detected (NotDetected) U Marijuana (THC) Screen Detected H (NotDetected) Disposition Clinical Impression: Psychosis Disposition: ADMITTED IP TO THIS HOSP Condition: Good Referrals: None,Stated [Primary Care Provider] - 1-2 days Decision Time: 14:32
[2024-05-24 11:09] LABS: Amphetamine Screen,Urine Not Detected (NotDetected); Barbiturate Screen,Urine Not Detected (NotDetected); Benzodiazepines Screen,Urine Not Detected (NotDetected); Cocaine Screen,Urine Not Detected (NotDetected); Methadone Screen, Urine Not Detected (NotDetected); Opiate Screen,Urine Not Detected (NotDetected); Oxycodone Screen, Urine Not Detected (NotDetected); Phencyclidine Screen,Urine Not Detected (NotDetected); Tricyclic Antidepressant,Urine Not Detected (NotDetected); Urn Cannabinoid Scrn Detected (NotDetected)
[2024-05-24] MEDS ORDERED: IBUPROFEN 600 MG TAB PO PRN (20:44)
[2024-05-24] MEDS ORDERED: MAG HYDROX/AL HYDROX/SIMETH 30 ML CUP PO PRN (20:44)
[2024-05-24] MEDS ORDERED: MAGNESIUM HYDROXIDE 2,400 MG/30 ML CUP PO PRN (20:44)
[2024-05-24] MEDS: LORazepam 1 MG TAB PO PRN (21:45)
[2024-05-24] MEDS: PALIPERIDONE 3 MG TAB.ER.24 PO SCH (21:45)
[2024-05-25 08:57] LABS: ALT 12 U/L (4-49); AST 18 U/L (17-59); African American GFR (CKD) >90 (>60 ml/min/1.73 sqM); Albumin 4.4 g/dL (3.5-5.0); Alkaline Phosphatase 59 U/L (38-126); Anion Gap 5 mmol/L; Blood Urea Nitrogen 15 mg/dL (9-20); Calcium 9.7 mg/dL (8.4-10.2); Carbon Dioxide 26 mmol/L (22-30); Chloride 107 mmol/L (98-107); Glucose 88 mg/dL (74-99); Non-African American GFR(CKD) >90 (>60 ml/min/1.73 sqM); Potassium 4.4 mmol/L (3.5-5.1); Sodium 138 mmol/L (137-145); Total Protein 6.8 g/dL (6.3-8.2)
[2024-05-25] MEDS ORDERED: PALIPERIDONE 3 MG TAB.ER.24 PO SCH (09:00)
[2024-05-25 09:10] LABS: Basophils % (A) 1 %; Eosinophils # (A) 0.1 k/uL (0-0.7); Eosinophils % (A) 2 %; HGB 13.9 gm/dL (13.0-17.5); Lymphocytes # (A) 1.2 k/uL (1.0-4.8); Lymphocytes % (A) 32 %; MCH 28.1 pg (25.0-35.0); MCHC 30.9 g/dL (31.0-37.0); Mean Platelet Volume 7.7; Monocytes # (A) 0.2 k/uL (0-1.0); Monocytes % (A) 5 %; Neutrophils # (A) 2.1 k/uL (1.3-7.7); Neutrophils % (A) 58 %; Platelet Count 250 k/uL (150-450); RBC 4.94 m/uL (4.30-5.90); RDW 13.5 % (11.5-15.5); WBC 3.6 k/uL (3.8-10.6)
--- NOTE | 2024-05-25 12:00 | P.HP ---
Psychiatric H&P - . H&P Date: 05/25/24 History & Physical: Allergies Allergy/AdvReac Type Severity Reaction Status Date / Time No Known Allergies Allergy Verified 05/24/24 22:29 Vital Signs Temp 98.0 F 05/24/24 22:02 Pulse 78 05/24/24 22:02 Resp 18 05/24/24 22:02 BP 115/85 05/24/24 20:54 Pulse Ox 100 05/24/24 22:02 FiO2 Intake & Output 05/24/24 05/25/24 05/25/24 18:59 06:59 18:59 Weight 68.039 kg 68.039 kg Laboratory Last Values Sodium 138 mmol/L (137-145) 05/25/24 08:08 Potassium 4.4 mmol/L (3.5-5.1) 05/25/24 08:08 Chloride 107 mmol/L (98-107) 05/25/24 08:08 Carbon Dioxide 26 mmol/L (22-30) 05/25/24 08:08 Anion Gap 5 mmol/L 05/25/24 08:08 BUN 15 mg/dL (9-20) 05/25/24 08:08 Creatinine 1.05 mg/dL (0.66-1.25) 05/25/24 08:08 Est GFR (CKD-EPI)AfAm >90 (>60 ml/min/1.73 sqM) 05/25/24 08:08 Est GFR (CKD-EPI)NonAf >90 (>60 ml/min/1.73 sqM) 05/25/24 08:08 Glucose 88 mg/dL (74-99) 05/25/24 08:08 Calcium 9.7 mg/dL (8.4-10.2) 05/25/24 08:08 Total Bilirubin 1.0 mg/dL (0.2-1.3) 05/25/24 08:08 AST 18 U/L (17-59) 05/25/24 08:08 ALT 12 U/L (4-49) 05/25/24 08:08 Alkaline Phosphatase 59 U/L (38-126) 05/25/24 08:08 Total Protein 6.8 g/dL (6.3-8.2) 05/25/24 08:08 Albumin 4.4 g/dL (3.5-5.0) 05/25/24 08:08 Urine Opiates Screen Not Detected (NotDetected) 05/24/24 10:10 Ur Oxycodone Screen Not Detected (NotDetected) 05/24/24 10:10 Urine Methadone Screen Not Detected (NotDetected) 05/24/24 10:10 Ur Barbiturates Screen Not Detected (NotDetected) 05/24/24 10:10 U Tricyclic Antidepress Not Detected (NotDetected) 05/24/24 10:10 Ur Phencyclidine Scrn Not Detected (NotDetected) 05/24/24 10:10 Ur Amphetamines Screen Not Detected (NotDetected) 05/24/24 10:10 U Methamphetamines Scrn Not Detected (NotDetected) 05/24/24 10:10 U Benzodiazepines Scrn Not Detected (NotDetected) 05/24/24 10:10 Urine Cocaine Screen Not Detected (NotDetected) 05/24/24 10:10 U Marijuana (THC) Screen Detected (NotDetected) H 05/24/24 10:10 Influenza Type A (PCR) Not Detected (Not Detectd) 05/24/24 18:35 Influenza Type B (PCR) Not Detected (Not Detectd) 05/24/24 18:35 RSV (PCR) Not Detected (Not Detectd) 05/24/24 18:35 SARS-CoV-2 (PCR) Not Detected (Not Detectd) 05/24/24 18:35 05/25/24 09:01 IDENTIFYING DATA: Patient is a 24-year-old male, claims that he currently lives with a room mate in an apartment, unemployed. HPI: Patient presented to the hospital on 05/24. As per EPS note, "Clinician met with Alexx in room #11 of the ED. Cl presented at the ER on via EMS after c alling on themselves due to "being hungry." Cl was also reported to have been seen by police for a welfare check prior to EMS. Cl attempted to elope from ED prior to being seen. Cl presents guarded, soft spoken, refusing to answer questions, paranoid, and disorganized. Cl believes that they are " a strong leader for my brothers and sisters, as I am trying to stay out of the way, but they think I am doing this on purpose or trying to mess them up." When asked who they/them were cl state "those that take my energy' Cl was often difficult to understand due to soft tone of their voice and selective mutism. Cl is reported to believe their sig other is . When asked about this cl responds "I don't know how many kids I have, I just know they are out there somewhere".Cl displaying odd behavior, i.e. being in ER bathroom for over 20 mins and heard responding to self out loud. When asked about this cl reports " People are trying to say I do much, so I'll stay out of the way." When asked to elaborate on this, cl stated " I think there are too many questions." Cl reports keeping to themselves and that they live with a roommate whom they have only known for a few months. " We don't talk like that, I stay to myself and hang out with Lansing." Clinician was informed that this is cl's dog. When asked who Lansing was, cl refused to answer. Cl was observed at this point responding to internal stimuli. Cl presents tangential, disorganized, ideas of reference, paranoid, anxious, loose associations. Cl is monotone in speech and has flat affect throughout assessment. Cl is observed responding to internal stimuli and talking out loud to themselves. " Today, tag writer went to patients room to conduct the H&P. Beading Sawyer was unable to awaken the patient enough to get appropriate answers. The patient appeared very sedated. Will attempt to conduct a more in depth interview tomorrow. patient apparently attempted to elope in the ER and received Prn medications for agitation. patient was fairly concrete, sedated. Knows his name and his current location. He claims that "I am not getting enough sleep" claims that he does not need psychiatric medications or to be hospitalized. Was asking about discharge. Claims that he is not taking psychiatric medications. Patient denies any suicidal or homicidal ideations intent or plan. At this time patient denies any auditory or visual hallucinations. Patient denies any flight of ideas racing thoughts and increased in goal directed behavior. Patient denies using recreational drugs, however, drug screen positive for marijuana. PAST PSYCHIATRIC HISTORY: Patient has a history of psychosis and cannabis use. Patient was previously on Zoloft, melatonin and Invega Sustenna , prolixin D. currently not taking any meds. Patient has had several psychiatric admissions in the past and his last hospitalization on the mental health unit was in 02/2022. Patient was following up with [facility] in 2021. He was previously on a court order, however, this has . Patient denies any history of suicide attempts in the past. PMH:As per ER note ALLERGIES: as per EMR CHEMICAL DEPENDENCY HISTORY: as per HPI FAMILY PSYCHIATRIC/SUBSTANCE USE HISTORY: Denies SOCIAL HISTORY: due to sedation, unable to assess. MENTAL STATUS EXAM: General Appearance: Patient appears to be short in stature, thin, stated age is alert, sedated. Patient appears to have poor hygiene and grooming. Behavior: Patient is unable to wake, unable to assess. somnolent. Speech: unable to assess Mood/Affect: unable to assess Suicidality/Homicidality: unable to assess Perceptions: unable to assess Though content/process: unable to assess Memory and concentration: AOX2, to place and name Judgment and insight: poor/impulsive STRENGTHS/WEAKNESSES: strength is that patient is resilient. Weakness is that patient has poor judgment and is impulsive INTELLECT: Average IMPRESSIONS: Schizophrenia Cannabis use disorder PLAN: -Patient is admitted under involuntary status to MHU for stabilization of psychiatric symptoms and safety. Patient has not signed adult voluntary form or medication consent and is placed in patient's chart. A second certification was completed and along with petition will be filed for court. -Medications : Will start patient on invega 3 mg po bid for psychosis, will likely need to transition patient onto AKERS to ensure compliance. -Ativan and Haldol PRN for agitation/aggression -Patient was counselled on substance abuse and desired to cut back on use -Patient was informed of the risks, benefits and side effects of the medication -Internal Medicine consult to perform medical evaluation and physical. -NRT -not needed as patient does not smoke -SW on board for discharge planning. Encourage patient to participate in groups to work on coping skills. Will await deferral and court date. 05/25/24 11:35 05/25/24 11:57
[2024-05-25 15:56] LABS: Chol/HDL Ratio 2.04 Ratio; LDL Cholesterol,Calculated 79.4 mg/dL (0.0-131.0); VLDL Calculation 7.94 mg/dL (5.00-40.00)
--- NOTE | 2024-05-25 23:28 | P.MDCNMH ---
History of Present Illness H&P Date: 05/25/24 Chief Complaint: Medical evaluation 24-year-old male no significant past medical history coming into the ED for evaluation of depressed mood denies any suicidal ideation denies any hallucinations Patient denies any fevers chills nausea vomiting chest pain trouble breathing coughing abdominal pain changes in bowel or urinary habits He does report difficulty with distant vision he is trying to schedule an appointment with ophthalmology as an outpatient to get glasses He denies tobacco smoking illicit drugs and heavy alcohol he does admit to occasional marijuana review of systems Pertinent positives as noted in HPI. All other systems were reviewed and are negative on exam Constitutional: No acute distress, conversant, cooperative Eyes: Anicteric sclerae, moist conjunctiva, Pupils equal round reactive to light ENMT: NC/AT Oropharynx clear, no erythema, or exudates Lungs: Clear to auscultation Clear to percussion Normal respiratory effort, no accessory muscle use Cardiovascular: Heart regular in rate and rhythm, No murmurs, gallops, or rubs No peripheral edema Abdominal: Soft Nontender, no guarding, rebound or rigidity Abdomen moving with respiration Normoactive bowel sounds Extremities: No digital cyanosis No clubbing Pedal pulses intact and symmetrical Radial pulses intact and symmetrical No calf tenderness Psychiatric: Alert and oriented to person, place and time Neuro Muscles Strength 5/5 in all 4 extremities Sensation to light touch grossly present throughout Cranial nerves II-XII grossly intact Past Medical History Past Medical History: No Reported History History of Any Multi-Drug Resistant Organisms: None Reported Past Surgical History: No Surgical Hx Reported Smoking Status: Former smoker, Vaper - Past Family History family Family Medical History: Unable to Obtain Medications and Allergies Home Medications Medication Instructions Recorded Confirmed Type No Known Home Medications 05/24/24 05/24/24 History Allergies Allergy/AdvReac Type Severity Reaction Status Date / Time No Known Allergies Allergy Verified 05/24/24 22:29 Physical Exam Vitals: Vital Signs Temp Pulse Pulse Resp BP BP Pulse Ox 05/25/24 09:10 97 16 104/70 05/24/24 22:02 98.0 F 78 18 100 05/24/24 20:54 70 16 115/85 98 Intake and Output 05/25/24 05/25/24 05/25/24 06:59 14:59 22:59 Other: Weight 68.039 kg Cranial Nerve Examination - Cranial Nerves Cranial Nerve II- Optic: Intact Cranial Nerve III- Oculomotor: Intact Cranial Nerve IV- Trochlear: Intact Cranial Nerve V- Trigeminal: Intact Cranial Nerve - Abducens: Intact Cranial Nerve VII- Facial: Intact Cranial Nerve VIII- Auditory: Intact Cranial Nerve IX- Glossopharyngeal: Intact Cranial Nerve X- Vagus: Intact Cranial Nerve XI- Accessory: Intact Cranial Nerve XII- Hypoglossal: Intact Results CBC & Chem 7: 05/25/24 08:08 05/25/24 08:08 Labs: Abnormal Lab Results - Last 24 Hours (Table) 05/25/24 05/25/24 Range/Units 08:08 08:08 WBC 3.6 L (3.8-10.6) k/uL MCHC 30.9 L (31.0-37.0) g/dL HDL Cholesterol 83.70 H (40.00-60.00) mg/dL Assessment and Plan Assessment: Depressed mood Psych evaluation Overweight BMI 26.6 Counseled regarding lifestyle modification and weight loss Labs reviewed overall unremarkable hemoglobin 13.9 BUN 5 creatinine 1.05 A1c 5.5 LDL 79 HDL 83 TSH 3.7 Urine drug screen positive for marijuana Acute respiratory viral panel negative for COVID influenza and RSV Patient stable from medical standpoint Thank you for this consultation
--- NOTE | 2024-05-26 12:16 | P.PN ---
Progress Note - Text Progress Note Date: 05/26/24 Interval History: Patient was seen in his room and was directable and agreeable to speak with wr iter at the bedside. The patient states that he is ok today. He appears quite drowsy. He does not make any effort to engage in conversation with health technical writer. Patients radiator fitter will be coming to the unit today to see if patient would like to defer. At this time patient denies any suicidal or homicidal ideations, intent or plan. Patient denies any auditory, visual hallucinations and denies any paranoia or delusions. Patient denies any side effects from the medications and has been compliant with meds. Mental Status Exam: General Appearance: [Patient appears to be stated age is lethargic, directable, and cooperative.] Behavior: [Patient is calmly laying without any agitated behavior. Sedated Speech: Patient's speech is fluent and nonpressured. soft tone. Mood/Affect: Mood is ok, affect is congruent and constricted. Suicidality/Homicidality: Patient denies having any suicidal or homicidal ideation intent or plan. Perceptions: Patient denies any visual hallucinations [and denies any auditory hallucinations] Though content/process: There is no evidence of any delusional thought content and thought process unable to assess. concrete. Memory and concentration: AOX3, grossly intact for the purposes of this session Judgment and insight: poor Assessment Schizophrenia Cannabis use disorder Plan: -Patient is admitted under involuntary status to MHU for stabilization of psychiatric symptoms and safety. Patient has not signed adult voluntary form or medication consent and is placed in patient's chart. -Medications : change invega 6mg po qhs for psychosis, will likely need to transition patient onto AKERS to ensure compliance. -Ativan and Haldol PRN for agitation/aggression -NRT -not needed as patient does not smoke -SW on board for discharge planning. Encourage patient to participate in groups to work on coping skills. Will await deferral and court date.
[2024-05-26] MEDS: PALIPERIDONE 6 MG TAB.ER.24 PO SCH (21:55)
--- NOTE | 2024-05-27 12:00 | P.PN ---
Progress Note - Text Progress Note Date: 05/27/24 Interval History: Patient was approached today by movie writer for interview, patient was sitting with another patient in the hallway. He refused to speak with movie writer today and did not give a reason why. Mental Status Exam: General Appearance: [Patient appears to be mildly lethargic today, stated age, directable] Behavior: [Patient is sitting on the chair, mildly lethargic. Uncooperative Speech: Patient's speech is fluent and nonpressured. soft tone. Mood/Affect: Unable to assess Suicidality/Homicidality: Unable to assess Perceptions: Unable to assess Though content/process: Fairly concrete. Poverty of content Memory and concentration: Unable to assess Judgment and insight: poor Assessment Schizophrenia Cannabis use disorder Plan: -Patient is admitted under involuntary status to MHU for stabilization of psychiatric symptoms and safety. Patient has not signed adult voluntary form or medication consent and is placed in patient's chart. -Medications : invega 6mg po qhs for psychosis, will likely need to transition patient onto AKRES to ensure compliance. -Ativan and Haldol PRN for agitation/aggression -NRT -not needed as patient does not smoke -SW on board for discharge planning. Encourage patient to participate in groups to work on coping skills. Patient signed deferral with admitted attorneys on 05/26.
--- NOTE | 2024-05-28 12:10 | P.PN ---
Progress Note - Text Progress Note Date: 05/28/24 Interval History: patient was seen wandering in the halls and was agreeable in meeting with this provider in the interview room. Patient mumbles incoherently numerous paranoid ideas. Among them, he reports that he cannot look at people's faces because it might divulge information that he is not privy to share. He also states that he might convey to others "information I'll regret later ". He also mentions something about her child but is unable to explain further when asked. His thought processes is reports salad at times is difficult to understand. He reports irritable mood that has been compliant with his medication. he reports good sleep and energy. He denies side effects to the medications. He denies suicidal and homicidal ideation. Patient appears to be responding to internal stimuli. Mental Status Exam: General Appearance: appears stated age, fairly adequate hygiene and grooming Behavior: Patient is sitting on the chair, guarded although superficially cooperative Speech: Patient's speech is fluent and nonpressured. Muttering Mood/Affect: "irritable" and affect is congruent and constricted Suicidality/Homicidality: denies Perceptions: paranoia, thought broadcasting Though content/process: loose associations, word salad Memory and concentration: poor Judgment and insight: poor Assessment Schizophrenia Cannabis use disorder Plan: -Patient is admitted under involuntary status to MHU for stabilization of psychiatric symptoms and safety. Patient has not signed adult voluntary form or medication consent and is placed in patient's chart. -Medications : increase invega to 9mg po qhs for psychosis, will likely need to transition patient onto AKERS to ensure compliance. -Ativan and Haldol PRN for agitation/aggression -NRT -not needed as patient does not smoke -SW on board for discharge planning. Encourage patient to participate in groups to work on coping skills. Patient signed deferral with research attorney on 05/26.
[2024-05-28] MEDS: PALIPERIDONE 3 MG TAB.ER.24 PO SCH (22:36)
--- NOTE | 2024-05-29 17:08 | P.PN ---
Progress Note - Text Progress Note Date: 05/29/24 Interval History: Patient was seen wandering in the halls and was agreeable in meeting with this provider in the interview room. he states that his mood is "all right ". When asked more about this, he mumbles nonsensical answers including saying something about "figured out ". He states that he has been considering "some opinions ". Patient continues to be disorganized in his speech and behaviors. She reports fairly adequate appetite. He endorses good sleep at night. He reports this pr ovider after the interview again to speak about "something in private ". He states that he has been trying to be respectful in asking about discharge. He is informed that medication titration will need to be continued. When discussing it, he informs that he is not interested. He denies side effects to the medications. He denies suicidal and homicidal ideation. Patient appears to be responding to internal stimuli. Mental Status Exam: General Appearance: appears stated age, fairly adequate hygiene and grooming Behavior: Patient is sitting on the chair, guarded Speech: Patient's speech is fluent and nonpressured. Muttering Mood/Affect: "alright" and affect is constricted Suicidality/Homicidality: denies Perceptions: paranoia, thought broadcasting Though content/process: loose associations, word salad Memory and concentration: poor Judgment and insight: poor Assessment Schizophrenia Cannabis use disorder Plan: -Patient is admitted under involuntary status to MHU for stabilization of psychiatric symptoms and safety. Patient has not signed adult voluntary form or medication consent and is placed in patient's chart. -Medications : Continue invega to 9mg po qhs for psychosis, will likely need to transition patient onto AKERS to ensure compliance. -Ativan and Haldol PRN for agitation/aggression -NRT -not needed as patient does not smoke -SW on board for discharge planning. Encourage patient to participate in groups to work on coping skills. Patient signed deferral with metal leaf layer on 05/26.
--- NOTE | 2024-05-30 09:58 | P.PN ---
Progress Note - Text Progress Note Date: 05/30/24 Interval History: Patient was seen in the hallways today, he was approached by proposal lead writer to speak h owever patient did not answer any questions, refused to speak to proposal lead writer today in the office. He is taking his Invega p.o. Mental Status Exam: General Appearance: appears stated age, fairly adequate hygiene and grooming Behavior: Patient is sitting on the chair, guarded Speech: Patient's speech is fluent and nonpressured. Muttering Mood/Affect: Unable to assess Suicidality/Homicidality: denies Perceptions: paranoia, thought broadcasting Though content/process: Unable to assess Memory and concentration: poor Judgment and insight: poor Assessment Schizophrenia Cannabis use disorder Plan: -Patient is admitted under involuntary status to MHU for stabilization of psychiatric symptoms and safety. Patient has not signed adult voluntary form or medication consent and is placed in patient's chart. -Medications : Continue invega 9mg po qhs for psychosis, will likely need to transition patient onto AKERS to ensure compliance. -Ativan and Haldol PRN for agitation/aggression -NRT -not needed as patient does not smoke -SW on board for discharge planning. Encourage patient to participate in groups to work on coping skills. Patient signed deferral with trademark attorney on 05/26.
[2024-05-31] MEDS: haloperidoL 5 MG TAB PO PRN (01:52)
--- NOTE | 2024-05-31 11:08 | P.PN ---
Progress Note - Text Progress Note Date: 05/31/24 Interval History: Patient was seen in his room and was directable and agreeable to speak with wr iter in the office. The patient states that he is ok today. Patient states that he does not think that he needs medication, but has been compliant. Shotgun Shell Reprinting Unit Operator spoke with patient about receiving a AKERS, patient agreeable. Patient makes some loose associations during the interview. he states that he just needed his glasses to see and did not need medications. He states he is going to some groups. He clai ms to have a little trouble sleeping during the night. He appears somewhat bizarre during the interview. And gets a perplexed look on his face. At this time patient denies any suicidal or homicidal ideations, intent or plan. Patient denies any auditory, visual hallucinations and denies any paranoia or delusions. Patient denies any side effects from the medications and has been compliant with meds. Mental Status Exam: General Appearance: Patient appears to be stated age is dressed casually, directable, and cooperative. Behavior: [Patient is calmly seated without any agitated behavior. mildly bizarre, Speech: Patient's speech is fluent and nonpressured. soft tone. flight of ideas Mood/Affect: Mood is ok, affect is congruent and constricted. Suicidality/Homicidality: Patient denies having any suicidal or homicidal ideation intent or plan. Perceptions: Patient denies any visual hallucinations and denies any auditory hallucinations Though content/process: There is no evidence of any delusional thought content and thought process unable to assess. concrete. flight of ideas Memory and concentration: AOX3, grossly intact for the purposes of this session Judgment and insight: poor Assessment Schizophrenia Cannabis use disorder Plan: -Patient is admitted under involuntary status to MHU for stabilization of psychiatric symptoms and safety. Patient has not signed adult voluntary form or medication consent and is placed in patient's chart. -Medications : d/c invega po and replace with prolixin 3 mg bid for psychosis. will plan on transitioning to AKERS to ensure compliance prior to dc -Ativan and Haldol PRN for agitation/aggression -NRT -not needed as patient does not smoke -SW on board for discharge planning. Encourage patient to participate in groups to work on coping skills. Patient deferred with city attorney.
[2024-05-31] MEDS: PALIPERIDONE IM 234 MG/1.5 ML SYG IM STA (11:12)
[2024-05-31] MEDS: MELATONIN 3 MG TABLET PO SCH (21:28)
--- NOTE | 2024-06-01 10:50 | P.PN ---
Progress Note - Text Progress Note Date: 06/01/24 Interval History: Patient was seen in his room and was directable and agreeable to speak with wr iter in the office. The patient states that he is ok today. Patient states that was feeling confused, however, he just needed his glasses to see. He states he is going to some groups. He claims to be sleeping during the night. He claims to be eating fine. States he is feeling quite tired today. He is very soft spoken. He is somewhat bizarre, getting up after the interview, telling aligner typewriter to keep h is things. He left his bag of belongings and his drink in the office. There was an incident overnight with the patient being aggressive with nursing staff. Security was called. At this time patient denies any suicidal or homicidal ideations, intent or plan. Patient denies any auditory, visual hallucinations and denies any paranoia or delusions. Patient denies any side effects from the medications and has been compliant with meds. Mental Status Exam: General Appearance: Patient appears to be stated age is dressed casually, directable, and cooperative. Behavior: [Patient is calmly seated without any agitated behavior. mildly bizarre, Speech: Patient's speech is fluent and nonpressured. soft tone. flight of ideas Mood/Affect: Mood is ok, affect is congruent and constricted. Suicidality/Homicidality: Patient denies having any suicidal or homicidal ideation intent or plan. Perceptions: Patient denies any visual hallucinations and denies any auditory hallucinations Though content/process: There is no evidence of any delusional thought content and thought process unable to assess. concrete. flight of ideas Memory and concentration: AOX3, grossly intact for the purposes of this session Judgment and insight: poor Assessment Schizophrenia Cannabis use disorder Plan: -Patient is admitted under involuntary status to [facility] for stabilization of psychiatric symptoms and safety. Patient has not signed adult voluntary form or medication consent and is placed in patient's chart. -Medications : add cogentin 0.5 mg bid for EPS symptome, increase prolixin 4 mg bid for psychosis. will plan on transitioning to AKERS to ensure compliance prior to dc -Ativan and Haldol PRN for agitation/aggression -NRT -not needed as patient does not smoke -SW on board for discharge planning. Encourage patient to participate in groups to work on coping skills. Patient deferred with commonwealth attorney however was non compliant with meds afterwards and a demand was filed. Hearing date set for June 08.
[2024-06-01] MEDS: HALOPERIDOL LACTATE 5 MG/ML 1 ML VIAL IM PRN (19:31)
[2024-06-01] MEDS: LORazepam 2 MG/ML INJ IM PRN (19:31)
[2024-06-01] MEDS: BENZTROPINE MESYLATE 0.5 MG TAB PO SCH (22:36)
--- NOTE | 2024-06-02 10:09 | P.PN ---
Progress Note - Text Progress Note Date: 06/02/24 Interval History: Patient was seen in his room and was directable and agreeable to speak with wr iter in the office. The patient states that he is ok today. He is somewhat paranoid today,he states that last night, people were "moving in creepy ways", which caused him to act very agitated, punching the desk, and being verbally abusive to staff. he had very poor eye contact today during the interview. He required PRN injections last night due to agitation however was not able to recall what had occured. He seems very sedated today. He is very soft spoken. He is somewhat bizarre, speaking nonsensical. A demand was filed by social work. He asked about discharge, states that he needs to get back to work. At this time patient denies any suicidal or homicidal ideations, intent or plan. Patient denies any auditory, visual hallucinations and denies any paranoia or delusions. Patient denies any side effects from the medications and has been taking meds sometimes, refusing them other times. Mental Status Exam: General Appearance: Patient appears to be stated age is dressed casually, direc table, and cooperative. Behavior: [Patient is calmly seated without any agitated behavior. mildly bizarre, speaking nonsensical Speech: Patient's speech is fluent and nonpressured. soft tone. flight of ideas Mood/Affect: Mood is ok, affect is congruent and constricted. Suicidality/Homicidality: Patient denies having any suicidal or homicidal ideation intent or plan. Perceptions: Patient denies any visual hallucinations and denies any auditory hallucinations Though content/process: There is no evidence of any delusional thought content and thought process unable to assess. concrete. flight of ideas Memory and concentration: AOX3, grossly intact for the purposes of this session Judgment and insight: poor Assessment Schizophrenia Cannabis use disorder Plan: -Patient is admitted under involuntary status to [facility] for stabilization of psychiatric symptoms and safety. Patient has not signed adult voluntary form or medication consent and is placed in patient's chart. -Medications :cogentin 0.5 mg bid for EPS symptome, increase prolixin 5 mg bid for psychosis. will plan on transitioning to AKERS to ensure compliance prior to dc -Ativan and Haldol PRN for agitation/aggression -NRT -not needed as patient does not smoke -SW on board for discharge planning. Encourage patient to participate in groups to work on coping skills. Patient deferred with document review attorney however was non compliant with meds afterwards and a demand was filed. Hearing date set for June 08.
[2024-06-02] MEDS: MELATONIN 5 MG TABLET PO SCH (21:40)
--- NOTE | 2024-06-03 10:16 | P.PN ---
Progress Note - Text Progress Note Date: 06/03/24 Interval History: Patient was seen in his room and was directable and agreeable to speak with wr iter in the office. The patient states that he is alright. He was writing during the interview, states that he is writing raps. He has not been compliant with medications, he states he does not think he needs them. he had very poor eye contact today during the interview. He claims a fair appetite, and stated that he slept well last night. A demand was filed by [facility] work. At this time patient denies any suicidal or homicidal ideations, intent or plan. Patient denies any auditory, visual hallucinations and denies any paranoia or delusions. Patient denies any side effects from the medications and has been taking meds sometimes, refusing them other times. Mental Status Exam: General Appearance: Patient appears to be stated age is dressed casually, directable, and cooperative. Behavior: [Patient is calmly seated without any agitated behavior. mildly bizarre, mildly improving Speech: Patient's speech is fluent and nonpressured. soft tone. flight of ideas, mildly improved Mood/Affect: Mood is ok, affect is congruent and constricted. Suicidality/Homicidality: Patient denies having any suicidal or homicidal ideation intent or plan. Perceptions: Patient denies any visual hallucinations and denies any auditory hallucinations Though content/process: There is no evidence of any delusional thought content and thought process unable to assess. concrete. flight of ideas Memory and concentration: AOX3, grossly intact for the purposes of this session Judgment and insight: poor Assessment Schizophrenia Cannabis use disorder Plan: -Patient is admitted under involuntary status to MHU for stabilization of psychiatric symptoms and safety. Patient has not signed adult voluntary form or medication consent and is placed in patient's chart. -Medications :cogentin 0.5 mg bid for EPS symptome, prolixin 5 mg bid for psychosis. will plan on transitioning to AKERS to ensure compliance prior to dc. patient is now refusing medications. -Ativan and Haldol PRN for agitation/aggression -NRT -not needed as patient does not smoke -SW on board for discharge planning. Encourage patient to participate in groups to work on coping skills. Patient deferred with ip attorney however was non compliant with meds afterwards and a demand was filed. Hearing date set for June 08.
[2024-06-04 09:23] LABS: Appearance,Urine Clear (Clear); Bacteria,Urine Rare /hpf; Bilirubin,Urine Negative (Negative); Blood,Urine Negative (Negative); Color,Urine Colorless; Glucose,Urine (UA) Negative (Negative); Ketones,Urine Negative (Negative); Leukocyte Esterase,Urine Moderate (Negative); Mucus,Urine Rare /hpf; Nitrite,Urine Negative (Negative); PH, Urine 6.5 (5.0-8.0); Protein,Urine Negative (Negative); RBC,Urine <1 /hpf (0-5); Specific Gravity,Urine 1.015 (1.001-1.035); Squamous Epithelial Cell,Urine <1 /hpf (0-4); Urobilinogen,Urine <2.0 mg/dL (<2.0); WBC,Urine 12 /hpf (0-5)
--- NOTE | 2024-06-04 19:01 | P.PN ---
Progress Note - Text Progress Note Date: 06/04/24 Interval history: Patient was seen wandering the hallways, smiling to himself, appears somewhat intrusive. He appears to be attending to internal stimuli and appears to be an unreliable historian. He refused both doses of his oral Prolixin and Cogentin yesterday but took his morning doses today. At this time patient denies any suicidal or homicidal ideation, intent or plan. He claims he does not hear voices but appears to be attending to internal stimuli. Patient denies any side effects from the medications. He is aware he has a court date on 06/08. Mental status exam: General Appearance: Patient appears to be stated age, fair hygiene/grooming Behavior: No agitated behavior. Patient is calm and directable. Speech: Patient's speech is fluent and non-pressured. Mood/Affect: Mood is good, affect is congruent, smiling inappropriately Suicidality/Homicidality: Patient denies having any suicidal or homicidal ideation intent or plan. Perceptions: Patient denies any auditory or visual hallucinations, but appears to be attending to internal stimuli. Though content/process: There is no evidence of any delusional thought content and thought process is linear and goal-directed. Memory and concentration: AOX3, grossly intact for the purposes of this session Judgment and insight: poor Assessment/Plan: Continue with current diagnosis. Patient continues to meet criteria for inpatient psychiatric admission for symptom stabilization and safety. Will continue Prolixin 5 mg BID for psychosis since he had refused both doses yesterday and resumed it this morning. He will need a AKERS due to noncompliance with oral meds. He has a court date on 06/08. Monitor for medication compliance and for any psychotropic medication side effects. Will continue to monitor ongoing response to treatment. Encouraged participation in milieu.
--- NOTE | 2024-06-05 21:52 | P.PN ---
Progress Note - Text Progress Note Date: 06/05/24 Interval history: Patient was seen wandering the hallways, smiling to himself again today. He is social with peers. He refused his PM doses of Prolixin and Cogentin last night. He received Haldol 5 mg po x 1 and Ativan 1 mg po x1 for psychosis and anxiety last night. At this time patient denies any suicidal or homicidal ideation, intent or plan. He claims he does not hear voices but appears to be internally preoccupied and smiling to himself most of the time. Insight into his mental illness remains poor. Patient denies any side effects from the medications. He is aware he has a court date on 06/08. Mental status exam: General Appearance: Patient appears to be stated age, fair hygiene/grooming Behavior: No agitated behavior. Patient is calm and directable. Social with peers, smiles to himself most of the day. Speech: Patient's speech is fluent and non-pressured. Mood/Affect: Mood is good, affect is congruent, smiling inappropriately Suicidality/Homicidality: Patient denies having any suicidal or homicidal ideation intent or plan. Perceptions: Patient denies any auditory or visual hallucinations, but appears to be attending to internal stimuli. Though content/process: There is no evidence of any delusional thought content and thought process is linear and goal-directed. Memory and concentration: AOX3, grossly intact for the purposes of this session Judgment and insight: poor Assessment/Plan: Continue with current diagnosis. Patient continues to meet criteria for inpatient psychiatric admission for symptom stabilization and safety. Will continue Prolixin 5 mg BID for psychosis and continue to encourage compliance with medications. He will need a AKERS due to noncompliance with oral meds. He has a court date on 06/08. Monitor for medication compliance and for any psychotropic medication side effects. Will continue to monitor ongoing response to treatment. Encouraged participation in milieu.
--- NOTE | 2024-06-06 19:04 | P.PN ---
Progress Note - Text Progress Note Date: 06/06/24 Interval history: Patient was seen wandering the hallways during the days. This afternoon he was seen sitting alone at the table in the hallway. On evaluation he appears irritable and attending to internal stimuli. He is not agreeable to speak with this technical writer and editor and states "why do you always show up at the worst time?" When asked what he is referring to, he mumbles an incoherent response. This is a significant change in mood as compared to previous days when he was smiling most of the day and social on the unit. Last night, patient punched the wall near the patient phone gonsales a couple hours after receiving his Prolixin 5 mg bedtime dose. He required Haldol 5 mg IM x1 and Ativan 2 mg IM x1. He appears to have a better response to po/IM Haldol than po Prolixin. Responses to questions about SI/HI and AVH are incoherent. Interview was terminated in order to avoid escal ating patient. He is being monitored for cheeking by nursing and appears to be compliant with medications currently. Mental status exam: General Appearance: Patient appears to be stated age, fair hygiene/grooming Behavior: He punched the wall on the unit yesterday night; required PRN meds. He appears withdrawn, irritable, does not want to engage in assessment. Speech: Patient's speech is fluent and non-pressured. Mood/Affect: Mood is irritable, affect is congruent, constricted. Suicidality/Homicidality: Not able to fully assess today due to lack of cooperation. Perceptions: Not able to fully assess today due to lack of cooperation, but appears to be attending to internal stimuli. Though content/process: Not able to fully assess today due to lack of cooperation. Responses are mumbled. Memory and concentration: Alert and oriented to person, place, Not able to fully assess time due to lack of cooperation. Judgment and insight: poor Assessment/Plan: Continue with current diagnosis. Patient continues to meet criteria for inpatient psychiatric admission for symptom stabilization and safety. Discontinue Prolixin. Start Haldol 5 mg TID starting tonight for psychosis and titrate to effective dose with plan to transition to Haldol decanoate. Monitor for EPS/TD. Continue Cogentin 0.5 mg BID for EPS prophylaxis. Adjust as needed. Monitor for medication compliance and for any psychotropic medication side effects. Will continue to monitor ongoing response to treatment. Encouraged participation in milieu.
[2024-06-06] MEDS: haloperidoL 5 MG TAB PO SCH (21:45)
--- NOTE | 2024-06-07 14:59 | P.PN ---
Progress Note - Text Progress Note Date: 06/07/24 Interval History: Patient banged loudly on the office door and requested to speak with financial underwriter. He was subsequently agreeable to speak with financial underwriter in the office. He discussed his concerns with being in the hospital and his feelings that this was preventing him from doing the things he needed to get done. When asked about these he shared that he just needs to "move forward" though no specifics were shared. He reported feeling "okay." He clearly stated he did not feel he needed medication and didn't know why he needed to remain in the hospital. He later showed a list of goals which included items about getting his truck moved, moving back to [place], and exercising more. When asked about his mental health he did not feel there were any concerns or needs. At this time patient denies any suicidal or homicidal ideations, intent or plan. Patient denies any auditory, visual hallucinations and denies any paranoia or delusions. Patient denies any side effects from the medications and has been very intermittent in regards to medication adherence. He has required oral PRNs for agitation. Mental Status Exam: General Appearance: [Patient appears to be stated age is alert, directable, and cooperative.] Behavior: [Patient is calmly seated without any agitated behavior.] Speech: Patient's speech is fluent and nonpressured. Very little variation in tone. Conversational volume. Mood/Affect: Mood is "okay", affect is congruent and constricted. Suicidality/Homicidality: Patient denies having any suicidal or homicidal ideation intent or plan. Perceptions: Patient denies any visual hallucinations [and denies any auditory hallucinations] Though content/process: Paucity of thought. Generally unable to expound on details. Memory and concentration: AOX3, grossly intact for the purposes of this session Judgment and insight: Poor; no insight about mental health condition Assessment Linda Castaneda is a 24 year old with a history of Schizophrenia and Cannabis use disorder presently admitted for stabilization and treatment. He was recently transitioned to Haldol 5mg TID as he seemed to respond more positively to PRN doses of this medication than to previously scheduled Prolixin. This was also secondary to adherence concerns and anticipation of a AKERS in the future. At present, Linda continues to lack insight about his mental health or circumstances that prompted admission or the need for ongoing psychiatric care. Given his very intermittent adherence to treatment while inpatient it seems unlikely he will remain connected outpatient care after discharge, in his current condition. He has a hearing tomorrow re: court ordered treatment. Plan: -Patient continues to meet criteria for inpatient psychiatric admission for symptom stabilization and safety. -Medications: - Continue Haldol 5 mg TID with plans to ideally transition to Haldol dec - Continue Cogentin 0.5 mg BID; will continue to monitor for EPS and TD -When necessary Ativan and Haldol for agitation/aggression. -NRT - available if needed -SW on board for discharge planning. Encouraged the patient to participate in milieu.
--- NOTE | 2024-06-08 15:34 | P.PN ---
Progress Note - Text Progress Note Date: 06/08/24 Interval History: Patient was seen in the anders and was directable and agreeable to speak with wr iter in the office. He did not have any events or issues overnight. He described his mood as "neato" today. When asked more about this he said that he was just feeling good today. He explained that some of his future plans are on hold and he has been dealing with the frustration of that but feels he is managing it. He notes that his appetite is increased and his energy is up-and-down. He has been sleeping well overall. He denies experiencing anxiety or excessive worry. When asked how he was feeling about engaging in mental health treatment he said that his perspective remains that the medications are not helpful and he is not in need of treatment. At this time patient denies any suicidal or homicidal ideations, intent or plan. Patient denies any auditory, visual hallucinations and denies any paranoia or delusions. Patient denies any side effects from the medications and has been compliant with meds. Mental Status Exam: General Appearance: Patient appears to be stated age is alert, directable, and cooperative. Behavior: Patient is calmly seated without any agitated behavior. Speech: Patient's speech is fluent and nonpressured. Mood/Affect: Mood is improving mildly, affect is congruent and constricted though more euthymic than yesterday. Suicidality/Homicidality: Patient denies having any suicidal or homicidal ideation intent or plan. Perceptions: Patient denies any visual hallucinations and denies any auditory hallucinations Though content/process: There is no evidence of any delusional thought content and thought process is linear and goal-directed. Memory and concentration: AOX3, grossly intact for the purposes of this session Judgment and insight: Poor Assessment Linda Castaneda is a 24 year old with a history of Schizophrenia and Cannabis use disorder presently admitted for stabilization and treatment. He was recently transitioned to Haldol 5mg TID as he seemed to respond more positively to PRN doses of this medication than to previously scheduled Prolixin. This was also secondary to adherence concerns and anticipation of a AKERS in the future. His demand hearing was postponed from this morning to next Friday 06/15 due to burlapper not being available. Linda has taken his medication in the last 24 hours but continues to lack insight about his psychiatric diagnoses and the need for ongoing treatment. - Schizophrenia - Cannabis use disorder Plan: -Patient continues to meet criteria for inpatient psychiatric admission for symptom stabilization and safety. Presently admitted under involuntary status. -Medications: - Continue Haldol 5 mg TID with plans to ideally transition to Haldol dec - Continue Cogentin 0.5 mg BID; will continue to monitor for EPS and TD -When necessary Ativan and Haldol for agitation/aggression. -NRT - available if needed -SW on board for discharge planning. Encouraged the patient to participate in milieu.
--- NOTE | 2024-06-09 11:21 | P.PN ---
Progress Note - Text Progress Note Date: 06/09/24 Interval History: Patient knocked on the door calmly and requested to be seen. An extensive conv ersation ensued during which he shared his reasons for wanting to be discharged. He feels he doesn't need to be in the hospital and has "responsibilities" he needs to address. Attempted to ask more questions about his home life and social support which he declined to answer, saying that these things are private. Attempted to explore his understanding of the reason for hospitalization and treatment. He felt he "shouldn't have come in here to get some food. That wasn't a reason to come". He does not feel he needs medication and generally expressed repeatedly that he is in a good place and doing fine and ready to leave the hospital. When asked about his mood he said it was "neutral". Of note last evening he got very agitated regarding discharge and with verbal redirection and support was able to take some oral medication to help him restore calm. Again this morning he started to shake the med window door and was demanding to leave the hospital. At this time patient denies any suicidal or homicidal ideations, intent or plan. Patient denies any auditory, visual hallucinations and denies any paranoia or delusions. Patient denies any side effects from the medications and has been compliant with meds. Mental Status Exam: General Appearance: Patient appears to be stated age is alert, directable, and cooperative. Behavior: Patient is calmly seated without any agitated behavior. Speech: Patient's speech is fluent and nonpressured. Mood/Affect: Mood is "neutral", affect is congruent and constricted. Appears determined. Suicidality/Homicidality: Patient denies having any suicidal or homicidal ideation intent or plan. Perceptions: Patient denies any visual hallucinations and denies any auditory hallucinations Though content/process: There is no evidence of any delusional thought content and thought process is linear and goal-directed. Memory and concentration: AOX3, grossly intact for the purposes of this session Judgment and insight: Poor Assessment Linda Castaneda is a 24 year old with a history of Schizophrenia and Cannabis use disorder presently admitted for stabilization and treatment. He was recently transitioned to Haldol 5mg TID as he seemed to respond more positively to PRN doses of this medication than to previously scheduled Prolixin. This was also secondary to adherence concerns and anticipation of a AKERS in the future. Linda has had two outbursts in the last 24 hours related to his demands for discharge. He has taken his medication in the last 24 hours but continues to lack insight about his psychiatric diagnoses and the need for ongoing treatment. - Schizophrenia - Cannabis use disorder Plan: -Patient continues to meet criteria for inpatient psychiatric admission for symptom stabilization and safety. Presently admitted under involuntary status. Hearing scheduled for 06/15. -Medications: - Continue Haldol 5 mg TID with plans to ideally transition to Haldol dec - Continue Cogentin 0.5 mg BID; will continue to monitor for EPS and TD -When necessary Ativan and Haldol for agitation/aggression. -NRT - available if needed -SW on board for discharge planning. Encouraged the patient to participate in milieu.
--- NOTE | 2024-06-10 12:35 | P.PN ---
Progress Note - Text Progress Note Date: 06/10/24 Interval History: Patient was seen wandering the hallway today. He was agreeable to speak to [facility] today. He initially appeared to be fairly calm and collected, spoke about his medications, he has been taking them since yesterday. He is denying any side effects or problems with it. Patient appears to have very limited insight and very superficial. He denies any anxiety or depression at this time. He was fairly focused on discharge later on in the conversation and then became more paranoid and believes that there was cameras and other devices in his room recording him. He also accused credit underwriter of doing "experiments on me". He claims that he is going to refuse medications. Research Statistician attempted to speak with him about his rights mental health code and also the court process and patient continued to speak about "a 72 hour hold" and was demanding discharge and did not appear to comprehend. At this time patient denies any suicidal or homicidal ideations, intent or plan. Patient denies any auditory, visual hallucinations. Patient states that he will start refusing medications. Patient also threatened to be violent/homicidal if there was a "altercation". Mental Status Exam: General Appearance: Patient appears to be short in stature, wearing a hoodie, wearing glasses, stated age is alert, paranoid uncooperative Behavior: Patient is walking in the hallway, initially cooperative however fairly bizarre and paranoid. Speech: Patient's speech is fluent and nonpressured. Demanding tone Mood/Affect: Mood is "ok", affect is congruent and constricted. Suicidality/Homicidality: Patient denies having any suicidal or homicidal ideation intent or plan. Perceptions: Patient denies any visual hallucinations and denies any auditory hallucinations Though content/process: Illogical, bizarre content, paranoid Memory and concentration: AOX3, grossly intact for the purposes of this session Judgment and insight: Poor Assessment Schizophrenia Cannabis use disorder Plan: -Patient continues to meet criteria for inpatient psychiatric admission for symptom stabilization and safety. Presently admitted under involuntary status -Medications: -Increase Haldol 10 mg BID with plans to ideally transition to Haldol dec -Increase Cogentin 1 mg BID; will continue to monitor for EPS and TD -Added lithium 300 mg nightly for mood stabilization. -When necessary Ativan and Haldol for agitation/aggression. -NRT - available if needed -SW on board for discharge planning. Encouraged the patient to participate in milieu. Awaiting court hearing scheduled for 06/15
[2024-06-10] MEDS: LITHIUM CARBONATE 300 MG CAP PO SCH (21:34)
[2024-06-10] MEDS: haloperidoL 5 MG TAB PO SCH (21:35)
[2024-06-10] MEDS: BENZTROPINE MESYLATE 1 MG TAB PO SCH (21:35)
--- NOTE | 2024-06-11 11:32 | P.PN ---
Subjective Progress Note Date: 06/11/24 Patient Name: Alexx Castaneda Date of : [birth year] Patient Status: Inpatient Attending Provider: Filiberto Pearce Date: 06/11/24 Initialization Date: 06/10/24 08:48 Subjective data: Patient was seen wandering the hallway today. He was agreeable to speak to medical underwriter today. He initially appeared to be fairly calm and collected, Patient reports that he came to the hospital because he was hungry Patient states that he has a place to live but did not have anything to eat . Patient appears to have very limited insight and very superficial. He denies any anxiety or depression at this time. Patient also feels that his behavior is being recorded Patient remains projective and suspicious Mental Status Exam: Unchanged General Appearance: Patient appears to be short in stature, wearing a hoodie, wearing glasses, stated age is alert, paranoid uncooperative Behavior: Patient is walking in the hallway, initially cooperative however fairl y bizarre and paranoid. Speech: Patient's speech is fluent and nonpressured. Demanding tone Mood/Affect: Mood is "ok", affect is congruent and constricted. Suicidality/Homicidality: Patient denies having any suicidal or homicidal ideation intent or plan. Perceptions: Patient denies any visual hallucinations and denies any auditory hallucinations Though content/process: Illogical, bizarre content, paranoid Memory and concentration: AOX3, grossly intact for the purposes of this session Judgment and insight: Poor Assessment Schizophrenia Cannabis use disorder Plan: Agree with the current treatment plan -Patient continues to meet criteria for inpatient psychiatric admission for symptom stabilization and safety. Presently admitted under involuntary status -Medications: -Haldol 10 mg BID with plans to ideally transition to Haldol dec Cogentin 1 mg BID; will continue to monitor for EPS and TD [place] 300 mg nightly for mood stabilization. -When necessary Ativan and Haldol for agitation/aggression. -NRT - available if needed -SW on board for discharge planning. Encouraged the patient to participate in milieu. Awaiting court hearing scheduled for 06/15 Malick Fish MD Objective - Vital Signs Vital signs: Vital Signs Temp 97.9 F 06/07/24 06:26 Pulse 79 06/07/24 06:26 Resp 16 06/07/24 06:26 BP 114/69 06/07/24 06:26 Pulse Ox 99 06/07/24 06:26 FiO2 - Labs CBC & Chem 7: 05/25/24 08:08 05/25/24 08:08
[2024-06-12 07:25] VITALS: TEMP 98
--- NOTE | 2024-06-12 09:27 | P.PN ---
Subjective Progress Note Date: 06/12/24 Patient Name: Alexx Castaneda Date of : [birth year] Patient Status: Inpatient Attending Provider: Filiberto Pearce Date: 06/12/24 Initialization Date: 06/10/24 08:48 Subjective data: Patient was seen wandering the hallway today. He was agreeable to speak to mortgage loan underwriter today. Patient however gives bizarre answers and states that life is supposed to be exquisite . Patient appears to have very limited insight and very superficial. He denies any anxiety or depression at this time. Patient also feels that his behavior is being recorded Patient remains projective and suspicious Mental Status Exam: Unchanged General Appearance: Patient appears to be short in stature, wearing a hoodie, wearing glasses, stated age is alert, paranoid uncooperative Behavior: Patient is walking in the hallway, initially cooperative however fairly bizarre and paranoid. Speech: Patient's speech is fluent and nonpressured. Demanding tone Mood/Affect: Mood is "ok", affect is congruent and constricted. Suicidality/Homicidality: Patient denies having any suicidal or homicidal ideation intent or plan. Perceptions: Patient denies any visual hallucinations and denies any auditory hallucinations Though content/process: Illogical, bizarre content, paranoid Memory and concentration: AOX3, grossly intact for the purposes of this session Judgment and insight: Poor Assessment Schizophrenia Cannabis use disorder Plan: Agree with the current treatment plan -Patient continues to meet criteria for inpatient psychiatric admission for symptom stabilization and safety. Presently admitted under involuntary status -Medications: -Haldol 10 mg BID with plans to ideally transition to Haldol dec Cogentin 1 mg BID; will continue to monitor for EPS and TD [place] 300 mg nightly for mood stabilization. -When necessary Ativan and Haldol for agitation/aggression. -NRT - available if needed -SW on board for discharge planning. Encouraged the patient to participate in milieu. Awaiting court hearing scheduled for 06/15 Malick Fish MD Objective - Vital Signs Vital signs: Vital Signs Temp 98 F 06/12/24 07:01 Pulse 91 06/12/24 07:01 Resp 16 06/12/24 07:01 BP 110/73 06/12/24 07:01 Pulse Ox 100 06/12/24 07:01 FiO2 - Labs CBC & Chem 7: 05/25/24 08:08 05/25/24 08:08
--- NOTE | 2024-06-13 12:07 | P.PN ---
Progress Note - Text Progress Note Date: 06/13/24 Interval History: Patient was seen in his room today, and agreeable to speak with radio script writer at the bedside. Initially, the patient stated he did not want to talk today, as radio script writer was walking out of the room, the patient woke up, and called radio script writer back to the bedside. He was talking about wanting to be discharged. This patient has been explained the court process multiple times, by multiple staff, and radio script writer reiterated that we had to wait for the hearing on 06/15. The patient was much calmer today, and stated that his dream was to be a rapper. He states that he is sleeping well at night, and his appetite is fair. continues to be paranoid. At this time patient denies any suicidal or homicidal ideations, intent or plan. Patient denies any auditory, visual hallucinations. Patient also threatened to be violent/homicidal if he was provoked. After the interview concluded, the patient came to the office and said, "I know this sitcom, why you playing with me? I want to go home, and I will go home" Hearse Driver once again explained that we have to wait until his hearing this Thursday. Patient then walked away from the door. Mental Status Exam: General Appearance: Patient appears to be short in stature, wearing a hoodie, wearing glasses, stated age is alert, fairly cooperative. Behavior: Patient is standing in his room at the bedside, initially cooperative however fairly bizarre and paranoid. Speech: Patient's speech is fluent and nonpressured. Demanding tone Mood/Affect: Mood is "I want to go home", affect is congruent and constricted. Suicidality/Homicidality: Patient denies having any suicidal or homicidal ideation intent or plan. Perceptions: Patient denies any visual hallucinations and denies any auditory hallucinations Though content/process: Illogical, bizarre content, paranoid, focused on discharge. Memory and concentration: AOX3, grossly intact for the purposes of this session Judgment and insight: Poor Assessment Schizophrenia Cannabis use disorder Plan: -Patient continues to meet criteria for inpatient psychiatric admission for symptom stabilization and safety. Presently admitted under involuntary status -Medications: - Haldol 10 mg BID with plans to ideally transition to Haldol dec - Cogentin 1 mg BID; will continue to monitor for EPS and TD - lithium 300 mg nightly for mood stabilization. -When necessary Ativan and Haldol for agitation/aggression. -NRT - available if needed -SW on board for discharge planning. Encouraged the patient to participate in milieu. Awaiting court hearing scheduled for 06/15
[2024-06-13] MEDS: LITHIUM CARBONATE ER 450 MG TABLET.ER PO SCH (21:53)
--- NOTE | 2024-06-14 11:40 | P.PN ---
Progress Note - Text Progress Note Date: 06/14/24 Interval History: Patient was seen wandering the hallways today. He was agreeable to speak to wr leilani. He was smiling today, he answered most questions appropriately. He continues to be fairly concrete, less delusional today. Less paranoid and agitated as well. Claims that he slept fairly last night he continues to have very poor insight and judgment. We spoke briefly about the court process and that he will have a hearing tomorrow. He claims that "the panel lay up worker will not have anything to talk to me about because I did not do anything wrong". He continues to have poor understanding of the court process and being in the hospital. He began refusing medications yesterday in the evening. Claims that his appetite is fair, sleep has been fair, denying any auditory or visual hallucinations. Denying any suicidal homicidal ideations intent or plan. Mental Status Exam: General Appearance: Patient appears to be short in stature, wearing glasses, stated age is alert, superficially cooperative. Behavior: Patient is standing in his room at the bedside, initially cooperative however fairly less bizarre Speech: Patient's speech is fluent and nonpressured. Soft tone Mood/Affect: Mood is "ok", affect is congruent and constricted. Suicidality/Homicidality: Patient denies having any suicidal or homicidal ideation intent or plan. Perceptions: Patient denies any visual hallucinations and denies any auditory hallucinations Though content/process: More concrete today, not endorsing delusions or paranoia, focused on discharge. Memory and concentration: AOX3, grossly intact for the purposes of this session Judgment and insight: Poor/superficial Assessment Schizophrenia Cannabis use disorder Plan: -Patient continues to meet criteria for inpatient psychiatric admission for symptom stabilization and safety. Presently admitted under involuntary status -Medications: - Haldol 10 mg BID with plans to ideally transition to Haldol dec - Cogentin 1 mg BID; will continue to monitor for EPS and TD - lithium 450 mg nightly for mood stabilization. -When necessary Ativan and Haldol for agitation/aggression. -NRT - available if needed -SW on board for discharge planning. Encouraged the patient to participate in milieu. Awaiting court hearing scheduled for 06/15. Patient is now refusing medications.
[2024-06-15] MEDS ORDERED: diphenhydrAMINE 50 MG CAP PO PRN (10:20)
[2024-06-15] MEDS ORDERED: diphenhydrAMINE 50 MG/ML 1 ML VIAL IM PRN (10:20)
--- NOTE | 2024-06-15 10:25 | P.PN ---
Progress Note - Text Progress Note Date: 06/15/24 Interval History: Patient was seen wandering the hallways today. Patient had court earlier this morning. Patient continues to be fairly confrontational, banging on ad copy writer's door frequently and demanding discharge. Patient continues to have very poor insight and judgment. He continues to endorse paranoia about others and wanting to keep him in the hospital. He made several bizarre comments and believes that ad copy writer is "twisting your words". He did display mild irritability, unable to be directable during conversation argumentative. Security was called for safety as ad copy writer spoke with patient today due to patient's impulsivity and history of aggression. Claims that he did not sleep well last night. He believes that the automation and control engineer ordered him to be "discharged" and to take medications and go to [facility]. Claims that his appetite is fair, denying any auditory or visual hallucinations. Denying any suicidal homicidal ideations intent or plan. Mental Status Exam: General Appearance: Patient appears to be short in stature, wearing glasses, stated age is alert, uncooperative today. Behavior: Patient is standing in his room at the bedside, demanding discharge, argumentative Speech: Patient's speech is fluent and nonpressured. Demanding Mood/Affect: Mood is "ok", affect is congruent and constricted. Suicidality/Homicidality: Patient denies having any suicidal or homicidal ideation intent or plan. Perceptions: Patient denies any visual hallucinations and denies any auditory hallucinations Though content/process: More concrete today, nursing paranoia, focused on discharge. Memory and concentration: AOX3, grossly intact for the purposes of this session Judgment and insight: very Poor/superficial Assessment Schizophrenia Cannabis use disorder Plan: -Patient continues to meet criteria for inpatient psychiatric admission for symptom stabilization and safety. Presently admitted under involuntary status -Medications: increase Haldol 10 mg BID + 2.5 mg at 1pm for psychosis with plans to ideally transition to Haldol dec, Cogentin 1 mg BID; will continue to monitor for EPS and TD, lithobid 450 mg nightly for mood stabilization. added seroquel 25 mg qhs for sleep/mood stabilization/psychosis. -When necessary Ativan and Haldol and benadryl prn for agitation/aggression. -NRT - available if needed -SW on board for discharge planning. Encouraged the patient to participate in milieu. Patient is court ordered for mental health treatment on 06/15
[2024-06-15] MEDS: haloperidoL 5 MG TAB PO SCH (14:46)
[2024-06-15] MEDS: QUEtiapine 25 MG TAB PO SCH (21:30)
[2024-06-16] MEDS ORDERED: HALOPERIDOL LACTATE 5 MG/ML 1 ML VIAL IM PRN (12:05)
--- NOTE | 2024-06-16 12:22 | P.PN ---
Progress Note - Text Progress Note Date: 06/16/24 Interval History: Patient was seen wandering the hallways today. He was agreeable to have a calm conversation with the scientific writer today in the lounge. Patient was much calmer today, than previously. He was less argumentative, and stated he would do his part in getting his treatment. He has been taking his medication, and denying any side effects from them. He started talking about having a child in [place], but then stated that he did not want to talk about it anymore, and just wanted to talk ab out him. He claims to have spoke with his dad about getting a safety plan together for discharge. He claims that he did not sleep well last night. He denying any auditory or visual hallucinations. Denying any suicidal/homicidal ideations intent or plan. Mental Status Exam: General Appearance: Patient appears to be short in stature, wearing glasses, stated age is alert, more cooperative today. Behavior: Patient is seated in the lounge, without agitation. Speech: Patient's speech is fluent and nonpressured. Mood/Affect: Mood is "ok", affect is congruent and constricted. Suicidality/Homicidality: Patient denies having any suicidal or homicidal ideation intent or plan. Perceptions: Patient denies any visual hallucinations and denies any auditory hallucinations Though content/process: mildly improving Memory and concentration: AOX3, grossly intact for the purposes of this session Judgment and insight: very Poor/superficial, mildly improving Assessment Schizophrenia Cannabis use disorder Plan: -Patient continues to meet criteria for inpatient psychiatric admission for symptom stabilization and safety. Presently admitted under involuntary status -Medications: Haldol 10 mg BID + 2.5 mg at 1pm for psychosis with plans to ideally transition to Haldol dec, Cogentin 1 mg BID; will continue to monitor for EPS and TD, lithobid 450 mg nightly for mood stabilization. increase seroquel 50 mg qhs for sleep/mood stabilization/psychosis. -When necessary Ativan and Haldol and benadryl prn for agitation/aggression. -NRT - available if needed -SW on board for discharge planning. Encouraged the patient to participate in milieu. Patient is court ordered for mental health treatment on 06/15. possible discharge next week if patient is improving and transitioned onto AKERS.
[2024-06-16] MEDS: ACETAMINOPHEN TAB 325 MG TAB PO PRN (12:36)
[2024-06-16 14:39] VITALS: BMI 25.5
[2024-06-16] MEDS: QUEtiapine 50 MG TAB PO SCH (20:36)
--- NOTE | 2024-06-17 11:26 | P.PN ---
Progress Note - Text Progress Note Date: 06/17/24 Interval History: Patient was seen in his room today. He was agreeable to have a conversation with the senior underwriter today . Motor Express Clerk spoke with patient about transitioning onto a AKERS. The patient was hesitant at first, then agreeable, then refused the injection. He stated he would rather just stay here, than to get a shot. He lacks insight into his treatment plan, and stated "I'll just stay here, you can't keep me forever, this is just temporary. I'll take my pills." Motor Express Clerk tried explaining the bene fits of the AKERS, patient still refused. Patient states that he slept well last night, and that his appetite is good. Patient was cooperative with this assessment, and was smiling during the interview. . He has been taking his medication, and denying any side effects from them. He denying any auditory or visual hallucinations. Denying any suicidal/homicidal ideations intent or plan. Mental Status Exam: General Appearance: Patient appears to be short in stature, wearing glasses, stated age is alert, more cooperative today. Behavior: Patient is standing in his room, without agitation. Speech: Patient's speech is fluent and nonpressured. Mood/Affect: Mood is "good", affect is congruent and constricted. mildly improving Suicidality/Homicidality: Patient denies having any suicidal or homicidal ideation intent or plan. Perceptions: Patient denies any visual hallucinations and denies any auditory hallucinations Though content/process: mildly improving Memory and concentration: AOX3, grossly intact for the purposes of this session Judgment and insight: very Poor/superficial, mildly improving Assessment Schizophrenia Cannabis use disorder Plan: -Patient continues to meet criteria for inpatient psychiatric admission for symptom stabilization and safety. Presently admitted under involuntary status -Medications: decrease Haldol 5mg BID for psychosis , last dose Thursday night 06/19 as patient is being transitioned onto AKERS. Cogentin 1 mg BID; will continue to monitor for EPS and TD, lithobid 450 mg nightly for mood stabilization. seroquel 50 mg qhs for sleep/mood stabilization/psychosis. Add Haldol Dec IM 100mg today, 06/17, Second dose Haldol Dec 100mg IM Thursday, 06/20, then every 21 days, with the third dose being 07/11/24 -When necessary Ativan and Haldol and benadryl prn for agitation/aggression. -NRT - available if needed -SW on board for discharge planning. Encouraged the patient to participate in milieu. Patient is court ordered for mental health treatment on 06/15. possible discharge next week if patient is improving and transitioned onto AKERS.
[2024-06-17] MEDS: haloperidoL 1 MG TAB PO ONE (12:31)
[2024-06-17] MEDS: HALOPERIDOL DECANOATE 100 MG/ML 1 ML VIAL IM ONE (16:07)
[2024-06-17] MEDS: haloperidoL 5 MG TAB PO SCH (20:46)
--- NOTE | 2024-06-18 15:53 | P.PN ---
Progress Note - Text Interval History: Denies agitated, SI, HI, AVH, med side effects Mental Status Exam: General Appearance: Patient appears to be short in stature, wearing glasses, Behavior: cooperative Speech: Patient's speech is fluent and nonpressured. Mood/Affect: Mood is "good", affect is congruent and constricted. mildly improving Suicidality/Homicidality: Patient denies having any suicidal or homicidal ideation intent or plan. Perceptions: Patient denies any visual hallucinations and denies any auditory hallucinations Though content/process: mildly improving Memory and concentration: AOX3, grossly intact for the purposes of this session Judgment and insight: very Poor/superficial, mildly improving Assessment Schizophrenia Cannabis use disorder Plan: no changes
--- NOTE | 2024-06-19 14:17 | P.PN ---
Progress Note - Text Interval History: Patient was seen [wandering the hallways] and was directable and agreeable to speak with sheet writer. At this time patient denies any suicidal or homical ideations, intent or plan. Patient denies any auditory, visual hallucinations and denies any paranoia or delusions. Patient denies any side effects from the medications and has been compliant with meds. pertinent sing staff, patient has been threatening to hit the staff because he wants discharge. Mental Status Exam: General Appearance: [Patient appears to be stated age is alert, directable, and cooperative.] Behavior: [Patient is calm without any agitated behavior.] Speech: Patient's speech is fluent and nonpressured. Mood/Affect: Mood is improving mildly, affect is congruent and constricted. Suicidality/Homicidality: Patient denies having any suicidal or homicidal ideation intent or plan. Perceptions: Patient denies any visual hallucinations [and denies any auditory hallucinations] Though content/process: [There is no evidence of any delusional thought content and thought process is linear and goal-directed.] Memory and concentration: AOX3, grossly intact for the purposes of this session Judgment and insight: poor Assessment Schizophrenia, cannibis use disorder Plan: Continue current plan[]
[2024-06-20] MEDS ORDERED: HALOPERIDOL DECANOATE 100 MG/ML 1 ML VIAL IM STA (11:44)
--- NOTE | 2024-06-20 11:52 | P.PN ---
Progress Note - Text Progress Note Date: 06/20/24 Interval History: Patient was seen in the hallway. He was agreeable to have a conversation with the advertising writer today in the office. The patient states that he is doing good today. He is active on the unit, and has been attending groups. The patient was quite pleasant. He is focused on discharge. Imaging Services Director explained to the patient that the second dose of Haldol would have to be given today, and he would be discharged tomorrow.Patient states that he slept well last night, and that his appetite is good. Patient got increasingly agitated during the interview, because of the discharge plan. He was able to be redirected into maintaining his composure after advertising writer explained everything to him. He has been taking his medication, and denying any side effects from them. He denying any auditory or visual hallucinations. Denying any suicidal/homicidal ideations intent or plan. Mental Status Exam: General Appearance: Patient appears to be short in stature, wearing glasses, stated age is alert, more cooperative today. Behavior: Patient is seated in the chair, without agitation. Speech: Patient's speech is fluent and nonpressured. Mood/Affect: Mood is "good", affect is congruent and constricted. mildly improving Suicidality/Homicidality: Patient denies having any suicidal or homicidal ideation intent or plan. Perceptions: Patient denies any visual hallucinations and denies any auditory hallucinations Though content/process: mildly improving Memory and concentration: AOX3, grossly intact for the purposes of this session Judgment and insight: mildly improving Assessment Schizophrenia Cannabis use disorder Plan: -Patient continues to meet criteria for inpatient psychiatric admission for symptom stabilization and safety. Presently admitted under involuntary status -Medications:Cogentin 1 mg BID; will continue to monitor for EPS and TD, lithobid 450 mg nightly for mood stabilization. seroquel 50 mg qhs for sleep/mood stabilization/psychosis. given Haldol Dec IM 100mg today, 06/17, Second dose Haldol Dec 50mg IM Thursday, 06/20, then every 21 days, with the next dose being due on 07/08/24 of 150mg -When necessary Ativan and Haldol and benadryl prn for agitation/aggression. -lithium level - 0.3 on 06/20 -NRT - available if needed -SW on board for discharge planning. Encouraged the patient to participate in milieu. Patient is court ordered for mental health treatment on 06/15. Probable discharge set for tomorrow.
[2024-06-20] MEDS: HALOPERIDOL DECANOATE 50 MG/ML 1 ML VIAL IM STA (12:02)
[2024-06-21 07:12] VITALS: BP 124/86; PULSE 87; RESP 16
--- NOTE | 2024-06-21 10:01 | P.DS ---
Providers Date of admission: 05/24/24 20:34 Expected date of discharge: 06/21/24 Attending physician: Filiberto Pearce MD Consults: 05/24/24 20:44 Consult Physician Routine Consulting Provider: Rajan Sloan Consult Reason/Comments: H&P for mental health admission Do you want consulting provider notified?: Yes Primary care physician: Stated None - Discharge Diagnosis(es) (1) Schizophrenia Current Visit: No Status: Acute Priority: High (2) Cannabis use disorder Current Visit: Yes Status: Acute Priority: Medium Hospital Course: Admission HPI: Admission note was completed by narrative writer "Patient presented to the hospital on 05/24. As per EPS note, "Clinician met with Alexx in room #11 of the ED. Cl presented at the ER on via EMS after calling on themselves due to "being hungry." Cl was also reported to have been seen by police for a welfare check prior to EMS. Cl attempted to elope from ED prior to being seen. Cl presents guarded, soft spoken, refusing to answer questions, paranoid, and disorganized. Cl believes that they are " a strong leader for my brothers and sisters, as I am trying to stay out of the way, but they think I am doing this on purpose or tr patsy to mess them up." When asked who they/them were cl state "those that take my energy' Cl was often difficult to understand due to soft tone of their voice and selective mutism. Cl is reported to believe their sig other is . When asked about this cl responds "I don't know how many kids I have, I just know they are out there somewhere".Cl displaying odd behavior, i.e. being in ER bathroom for over 20 mins and heard responding to self out loud. When asked about this cl reports " People are trying to say I do much, so I'll stay out of the way." When asked to elaborate on this, cl stated " I think there are too many questions." Cl reports keeping to themselves and that they live with a roommate whom they have only known for a few months. " We don't talk like that, I stay to myself and hang out with [place]." Clinician was informed that this is cl's dog. When asked who [place] was, cl refused to answer. Cl was observed at this point responding to internal stimuli. Cl presents tangential, disorganized, ideas of reference, paranoid, anxious, loose associations. Cl is monotone in speech and has flat affect throughout assessment. Cl is observed responding to internal stimuli and talking out loud to themselves. " Today, narrative writer went to patients room to conduct the H&P. Corn Sheller was unable to awaken the patient enough to get appropriate answers. The patient appeared very sedated. Will attempt to conduct a more in depth interview tomorrow. patient apparently attempted to elope in the ER and received Prn medications for agitation. patient was fairly concrete, sedated. Knows his name and his current location. He claims that "I am not getting enough sleep" claims that he does not need psychiatric medications or to be hospitalized. Was asking about discharge. Claims that he is not taking psychiatric medications. Patient denies any suicidal or homicidal ideations intent or plan. At this time patient denies any auditory or visual hallucinations. Patient denies any flight of ideas racing thoughts and increased in goal directed behavior. Patient denies using recreational drugs, however, drug screen positive for marijuana." Hospital course: Upon admission to the unit patient was admitted involuntarily on a petition and certificate and a second certificate was completed and faxed with the courts. [Patient ended up signing a deferral however he demanded was filed shortly after due to patient being noncompliant with medications. Patient was issued a mental health court order for treatment on 06/15. patient was initially bizarre, isolative however with time and treatment he eventually got along well with other patients on the unit and followed unit protocol. Patient was compliant with the medications and denied any side effects throughout hospital course. Omega parry was started on Haldol and increased to a dose of 10 mg twice daily with 2.5 mg at lunchtime, he was transitioned onto Haldol Dec to help ensure compliance, given first dose of 100 mg on 06/17, second dose of 50 mg on 06/20, next dose will be doing q. 21 days on 07/08 at [facility] of 150 mg IM. Patient is also on Seroquel 50 mg nightly for mood stabilization/insomnia/psychosis adjunct, Cogentin 1 mg twice daily for EPS prophylaxis, Lithobid 450 mg nightly for mood stabilization. Patient spoke of his stressors and engaged in therapy both group and individual. Patient was also seen by medical team for history and physical exam. Throughout the course of the hospitalization patient gradually improved with regards to mood, anxiety, psychosis, delusions, paranoia, sleep and returned back to their baseline level of functioning. On the day of discharge patient denied any suicidal or homicidal ideations intent or plan denied any auditory or visual hallucinations. Patient endorsed wanting to live for his health and family. The patient denied any access to guns or weapons. Patient denied any paranoia and did not endorse any delusions. Patient does have a significant history of substance abuse and was counseled on abstaining from all substances including alcohol and marijuana. Patient elected to do outpatient substance use treatment program through [facility]. Patient was also counseled on the medications and need for regular compliance and was encouraged to follow-up with their outpatient appointment for mental health and also for primary care. Prior to discharge a family meeting will be arranged by family welfare social work professor to answer any questions and ensure safety upon discharge. Patient will be discharged back home today. Mental status exam: General Appearance: Patient appears to be short in stature, wearing glasses, stated age is alert, pleasant, and cooperative. Patient is in no acute distress and has improved hygiene and grooming Behavior: Patient is calmly seated without any agitated behavior. Speech: Patient's speech is fluent and nonpressured. Mood/Affect: Patient reports their mood is "good", affect is congruent Suicidality/Homicidality: Patient denies having any suicidal or homicidal ideation intent or plan. Perceptions: Patient denies any auditory or visual hallucinations. Though content/process: There is no evidence of any delusional thought content and thought process is linear and goal-directed. More future oriented Memory and concentration: AOX3, grossly intact for the purposes of this session. Can spell "WORLD" backwards correctly. Judgment and insight: Chronically poor, however has improved with guarded prognosis Impression: Schizophrenia Cannabis use disorder Plan: -Continue with discharge today as patient has improved and stabilized psychiatr ically and is not currently an imminent threat to himself and/or others. Patient will remain at chronically elevated risk for harm to self and/or others due to his impulsivity and polysubstance abuse. -Continue medications: Seroquel p.o. 50 mg nightly for psychosis adjunct/mood/insomnia, Haldol p.o. was titrated off. Patient was given a total of 150 mg IM of Haldol D on 7/22, next dose is due on 07/08 q3 weeks. Cogentin 1 mg twice daily for EPS prophylaxis, Lithobid 450 mg nightly for mood stabilization -Patient was counseled on the need for medication compliance and appropriate follow-up at mental health and also primary care for medical issues. Patient verbalized understanding and agreed. -Social work to arrange for and conduct family meeting to ensure safety upon discharge and answer any questions/concerns. Social work also to arrange for patients follow up appointments with [facility] for psychiatric care along with follow up with primary care provider. -Patient counseled on abstaining from recreational drugs and marijuana and alcohol. Was informed/educated on the adverse effects on their physical and mental health. Patient verbally agreed and understood. -Patient was instructed to return to the hospital or seek immediate medical care if their psychiatric or medical symptoms do worsen or reoccur. Allergies Allergy/AdvReac Type Severity Reaction Status Date / Time No Known Allergies Allergy Verified 05/24/24 22:29 Laboratory Results WBC 3.6 k/uL (3.8-10.6) L 05/25/24 08:08 RBC 4.94 m/uL (4.30-5.90) 05/25/24 08:08 Hgb 13.9 gm/dL (13.0-17.5) 05/25/24 08:08 Hct 45.0 % (39.0-53.0) 05/25/24 08:08 MCV 91.0 fL (80.0-100.0) 05/25/24 08:08 MCH 28.1 pg (25.0-35.0) 05/25/24 08:08 MCHC 30.9 g/dL (31.0-37.0) L 05/25/24 08:08 RDW 13.5 % (11.5-15.5) 05/25/24 08:08 Plt Count 250 k/uL (150-450) 05/25/24 08:08 MPV 7.7 05/25/24 08:08 Neutrophils % 58 % 05/25/24 08:08 Lymphocytes % 32 % 05/25/24 08:08 Monocytes % 5 % 05/25/24 08:08 Eosinophils % 2 % 05/25/24 08:08 Basophils % 1 % 05/25/24 08:08 Neutrophils # 2.1 k/uL (1.3-7.7) 05/25/24 08:08 Lymphocytes # 1.2 k/uL (1.0-4.8) 05/25/24 08:08 Monocytes # 0.2 k/uL (0-1.0) 05/25/24 08:08 Eosinophils # 0.1 k/uL (0-0.7) 05/25/24 08:08 Basophils # 0.0 k/uL (0-0.2) 05/25/24 08:08 Sodium 138 mmol/L (137-145) 05/25/24 08:08 Potassium 4.4 mmol/L (3.5-5.1) 05/25/24 08:08 Chloride 107 mmol/L (98-107) 05/25/24 08:08 Carbon Dioxide 26 mmol/L (22-30) 05/25/24 08:08 Anion Gap 5 mmol/L 05/25/24 08:08 BUN 15 mg/dL (9-20) 05/25/24 08:08 Creatinine 1.05 mg/dL (0.66-1.25) 05/25/24 08:08 Est GFR (CKD-EPI)AfAm >90 (>60 ml/min/1.73 sqM) 05/25/24 08:08 Est GFR (CKD-EPI)NonAf >90 (>60 ml/min/1.73 sqM) 05/25/24 08:08 Glucose 88 mg/dL (74-99) 05/25/24 08:[address] Glu mg/dL 111 mg/dL 05/25/24 08:08 Hemoglobin A1c 5.5 % (<=6.0) 05/25/24 08:08 Calcium 9.7 mg/dL (8.4-10.2) 05/25/24 08:08 Total Bilirubin 1.0 mg/dL (0.2-1.3) 05/25/24 08:08 AST 18 U/L (17-59) 05/25/24 08:08 ALT 12 U/L (4-49) 05/25/24 08:08 Alkaline Phosphatase 59 U/L (38-126) 05/25/24 08:08 Total Protein 6.8 g/dL (6.3-8.2) 05/25/24 08:08 Albumin 4.4 g/dL (3.5-5.0) 05/25/24 08:08 Triglycerides 39.70 mg/dL (0.00-149.00) 05/25/24 08:08 Cholesterol 171.00 mg/dL (0.00-200.00) 05/25/24 08:08 LDL Cholesterol, Calc 79.4 mg/dL (0.0-131.0) 05/25/24 08:08 VLDL Cholesterol, Calc 7.94 mg/dL (5.00-40.00) 05/25/24 08:08 HDL Cholesterol 83.70 mg/dL (40.00-60.00) H 05/25/24 08:08 Cholesterol/HDL Ratio 2.04 Ratio 05/25/24 08:08 TSH 3.790 mIU/L (0.465-4.680) 05/25/24 08:08 Urine Color Colorless 06/04/24 08:55 Urine Appearance Clear (Clear) 06/04/24 08:55 Urine pH 6.5 (5.0-8.0) 06/04/24 08:55 Ur Specific [place] 1.015 (1.001-1.035) 06/04/24 08:55 Urine Protein Negative (Negative) 06/04/24 08:55 Urine Glucose (UA) Negative (Negative) 06/04/24 08:55 Urine Ketones Negative (Negative) 06/04/24 08:55 Urine Blood Negative (Negative) 06/04/24 08:55 Urine Nitrite Negative (Negative) 06/04/24 08:55 Urine Bilirubin Negative (Negative) 06/04/24 08:55 Urine Urobilinogen <2.0 mg/dL (<2.0) 06/04/24 08:55 Ur Leukocyte Esterase Moderate (Negative) H 06/04/24 08:55 Urine RBC <1 /hpf (0-5) 06/04/24 08:55 Urine WBC 12 /hpf (0-5) H 06/04/24 08:55 Ur Squamous Epith Cells <1 /hpf (0-4) 06/04/24 08:55 Urine Bacteria Rare /hpf (None) H 06/04/24 08:55 Urine Mucus Rare /hpf (None) H 06/04/24 08:55 Urine Opiates Screen Not Detected (NotDetected) 05/24/24 10:10 Ur Oxycodone Screen Not Detected (NotDetected) 05/24/24 10:10 Urine Methadone Screen Not Detected (NotDetected) 05/24/24 10:10 Ur Barbiturates Screen Not Detected (NotDetected) 05/24/24 10:10 U Tricyclic Antidepress Not Detected (NotDetected) 05/24/24 10:10 Ur Phencyclidine Scrn Not Detected (NotDetected) 05/24/24 10:10 Ur Amphetamines Screen Not Detected (NotDetected) 05/24/24 10:10 U Methamphetamines Scrn Not Detected (NotDetected) 05/24/24 10:10 U Benzodiazepines Scrn Not Detected (NotDetected) 05/24/24 10:10 [place] 0.3 mmol/L 06/20/24 10:18 Urine Cocaine Screen Not Detected (NotDetected) 05/24/24 10:10 U Marijuana (THC) Screen Detected (NotDetected) H 05/24/24 10:10 Influenza Type A (PCR) Not Detected (Not Detectd) 05/24/24 18:35 Influenza Type B (PCR) Not Detected (Not Detectd) 05/24/24 18:35 RSV (PCR) Not Detected (Not Detectd) 05/24/24 18:35 SARS-CoV-2 (PCR) Not Detected (Not Detectd) 05/24/24 18:35 Vital Signs Temp 98 F 06/21/24 06:35 Pulse 87 06/21/24 06:35 Resp 16 06/21/24 06:35 BP 124/86 06/21/24 06:35 Pulse Ox 97 06/21/24 06:35 FiO2 Patient Condition at Discharge: Stable Plan - Discharge Summary Discharge Rx Participant: Yes New Discharge Prescriptions: New Benztropine Mesylate [Cogentin] 1 mg PO BID 30 Days #60 tab Haloperidol Decanoate [Haldol D] 150 mg IM Q12D #1 each [place] Carbonate ER [Lithobid] 450 mg PO HS 30 Days #30 tab Melatonin 10 mg PO HS tab Acetaminophen Tab [Tylenol] 650 mg PO Q4HR PRN #0 tab PRN Reason: Mild Pain (Scale 1 To 3) QUEtiapine [SEROquel] 50 mg PO HS 30 Days #30 tab Discharge Medication List Acetaminophen Tab [Tylenol] 650 mg PO Q4HR PRN #0 tab 06/21/24 [Rx] Benztropine Mesylate [Cogentin] 1 mg PO BID 30 Days #60 tab 06/21/24 [Rx] Haloperidol Decanoate [Haldol D] 150 mg IM Q12D #1 each 06/21/24 [Rx] Hawkeye Carbonate ER [Lithobid] 450 mg PO HS 30 Days #30 tab 06/21/24 [Rx] Melatonin 10 mg PO HS tab 06/21/24 [Rx] QUEtiapine [SEROquel] 50 mg PO HS 30 Days #30 tab 06/21/24 [Rx] Follow up Appointment(s)/Referral(s): [facility] [Outside] - 06/22/24 1:30 pm [facility] [NON-STAFF] - 1 Week Activity/Diet/Wound Care/Special Instructions: Avoid the use of street drugs and alcohol. Take all medications as prescribed. When you are in need of refills on your medications, please contact your medical provider and/or outpatient psychiatrist/provider to have this done. Please go to your scheduled outpatient appointment for aftercare treatment. If symptoms return or become worse, call the crisis line at and/or go to the nearest emergency room for evaluation. National Suicide Hotline 988 Discharge Disposition: HOME SELF-CARE
== END 2024-06-21 12:14 | disposition home or self-care (01) | DRG 750 ==
LOC: EC 08:22 → 3MHU 20:34
PROVIDERS: ADMIT Psychiatry & Neurology Psychiatry; ATTEND Psychiatry & Neurology Psychiatry
DX: F20.9 Schizophrenia, unspecified (principal); F12.10 Cannabis abuse, uncomplicated; Z71.51 Drug abuse counseling and surveillance of drug abuser; F94.0 Selective mutism; G47.00 Insomnia, unspecified; Z11.52 Encounter for screening for COVID-19; Z71.3 Dietary counseling and surveillance; R45.1 Restlessness and agitation; E66.3 Overweight; Z68.26 Body mass index [BMI] 26.0-26.9, adult; Z28.21 Immunization not carried out because of patient refusal; Z87.891 Personal history of nicotine dependence; Z91.148 Patient's other noncompliance with medication regimen for other reason
CPT/HCPCS: 80053; 80061; 80178; 80306; 81001; 82075; 83036; 84443; 85025; 87636; 99285

== ENCOUNTER 2024-07-30 23:20 | Emergency (ER) | payer OTHER ==
[2024-07-30 23:29] VITALS: TEMP 98.9
[2024-07-31 00:12] LABS: Basophils % (A) 0 %; Eosinophils # (A) 0.2 k/uL (0-0.7); Eosinophils % (A) 2 %; HCT 43.1 % (39.0-53.0); HGB 14.1 gm/dL (13.0-17.5); Lymphocytes # (A) 0.6 k/uL (1.0-4.8); Lymphocytes % (A) 7 %; MCH 29.1 pg (25.0-35.0); MCHC 32.6 g/dL (31.0-37.0); MCV 89.3 fL (80.0-100.0); Mean Platelet Volume 7.3; Monocytes # (A) 0.3 k/uL (0-1.0); Monocytes % (A) 4 %; Neutrophils # (A) 7.9 k/uL (1.3-7.7); Neutrophils % (A) 87 %; Platelet Count 220 k/uL (150-450); RBC 4.83 m/uL (4.30-5.90); RDW 14.2 % (11.5-15.5); WBC 9.2 k/uL (3.8-10.6)
[2024-07-31] MEDS: ONDANSETRON 4 MG/2 ML VIAL IVP STA (00:17)
[2024-07-31 00:27] LABS: ALT 16 U/L (4-49); AST 26 U/L (17-59); African American GFR (CKD) >90 (>60 ml/min/1.73 sqM); Alkaline Phosphatase 65 U/L (38-126); Anion Gap 9 mmol/L; Blood Urea Nitrogen 14 mg/dL (9-20); Carbon Dioxide 22 mmol/L (22-30); Chloride 107 mmol/L (98-107); Glucose 84 mg/dL (74-99); Non-African American GFR(CKD) >90 (>60 ml/min/1.73 sqM); Potassium 4.1 mmol/L (3.5-5.1); Sodium 138 mmol/L (137-145); Total Protein 7.6 g/dL (6.3-8.2)
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
[2024-07-31 02:28] VITALS: BP 104/57; PULSE 83; RESP 14
== END 2024-07-31 02:29 | disposition home or self-care (01) ==
LOC: EC 23:20
DX: S39.91XA Unspecified injury of abdomen, initial encounter (principal); Z87.891 Personal history of nicotine dependence; V19.9XXA Pedal cyclist (driver) (passenger) injured in unspecified traffic accident, initial encounter; Y93.55 Activity, bike riding
CPT/HCPCS: 36415; 80053; 85025; 87636; 74177; 99284; 96374; J2405; Q9967

== ENCOUNTER 2024-07-31 10:21 | Emergency (ER) | payer OTHER ==
[2024-07-31 10:27] VITALS: RESP 16; TEMP 98.6
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
[2024-07-31] MEDS: ONDANSETRON ODT 8 MG TAB.RAPDIS PO STA (11:12)
[2024-07-31 11:24] LABS: ALT 18 U/L (4-49); AST 24 U/L (17-59); African American GFR (CKD) >90 (>60 ml/min/1.73 sqM); Alkaline Phosphatase 64 U/L (38-126); Anion Gap 10 mmol/L; Blood Urea Nitrogen 17 mg/dL (9-20); Carbon Dioxide 27 mmol/L (22-30); Chloride 103 mmol/L (98-107); Glucose 107 mg/dL (74-99); Non-African American GFR(CKD) >90 (>60 ml/min/1.73 sqM); Potassium 4.2 mmol/L (3.5-5.1); Sodium 140 mmol/L (137-145); Total Bilirubin 3.3 mg/dL (0.2-1.3); Total Protein 7.9 g/dL (6.3-8.2)
[2024-07-31 12:22] LABS: Basophils % (A) 0 %; Eosinophils # (A) 0.1 k/uL (0-0.7); Eosinophils % (A) 1 %; HCT 43.7 % (39.0-53.0); HGB 14.6 gm/dL (13.0-17.5); Lymphocytes # (A) 0.2 k/uL (1.0-4.8); Lymphocytes % (A) 2 %; MCH 29.6 pg (25.0-35.0); MCHC 33.4 g/dL (31.0-37.0); MCV 88.6 fL (80.0-100.0); Mean Platelet Volume 7.8; Monocytes # (A) 0.3 k/uL (0-1.0); Monocytes % (A) 4 %; Neutrophils # (A) 8.3 k/uL (1.3-7.7); Neutrophils % (A) 93 %; Platelet Count 211 k/uL (150-450); RBC 4.93 m/uL (4.30-5.90); RDW 14.6 % (11.5-15.5)
[2024-07-31] MEDS: ONDANSETRON 4 MG ODT STARTER PACK 2 TAB BTL PO STA (12:59)
[2024-07-31 13:02] VITALS: BP 118/61; PULSE 81
== END 2024-07-31 13:03 | disposition home or self-care (01) ==
LOC: EC 10:21
DX: R11.10 Vomiting, unspecified (principal); F17.290 Nicotine dependence, other tobacco product, uncomplicated; Z59.00 Homelessness unspecified
CPT/HCPCS: 36415; 80053; 85025; 99284; S0119